=== PATIENT | male | born 1960 | race Caucasian/White ===

== ENCOUNTER 2016-04-07 19:54 | Emergency (ER) | payer OTHER ==
[~2016-04-07 19:54] MED LIST: AMLODIPINE BESYL5 MG PO; DEPAKOTE500 MG PO; HYCET1 ML PO; IPRATROPIUM BR0.02 % IN; LEVOTHYROXINE100 MCG PO; LOSARTAN POTASS25 MG PO; OLANZAPINE2.5 MG PO; VENTOLIN HFA IN
--- NOTE | 2016-04-07 23:36 | DIAGNOSTIC IMAGING REPORT ---
PROCEDURE: XR CHEST 2 VIEW INDICATION: SHORTNESS OF BREATH TECHNIQUE: PA and lateral views. COMPARISON: Compared to chest x-ray 02/28/2015. FINDINGS: There is mild basilar parenchymal scarring. Lungs are otherwise are clear. Heart and mediastinum are normal. Thorax is normal. IMPRESSION: 1. Negative chest.
--- NOTE | 2016-04-08 00:23 | ED CLINICAL REPORT ---
Clinical Report - Physicians/Mid Levels [facility] [address] [place] [address] 04/07/2016 19:56 Patient: JACK SINGLETON Time Seen: 21:59 Apr 07 2016. Arrived- By private vehicle. Historian- patient. CPT: ER phys charges level 4 (#[id number]). HISTORY OF PRESENT ILLNESS Chief Complaint: COUGH, SORE THROAT, FEVER, MUSCLE ACHES and "FLU". 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 The illness is described as moderate. The patient has had a cough, chest discomfort, difficulty breathing, a sore throat and fever. He has had muscle aches and a nasal discharge. No sputum production or chest pain. Additional history - The patient has had contact with a sick family member with suspected "flu". Similar symptoms previously: None. Recent medical care: Not recently seen/assessed. REVIEW OF SYSTEMS The patient has had a headache. He has had moderate diarrhea. This has occurred several times. No pedal edema, calf pain or difficulty with urination. PAST HISTORY Chronic obstructive pulmonary disease. Pneumonia. Heart Disease. Sciatica. Lumbar Strain. Peptic Ulcer Disease. Congestive Heart Failure. Hypothyroidism. Hypertension. Bipolar Disorder. COPD - Chronic Obstructive Pulmonary Disease. --21:19 Reginaldo Plascencia R.N. ADDITIONAL SURGERIES: Cholecystectomy. Endoscopy. Hernia Repair. Medications: AmLODIPine Besylate Oral (Tablet 5 mg) 1 tablet, daily. CeleXA Oral 40 mg, daily. HydrOXYzine HCl Oral 25 mg, daily. Levothyroxine Sodium Oral 175 mcg, daily. Losartan Potassium Oral (Tablet 25 mg) 1 tablet, daily. Ventolin HFA Inhalation 2 puffs, 4x a day. ZyPREXA Oral 7.5 mg, daily. Allergies: Naproxen.(nausea) Tegretol. SOCIAL HISTORY Heavy tobacco smoker (cigarette)- 1-2 packs per day. No alcohol use or drug use. ADDITIONAL NOTES The nursing notes have been reviewed. PHYSICAL EXAM Vital Signs: 04/07/2016 21:15 BP: 162/95. HR: 113. RR: 26. O2 saturation: 94%. Temp: 97.4 F. Pain level now: 10. Appearance: Alert. No acute distress. ENT: Nose normal. Pharynx normal. Neck: Normal inspection. CVS: Normal heart rate and rhythm. Heart sounds normal. Pulses normal. Respiratory: Mild respiratory distress. Expiratory moderate bilateral wheezes diffusely. Abdomen: Soft and nontender. Skin: Skin warm. Normal skin color. No rash. Extremities: Extremities exhibit normal ROM. No calf tenderness. No lower extremity edema. Neuro: Oriented X 3. No motor deficit. No sensory deficit. Reflexes normal. LABS, X-RAYS, AND EKG Chest X-ray: No acute disease. Views: PA and lateral. Technique: good. The X-rays were independently viewed by me and interpreted contemporaneously by me. A comparison with prior films reveals that the findings are unchanged. Laboratory Tests: Culture, Strep Screen: (STEVEN: 04/07/2016 21:20) ( MsgRcvd 04/07/2016 21:46) Final results Test Result Flag Units (Reference) RAPID STREP SCREEN - THROAT CALLED TO: NA -- DATE: 04/07/16 NEGATIVE SCREEN: RAPID STREP SCREEN NEGATIVE; CONFIRMATION TO FOLLOW Rapid Influenza Screen: (STEVEN: 04/07/2016 21:20) ( MsgRcvd 04/07/2016 21:51) Final results SPECIMEN DESCRIPTION: NASAL SWAB Test Result Flag Units (Reference) RAPID INFLUENZA SCREEN CALLED TO: ED -- DATE: 04/07/16 INFLUENZA A: NEGATIVE SCREEN FOR INFLUENZA A INFLUENZA B: POSITIVE SCREEN FOR INFLUENZA B . PROGRESS AND PROCEDURES Course of Care: Albuterol HHN Much better: Wheezing resolved. Coughing up some productive phlegm now. Patient is stable. Symptoms much better. Patient/family counseled. Disposition: Discharged. Condition: stable and improved. CLINICAL IMPRESSION Acute exacerbation of COPD. Acute influenza B pharyngitis, laryngitis and tracheitis. INSTRUCTIONS Do not work for three days until better. Drink plenty of fluids. Warnings: Further evaluation is necessary. GENERAL WARNINGS: Return or contact your physician immediately if your condition worsens or changes unexpectedly, if not improving as expected, or if other problems arise. Your Current Medications: CONTINUE TAKING THE FOLLOWING MEDICATIONS: AmLODIPine Besylate Oral : Tablet 5 mg, 1 tablet daily. CeleXA Oral : 40 mg daily. HydrOXYzine HCl Oral : 25 mg daily. Levothyroxine Sodium Oral : 175 mcg daily. Losartan Potassium Oral : Tablet 25 mg, 1 tablet daily. Ventolin HFA Inhalation : 2 puffs 4x a day. ZyPREXA Oral : 7.5 mg daily. Prescription Medications: Albuterol HFA oral inhaler: inhale 2 puffs via spacer every 4 hours as needed for wheezing or difficulty breathing, until symptoms improve. Dispense one (1) unit. One refill. Zithromax 250 mg tablets: take 2 orally today, followed by 1 daily for the next 4 days. No refills. Substitution is permissible. Soma 350 mg: Take 1 orally every 6 hours as needed for muscle spasm. Dispense twenty (20). No refills. Substitution is permissible. Prednisone 40 mg a day for 3 days. OTC Medications: Motrin (available over the counter): take according to label instructions. Follow-up: Follow up with your doctor in three days. Call for the next available appointment. Understanding of the discharge instructions verbalized by patient. (Electronically signed by Judah Neff MD 04/09/2016 20:17)
--- NOTE | 2016-04-08 00:23 | ED NURSING NOTES ---
Clinical Report - Nurses [facility] [address] [place] [address] 04/07/2016 19:56 Patient: JACK SINGLETON TRIAGE Triage time 21:15. Acuity: LEVEL 3. Chief Complaint: CHILLS, MUSCLE ACHES, HEADACHE, SORE THROAT, DYSPNEA and COUGH. 21:20. Alert. SEPSIS SCREEN: Sepsis Screen. Negative (no infection suspected/documented). VERITO COMA SCORE: Verito Coma Scale: 15- eyes open spontaneously (4); best verbal response- oriented x 4 (5); best motor response- obeys commands (6). --21:20 Reginaldo Plascencia R.N. 21:15 04/07/16. BP: 162/95. HR: 113. RR: 26. O2 saturation: 94%. Temp: 97.4 F. Pain level now: 09/09. --21:20 Reginaldo Plascencia R.N. Weight: 81.6 kg estimated. Height/Length: 67 inches Estimated. BMI: 28.2. --21:15 Irma Espinal R.N. Medications AmLODIPine Besylate Oral (Tablet 5 mg) 1 tablet, daily. CeleXA Oral 40 mg, daily. HydrOXYzine HCl Oral 25 mg, daily. Levothyroxine Sodium Oral 175 mcg, daily. Losartan Potassium Oral (Tablet 25 mg) 1 tablet, daily. Ventolin HFA Inhalation 2 puffs, 4x a day. ZyPREXA Oral 7.5 mg, daily. --21:19 Reginaldo Plascencia R.N. Medication/allergy information source: the patient. --21:20 Reginaldo Plascencia R.N. Allergies Naproxen.(nausea) Tegretol. --21:19 Reginaldo Plascencia R.N. History Arrived by private vehicle. Historian: patient. Unaccompanied. Primary physician (Carin). Onset. (3 - 4 days ago). 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 PAST MEDICAL HX: Immunizations: up-to-date. SOCIAL HX: Current every day heavy tobacco smoker- 1-2 packs per day. No alcohol use or drug use. No infectious disease exposure. ABUSE ASSESSMENT: No report of abuse. FALL RISK ASSESSMENT: Fall risk assessment completed. No fall risk identified. NUTRITIONAL RISK ASSESSMENT: The nutritional risk assessment revealed no deficiencies. FUNCTIONAL ASSESSMENT: Functional assessment: no impairments noted. LEARNING NEEDS ASSESSMENT: The learning needs assessment revealed no barriers. SKIN INTEGRITY ASSESSMENT: Skin integrity risk assessment completed. No skin integrity risk identified. --21:20 Reginaldo Plascencia R.N. PROBLEMS: Heart Disease. Sciatica. Lumbar Strain. Peptic Ulcer Disease. Congestive Heart Failure. Hypothyroidism. Hypertension. Bipolar Disorder. COPD - Chronic Obstructive Pulmonary Disease. --21:19 Reginaldo Plascencia R.N. ADDITIONAL SURGERIES: Cholecystectomy. Endoscopy. Hernia Repair. --21:19 Reginaldo Plascencia R.N. Interventions ID band on patient. To treatment room. --21:20 Reginaldo Plascencia R.N. PHYSICAL ASSESSMENT Ambulatory to room. GENERAL / NEURO / PSYCH: Alert. Oriented X 4. RESPIRATORY: Mild respiratory distress. Expiratory bilateral wheezes diffusely. CVS: Cardiac rhythm: sinus tachycardia. Capillary refill less than 2 seconds. GI / : Abdomen soft. SKIN: Skin intact. Skin is warm and dry. Normal skin turgor. --22:03 Reginaldo Smith R.N. NURSING PROGRESS NOTES Patient gowned. Reassurance given to the patient. Patient identifiers checked. Call light placed in reach. Side rails up x 1. Bed placed in lowest position. Brakes of bed on. Patient ready for evaluation- chart flagged and ED physician notified. --22:03 Reginaldo Smith R.N. 22:27 04/07/2016 Duoneb (Ipratropium-Albuterol) Neb TX Nebulizer 1 unit dose given. Given by the respiratory therapist. Allergies verified and confirmed 5 rights. --22:52 Jose Clark, ER Wing Mailer Machine Operator Care transferred and report received (Reginaldo Levin, RN). --23:40 Irma Espinal R.N. DISPOSITION / DISCHARGE Departure time: 0030. Condition at departure: improved. No learning barriers present. Discharge instructions provided and reviewed with the patient. Reviewed medication(s). Prescription(s) given to the patient (Albuterol, Zithromax, Soma, Prednisone). Patient verbalized understanding. Written instructions provided in Italian. The patient was discharged by the physician. He was discharged home and unaccompanied at time of discharge. He left the Emergency Department ambulatory and via private vehicle. Patient driving. Medication list reviewed and validated with the patient. --04:38 Irma Espinal R.N. 00:30 04/08/16. BP: 146/80. HR: 100. RR: 20 (unlabored). O2 saturation: 96% on room air. Temp: deferred. Pain level now: 11/09. --04:38 Irma Espinal R.N. Locked/Released at 04/08/2016 4:40 by Irma Espinal R.N.
--- NOTE | 2016-04-08 00:23 | ED CLINICAL REPORT ---
Clinical Report - Physicians/Mid Levels [facility] [address] [place] [address] 04/07/2016 19:56 Patient: JACK SINGLETON Time Seen: 21:59 Apr 07 2016. Arrived- By private vehicle. Historian- patient. CPT: ER phys charges level 4 (#[id number]). HISTORY OF PRESENT ILLNESS Chief Complaint: COUGH, SORE THROAT, FEVER, MUSCLE ACHES and "FLU". 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 The illness is described as moderate. The patient has had a cough, chest discomfort, difficulty breathing, a sore throat and fever. He has had muscle aches and a nasal discharge. No sputum production or chest pain. Additional history - The patient has had contact with a sick family member with suspected "flu". Similar symptoms previously: None. Recent medical care: Not recently seen/assessed. REVIEW OF SYSTEMS The patient has had a headache. He has had moderate diarrhea. This has occurred several times. No pedal edema, calf pain or difficulty with urination. PAST HISTORY Chronic obstructive pulmonary disease. Pneumonia. Heart Disease. Sciatica. Lumbar Strain. Peptic Ulcer Disease. Congestive Heart Failure. Hypothyroidism. Hypertension. Bipolar Disorder. COPD - Chronic Obstructive Pulmonary Disease. --21:19 Reginaldo Plascencia R.N. ADDITIONAL SURGERIES: Cholecystectomy. Endoscopy. Hernia Repair. Medications: AmLODIPine Besylate Oral (Tablet 5 mg) 1 tablet, daily. CeleXA Oral 40 mg, daily. HydrOXYzine HCl Oral 25 mg, daily. Levothyroxine Sodium Oral 175 mcg, daily. Losartan Potassium Oral (Tablet 25 mg) 1 tablet, daily. Ventolin HFA Inhalation 2 puffs, 4x a day. ZyPREXA Oral 7.5 mg, daily. Allergies: Naproxen.(nausea) Tegretol. SOCIAL HISTORY Heavy tobacco smoker (cigarette)- 1-2 packs per day. No alcohol use or drug use. ADDITIONAL NOTES The nursing notes have been reviewed. PHYSICAL EXAM Vital Signs: 04/07/2016 21:15 BP: 162/95. HR: 113. RR: 26. O2 saturation: 94%. Temp: 97.4 F. Pain level now: 10. Appearance: Alert. No acute distress. ENT: Nose normal. Pharynx normal. Neck: Normal inspection. CVS: Normal heart rate and rhythm. Heart sounds normal. Pulses normal. Respiratory: Mild respiratory distress. Expiratory moderate bilateral wheezes diffusely. Abdomen: Soft and nontender. Skin: Skin warm. Normal skin color. No rash. Extremities: Extremities exhibit normal ROM. No calf tenderness. No lower extremity edema. Neuro: Oriented X 3. No motor deficit. No sensory deficit. Reflexes normal. LABS, X-RAYS, AND EKG Chest X-ray: No acute disease. Views: PA and lateral. Technique: good. The X-rays were independently viewed by me and interpreted contemporaneously by me. A comparison with prior films reveals that the findings are unchanged. Laboratory Tests: Culture, Strep Screen: (STEVEN: 04/07/2016 21:20) ( MsgRcvd 04/07/2016 21:46) Final results Test Result Flag Units (Reference) RAPID STREP SCREEN - THROAT CALLED TO: NA -- DATE: 04/07/16 NEGATIVE SCREEN: RAPID STREP SCREEN NEGATIVE; CONFIRMATION TO FOLLOW Rapid Influenza Screen: (STEVEN: 04/07/2016 21:20) ( MsgRcvd 04/07/2016 21:51) Final results SPECIMEN DESCRIPTION: NASAL SWAB Test Result Flag Units (Reference) RAPID INFLUENZA SCREEN CALLED TO: ED -- DATE: 04/07/16 INFLUENZA A: NEGATIVE SCREEN FOR INFLUENZA A INFLUENZA B: POSITIVE SCREEN FOR INFLUENZA B . PROGRESS AND PROCEDURES Course of Care: Albuterol HHN Much better: Wheezing resolved. Coughing up some productive phlegm now. Patient is stable. Symptoms much better. Patient/family counseled. Disposition: Discharged. Condition: stable and improved. CLINICAL IMPRESSION Acute exacerbation of COPD. Acute influenza B pharyngitis, laryngitis and tracheitis. INSTRUCTIONS Do not work for three days until better. Drink plenty of fluids. Warnings: Further evaluation is necessary. GENERAL WARNINGS: Return or contact your physician immediately if your condition worsens or changes unexpectedly, if not improving as expected, or if other problems arise. Your Current Medications: CONTINUE TAKING THE FOLLOWING MEDICATIONS: AmLODIPine Besylate Oral : Tablet 5 mg, 1 tablet daily. CeleXA Oral : 40 mg daily. HydrOXYzine HCl Oral : 25 mg daily. Levothyroxine Sodium Oral : 175 mcg daily. Losartan Potassium Oral : Tablet 25 mg, 1 tablet daily. Ventolin HFA Inhalation : 2 puffs 4x a day. ZyPREXA Oral : 7.5 mg daily. Prescription Medications: Albuterol HFA oral inhaler: inhale 2 puffs via spacer every 4 hours as needed for wheezing or difficulty breathing, until symptoms improve. Dispense one (1) unit. One refill. Zithromax 250 mg tablets: take 2 orally today, followed by 1 daily for the next 4 days. No refills. Substitution is permissible. Soma 350 mg: Take 1 orally every 6 hours as needed for muscle spasm. Dispense twenty (20). No refills. Substitution is permissible. Prednisone 40 mg a day for 3 days. OTC Medications: Motrin (available over the counter): take according to label instructions. Follow-up: Follow up with your doctor in three days. Call for the next available appointment. Understanding of the discharge instructions verbalized by patient. (Electronically signed by Judah Neff MD 04/09/2016 20:17)
--- NOTE | 2016-04-08 00:24 | ED ORDER SUMMARY ---
..... Patient: JACK SINGLETON OrderSheet [facility] VisitID: [id number] [place] [address] 55y, M Registration Date/Time: 04/07/2016 ORDER SHEET Weight: 81.6 kg (estimated) Allergies: Naproxen, Tegretol GENERAL ORDERS: Rapid Influenza Screen (Nasal Pharyngeal) (nasal swab) Urgent (21:30 04/07/2016 JQuivey R.N. per protocol) (Ack 21:32 LTapper) (21:54 JRomanelli R.N.) Culture, Strep Screen Urgent (21:31 04/07/2016 JQuivey R.N. per protocol) (Ack 21:32 LTapper) (21:57 JRomanelli R.N.) RT Evaluation Stat (21:59 04/07/2016 Coltonelli R.N. verbal order read back to Maite GARCIA) (Ack 22:01 LTapper) (22:52 CHagerty ER Mate Fishing Vessel) Chest 2V Urgent (21:59 04/07/2016 JRomanelli R.N. verbal order read back to Maite GARCIA) (Ack 22:01 LTapper) (22:37 MCabell) MEDICATION ORDERS: DuoNeb Neb Tx 1 unit dose (NOW) (21:58 04/07/2016 Eva R.N. verbal order read back to Maite GARCIA) (22:[facility] F[facility] IV FLUIDS: ORDER SHEET NOTES: [Electronically signed by Irma Espinal R.N. (04:40 04/08/2016)] [Electronically signed by Judah Neff MD (20:17 04/09/2016)] [Electronically locked/signed by Irma Espinal R.N. (04:40 04/08/2016)]
--- NOTE | 2016-04-08 00:24 | ED ORDER SUMMARY ---
..... Patient: JACK SINGLETON OrderSheet [facility] VisitID: [id number] [place] [address] 55y, M Registration Date/Time: 04/07/2016 ORDER SHEET Weight: 81.6 kg (estimated) Allergies: Naproxen, Tegretol GENERAL ORDERS: Rapid Influenza Screen (Nasal Pharyngeal) (nasal swab) Urgent (21:30 04/07/2016 JQuivey R.N. per protocol) (Ack 21:32 LTapper) (21:54 JRomanelli R.N.) Culture, Strep Screen Urgent (21:31 04/07/2016 JQuivey R.N. per protocol) (Ack 21:32 LTapper) (21:57 JRomanelli R.N.) RT Evaluation Stat (21:59 04/07/2016 Coltonelli R.N. verbal order read back to Maite GARCIA) (Ack 22:01 LTapper) (22:52 CHagerty ER Director Of Email Marketing) Chest 2V Urgent (21:59 04/07/2016 JRomanelli R.N. verbal order read back to Maite GARCIA) (Ack 22:01 LTapper) (22:37 MCabell) MEDICATION ORDERS: DuoNeb Neb Tx 1 unit dose (NOW) (21:58 04/07/2016 Eva R.N. verbal order read back to Maite GARCIA) (22:52 [facility] Director Of Email Marketing) IV FLUIDS: ORDER SHEET NOTES: [Electronically signed by Irma Espinal R.N. (04:40 04/08/2016)] [Electronically signed by Judah Neff MD (20:17 04/09/2016)] [Electronically locked/signed by Irma Espinal R.N. (04:40 04/08/2016)]
--- NOTE | 2016-04-09 20:17 | ED MAR SUMMARY ---
..... Medication Administration Record [facility] [address] [place] [address] Patient: JACK SINGLETON Visit ID: [id number] 55y, M Weight: 81.6 kg Height/Length: 67 in BMI: 28.2 ALLERGIES: Naproxen, Tegretol Given 22:27 04/07/2016 Jose Clark, ER Parts Analyst Medication Administered: DUONEB [NEB TX] (IPRATROPIUM-ALBUTEROL), Dose: 1 unit dose Nebulizer Neb TX. Medication Ordered: DuoNeb Neb Tx 1 unit dose (NOW).
--- NOTE | 2016-04-09 20:17 | ED MED RECONCILIATION SUMMARY ---
Patient: JACK SINGLETON Medication Reconciliation Report [facility] VisitID: [id number] [address] [place] [address] 55y, M Registration Date/Time: 04/07/2016 Weight: 81.6 kg Height/Length: 67 in. BMI: 28.2 ALLERGIES: Naproxen, Tegretol The patient's Home Medications are listed below: CONTINUE TAKING THE FOLLOWING MEDICATIONS: AmLODIPine Besylate Oral (5 mg) 1 tablet, daily CeleXA Oral 40 mg, daily HydrOXYzine HCl Oral 25 mg, daily Levothyroxine Sodium Oral 175 mcg, daily Losartan Potassium Oral (25 mg) 1 tablet, daily Ventolin HFA Inhalation 2 puffs, 4x a day ZyPREXA Oral 7.5 mg, daily The source(s) of the original Home Medication information: patient The following Medications were given to the patient in the Emergency Department: Duoneb [Neb Tx] Neb TX 1 unit dose, administered: 04/07/2016 10:27:00 PM The following Medications were prescribed to the patient: Motrin (available over the counter): take according to label instructions. -- Judah Neff MD Prednisone 40 mg a day for 3 days. -- Judah Neff MD Albuterol HFA oral inhaler: inhale 2 puffs via spacer every 4 hours as needed for wheezing or difficulty breathing, until symptoms improve. Dispense one (1) unit. One refill. -- Judah Neff MD Zithromax 250 mg tablets: take 2 orally today, followed by 1 daily for the next 4 days. No refills. Substitution is permissible. -- Judah Neff MD Soma 350 mg: Take 1 orally every 6 hours as needed for muscle spasm. Dispense twenty (20). No refills. Substitution is permissible. -- Judah Neff MD
--- NOTE | 2016-04-09 20:17 | ED MAR SUMMARY ---
..... Medication Administration Record [facility] [address] [place] [address] Patient: JACK SINGLETON Visit ID: [id number] 55y, M Weight: 81.6 kg Height/Length: 67 in BMI: 28.2 ALLERGIES: Naproxen, Tegretol Given 22:27 04/07/2016 Jose Clark, ER Concession Manager Medication Administered: DUONEB [NEB TX] (IPRATROPIUM-ALBUTEROL), Dose: 1 unit dose Nebulizer Neb TX. Medication Ordered: DuoNeb Neb Tx 1 unit dose (NOW).
--- NOTE | 2016-04-09 20:17 | ED DISCHARGE INSTRUCTIONS ---
Patient: JACK SINGLETON General Instructions [facility] VisitID: [id number] [place] [address] 55y, M Registration Date/Time: 04/07/2016 Acute exacerbation of COPD. Acute influenza B pharyngitis, laryngitis and tracheitis. INSTRUCTIONS Do not work for three days until better. Drink plenty of fluids. Warnings: Further evaluation is necessary. GENERAL WARNINGS: Return or contact your physician immediately if your condition worsens or changes unexpectedly, if not improving as expected, or if other problems arise. Your Current Medications: CONTINUE TAKING THE FOLLOWING MEDICATIONS: AmLODIPine Besylate Oral : Tablet 5 mg, 1 tablet daily. CeleXA Oral : 40 mg daily. HydrOXYzine HCl Oral : 25 mg daily. Levothyroxine Sodium Oral : 175 mcg daily. Losartan Potassium Oral : Tablet 25 mg, 1 tablet daily. Ventolin HFA Inhalation : 2 puffs 4x a day. ZyPREXA Oral : 7.5 mg daily. Prescription Medications: Albuterol HFA oral inhaler: inhale 2 puffs via spacer every 4 hours as needed for wheezing or difficulty breathing, until symptoms improve. Dispense one (1) unit. One refill. Zithromax 250 mg tablets: take 2 orally today, followed by 1 daily for the next 4 days. No refills. Substitution is permissible. Soma 350 mg: Take 1 orally every 6 hours as needed for muscle spasm. Dispense twenty (20). No refills. Substitution is permissible. Prednisone 40 mg a day for 3 days. OTC Medications: Motrin (available over the counter): take according to label instructions. Follow-up: Follow up with your doctor in three days. Call for the next available appointment. Understanding of the discharge instructions verbalized by patient. ADDITIONAL INFORMATION Viral Respiratory Illness W/ Wheezing [Adult] You have an Upper Respiratory Illness (URI) caused by a virus. This illness is contagious during the first few days. It is spread through the air by coughing and sneezing or by direct contact (touching the sick person and then touching your own eyes, nose or mouth). When the infection causes a lot of irritation, the air passages can go into spasm. This causes wheezing and shortness of breath. Most viral illnesses resolve within 7-10 days with rest and simple home remedies, although the illness may sometimes last for several weeks. Antibiotics will not kill a virus and are generally not prescribed for this condition. Home Care: If symptoms are severe, rest at home for the first 2-3 days. When resuming activity, don't let yourself become overly tired. Avoid exposure to cigarette smoke (yours or others). You may use acetaminophen (Tylenol) or ibuprofen (Motrin, Advil) to control pain, unless another medicine was prescribed. [NOTE: If you have chronic liver or kidney disease or ever had a stomach ulcer or GI bleeding, talk with your doctor before using these medicines.] (Aspirin should never be used in anyone under 18 years of age who is ill with a fever. It may cause severe liver damage.) Your appetite may be poor so a light diet is fine. Avoid dehydration by drinking 6-8 glasses of fluids per day (water, soft drinks, juices, tea, soup). Extra fluids will help loosen secretions in the nose and lungs. [id number] cold medicines will not shorten the duration of the illness, but may be helpful for the following symptoms: cough (Robitussin DM); sore throat (Chloraseptic lozenges or spray); nasal and sinus congestion (Actifed or Sudafed). [NOTE: Do not use decongestants if you have high blood pressure.] Follow Up with your doctor or as advised if you are not improving over the next week. Get Prompt Medical Attention if any of the following occur: Cough with lots of colored sputum (mucus) or blood in your sputum Chest pain, shortness of breath, wheezing or difficulty breathing Severe headache; face, neck or ear pain Fever of 100.4F (38C) or higher, or as directed by your healthcare provider Unable to swallow due to throat pain COPD Flare Both emphysema and chronic bronchitis are forms of chronic obstructive pulmonary disease (COPD). It is most often caused by many years of smoking tobacco. Many things can make your lung disease suddenly get worse. These causes include the common cold, pneumonia, acute bronchitis, missing doses of your regular breathing medicines, or being around smoke, dust, or other air pollutants. A COPD flare may last 7 to 14 days. Your doctor may prescribe medicineto relax your airways and prevent wheezing. Your doctor may also prescribe antibiotics if he or she thinks you havea bacterial infection. Prednisone can helpease inflammation in a severe attack. Home care Here are things you can do at home: Drink lots of water or other fluids (at least 10 glasses a day) during an attack. This will loosen lung secretions and make it easier to breathe. If you have heart or kidney disease, check with your doctor before you drink extra amounts of fluids. Take prescribed medicine exactly at the times advised. If you have a hand-held inhaler or aerosol breathing medicine, don't use it more than once every 4 hours, unless your doctor tells you to. If you were givenan antibiotic or prednisone, take all of the medicine even if you are feeling better after a few days. Don't smoke. Avoid being aroundthe smoke of others. If you were given an inhaler, use it exactly as directed. If you need to use it more often than prescribed, your condition may be getting worse. Call your doctor. Follow-up care Follow up with your health care provider.If you are 65 or older or have chronic asthma or COPD, you should get a single dose of the pneumococcal vaccine and aflu shot each year. You may need a second dose of the pneumococcal vaccine if you had the first dose at a younger age. Your health care provider will let you know if you need a second dose. For all other people, the usual dose for the pneumococcal vaccine is 1 or 2 shots. Yourprovider can discuss this with you. When to seek medical care Get prompt medical attention ifany of these occur: Increased wheezing or shortness of breath Need to use your inhalers more often than usual without relief Fever of 100.4F(38C) or higher, or as directed by your health care provider Coughing up lots of dark-colored or bloody sputum (mucus) Chest pain with each breath You do not start to improve within 24 hours Albuterol Sulfate Pressurized inhalation, suspension What is this medicine? ALBUTEROL (al BYOO ter ole) is a bronchodilator. It helps open up the airways in your lungs to make it easier to breathe. This medicine is used to treat and to prevent bronchospasm. How should I use this medicine? This medicine is for inhalation through the mouth. Follow the directions on your prescription label. Take your medicine at regular intervals. Do not use more often than directed. Make sure that you are using your inhaler correctly. Ask you doctor or health care provider if you have any questions. Talk to your zone maintenance technician regarding the use of this medicine in children. Special care may be needed. What side effects may I notice from receiving this medicine? Side effects that you should report to your doctor or health healthcare network pricing consultant as soon as possible: allergic reactions like skin rash, itching or hives, swelling of the face, lips, or tongue breathing problems chest pain feeling faint or lightheaded, falls high blood pressure irregular heartbeat fever muscle cramps or weakness pain, tingling, numbness in the hands or feet vomiting Side effects that usually do not require medical attention (report to your doctor or health healthcare network pricing consultant if they continue or are bothersome): cough difficulty sleeping headache nervousness or trembling stomach upset stuffy or runny nose throat irritation unusual taste What may interact with this medicine? anti-infectives like chloroquine and pentamidine caffeine cisapride diuretics medicines for colds medicines for depression or for emotional or psychotic conditions medicines for weight loss including some herbal products methadone some antibiotics like clarithromycin, erythromycin, levofloxacin, and linezolid some heart medicines steroid hormones like dexamethasone, cortisone, hydrocortisone theophylline thyroid hormones What if I miss a dose? If you miss a dose, use it as soon as you can. If it is almost time for your next dose, use only that dose. Do not use double or extra doses. Where should I keep my medicine? Keep out of the reach of children. Store at room temperature between 15 and 30 degrees C (59 and 86 degrees F). The contents are under pressure and may burst when exposed to heat or flame. Do not freeze. This medicine does not work as well if it is too cold. Throw away any unused medicine after the expiration date. Inhalers need to be thrown away after the labeled number of puffs have been used or by the expiration date; whichever comes first. Ventolin HFA should be thrown away 12 months after removing from foil pouch. Check the instructions that come with your medicine. What should I tell my health care provider before I take this medicine? They need to know if you have any of the following conditions: diabetes heart disease or irregular heartbeat high blood pressure pheochromocytoma seizures thyroid disease an unusual or allergic reaction to albuterol, levalbuterol, sulfites, other medicines, foods, dyes, or preservatives or trying to get breast-feeding What should I watch for while using this medicine? Tell your doctor or health healthcare network pricing consultant if your symptoms do not improve. Do not use extra albuterol. If your asthma or bronchitis gets worse while you are using this medicine, call your doctor right away. If your mouth gets dry try chewing sugarless gum or sucking hard candy. Drink water as directed. You have been given the following additional information: Uri, Viral W/ Wheezing (Adult) COPD Flare Albuterol Sulfate Pressurized inhalation, suspension Do not work for three days until better. (Electronically signed by Judah Neff MD 04/09/2016 20:17)
--- NOTE | 2016-04-09 20:17 | ED MED RECONCILIATION SUMMARY ---
Patient: JACK SINGLETON Medication Reconciliation Report [facility] VisitID: [id number] [address] [place] [address] 55y, M Registration Date/Time: 04/07/2016 Weight: 81.6 kg Height/Length: 67 in. BMI: 28.2 ALLERGIES: Naproxen, Tegretol The patient's Home Medications are listed below: CONTINUE TAKING THE FOLLOWING MEDICATIONS: AmLODIPine Besylate Oral (5 mg) 1 tablet, daily CeleXA Oral 40 mg, daily HydrOXYzine HCl Oral 25 mg, daily Levothyroxine Sodium Oral 175 mcg, daily Losartan Potassium Oral (25 mg) 1 tablet, daily Ventolin HFA Inhalation 2 puffs, 4x a day ZyPREXA Oral 7.5 mg, daily The source(s) of the original Home Medication information: patient The following Medications were given to the patient in the Emergency Department: Duoneb [Neb Tx] Neb TX 1 unit dose, administered: 04/07/2016 10:27:00 PM The following Medications were prescribed to the patient: Motrin (available over the counter): take according to label instructions. -- Judah Neff MD Prednisone 40 mg a day for 3 days. -- Judah Neff MD Albuterol HFA oral inhaler: inhale 2 puffs via spacer every 4 hours as needed for wheezing or difficulty breathing, until symptoms improve. Dispense one (1) unit. One refill. -- Judah Neff MD Zithromax 250 mg tablets: take 2 orally today, followed by 1 daily for the next 4 days. No refills. Substitution is permissible. -- Judah Neff MD Soma 350 mg: Take 1 orally every 6 hours as needed for muscle spasm. Dispense twenty (20). No refills. Substitution is permissible. -- Judah Neff MD
== END 2016-04-08 00:30 | disposition home or self-care (01) ==
LOC: ED SRH 19:54
DX: J44.1 Chronic obstructive pulmonary disease with (acute) exacerbation (principal); J10.1 Influenza due to other identified influenza virus with other respiratory manifestations; F31.9 Bipolar disorder, unspecified; I10 Essential (primary) hypertension; I50.9 Heart failure, unspecified; Z79.51 Long term (current) use of inhaled steroids; Z79.899 Other long term (current) drug therapy; Z88.8 Allergy status to other drugs, medicaments and biological substances; F17.210 Nicotine dependence, cigarettes, uncomplicated; Z88.6 Allergy status to analgesic agent
CPT/HCPCS: 90154; 90159; 90627; 91400

== ENCOUNTER 2016-04-09 19:44 | Emergency (ER) | payer OTHER ==
--- NOTE | 2016-04-09 22:27 | DIAGNOSTIC IMAGING REPORT ---
PROCEDURE: XR CHEST 2 VIEW INDICATION: SHORTNESS OF BREATH TECHNIQUE: PA and lateral views. COMPARISON: Impaired to chest x-ray and 04/07/2016. FINDINGS: Lungs are clear. Heart and mediastinum are normal. Thorax is normal. IMPRESSION: 1. Negative chest.
--- NOTE | 2016-04-09 23:46 | ED NURSING NOTES ---
Clinical Report - Nurses [facility] [address] [place] [address] 04/09/2016 19:45 Patient: JACK SINGLETON TRIAGE Triage time 20:03. Acuity: LEVEL 3. Chief Complaint: HEADACHE, DYSPNEA and COUGH (Jack says he was seen in the ER 2 days ago, reports he was dx with Influenza B and given Prednisone and Soma for pain and an antibiotic but has had no relief. He says he has gotten worse over the last 2 days. Smoking 10 cigarettes in the last 2 days versus a normal 1.5 packs. Alleviating factors: warm fluids help sore throat; Aggravating factors: moving around leads to dyspnea on exertion.). Alert. SEPSIS SCREEN: Sepsis Screen: negative. Infection suspected/documented. --20:08 Shaq Hidalgo R.N. 19:59 04/09/16. BP: 158/81 (regular adult cuff) taken on the left arm, via an automated monitor, while sitting. HR: 108 (tachycardic). RR: 26 (regular, unlabored and rapid). O2 saturation: 92% on room air. Temp: 98.6 F (oral). Pain level now: 11/09. --20:08 Shaq Hidalgo R.N. Weight: 88.4 kg stated. Height/Length: 69 inches Per Patient. BMI: 28.8. --20:03 Shaq Hidalgo R.N. Medications AmLODIPine Besylate Oral (Tablet 5 mg) 1 tablet, daily. CeleXA Oral 40 mg, daily. --20:04 Shaq Hidalgo R.N. HydrOXYzine HCl Oral 25 mg, daily. Levothyroxine Sodium Oral 175 mcg, daily. Losartan Potassium Oral (Tablet 25 mg) 1 tablet, daily. Ventolin HFA Inhalation 2 puffs, 4x a day. ZyPREXA Oral 7.5 mg, daily. --20:04 Shaq Hidalgo R.N. PredniSONE Oral. --20:05 Shaq Hidalgo R.N. Soma Oral. --20:05 Shaq Hidalgo R.N. Antibiotic. --20:05 Shaq Hidalgo R.N. Methocarbamol Oral. --20:05 Shaq Hidalgo R.N. Medication/allergy information source: the patient. --20:08 Shaq Hidalgo R.N. Allergies Naproxen.(nausea) Tegretol. --20:04 Shaq Hidalgo R.N. History Arrived by private vehicle. Historian: patient. Unaccompanied. Primary physician (Lisa Del Rosario). The patient has had chills, severe fatigue and abdominal pain, poor appetite and chest pain (When coughing). He has had moderate difficulty breathing. The patient has also had dyspnea on exertion, diarrhea, nausea and dizziness. Reports severe muscle aches and experiencing mild sweating episodes. He has had a severe, sharp frontal headache. No fever, vomiting or difficulty with urination. Treatment ENVIRONMENTAL HEALTH AND SAFETY INTERN: None. PAST MEDICAL HX: Has not received seasonal influenza immunization. SOCIAL HX: Current every day heavy tobacco smoker (cigarette)- 1-2 packs per day. No alcohol use or drug use. He has not traveled outside the [place] The patient was not exposed to MRSA. No infectious disease exposure. ABUSE ASSESSMENT: Abuse assessment: The patient was asked "Do you feel safe in your home?" and "Has anyone hurt you or threatened to hurt you?". No report of abuse. SELF HARM ASSESSMENT: A self harm assessment was performed. The patient answered "no" to the question "Do you have thoughts of harming or killing yourself?" and "Have you recently had thoughts about harming or killing others?". FALL RISK ASSESSMENT: Fall risk assessment completed. No fall risk identified. NUTRITIONAL RISK ASSESSMENT: The nutritional risk assessment revealed no deficiencies. FUNCTIONAL ASSESSMENT: Functional assessment: no impairments noted. LEARNING NEEDS ASSESSMENT: The learning needs assessment revealed no barriers. SKIN INTEGRITY ASSESSMENT: Skin integrity risk assessment completed. No skin integrity risk identified. --20:08 Shaq Hidalgo R.N. PROBLEMS: Chronic Back Pain. Pneumonia. Upper Extremity Pain. GI Bleeding. Heart Disease. Abscess Check. Cellulitis. Sciatica. Back Pain. Myofascial Strain. Lumbar Strain. Acute Pain. Lung Disease. Myalgias. Viral Disease. Abnormal Test. Sprain. Cholecystitis. Peptic Ulcer Disease. Congestive Heart Failure. URI. Asthma. Bronchospasm. Bronchitis. Immunizations. Stomach ulcers. Hypothyroidism. Hypertension. Bipolar Disorder. COPD - Chronic Obstructive Pulmonary Disease. Substance Abuse. --20:05 Shaq Hidalgo R.N. ADDITIONAL SURGERIES: Cholecystectomy. Endoscopy. Hernia Repair. --20:05 Shaq Hidalgo R.N. Assessment GENERAL / NEURO / PSYCH: Alert. Oriented X 4. Appears in no acute distress. Verito Coma Scale: 15- eyes open spontaneously (4); best verbal response- oriented x 4 (5); best motor response- obeys commands (6). Patient appears calm and cooperative. RESPIRATORY: Moderate respiratory distress. Expiratory bilateral wheezes posteriorly and in the bases. Coarse crackles present diffusely in both lungs. CVS: Capillary refill less than 2 seconds. SKIN: Skin is warm and dry. --20:08 Shaq Hidalgo R.N. Interventions ID band on patient. To treatment room. --20:08 Shaq Hidalgo R.N. PHYSICAL ASSESSMENT Ambulatory to room. GENERAL / NEURO / PSYCH: Alert. Oriented X 4. Appears in distress. Verito Coma Scale: 15- eyes open spontaneously (4); best verbal response- oriented x 4 (5); best motor response- obeys commands (6). HEENT: Right ear within normal limits. Left ear within normal limits. Pharyngeal erythema. No pharyngeal lesions. RESPIRATORY: Moderate respiratory distress. The patient can speak in full sentences. Nonproductive cough. Chest nontender. Expiratory bilateral wheezes diffusely, anteriorly and posteriorly. Fine crackles present diffusely in both lungs. CVS: Pulses: right radial 2+ and left radial 2+. Capillary refill less than 2 seconds. SKIN: Skin intact. Skin is warm and dry. --20:15 Shaq Hidalgo R.N. NURSING PROGRESS NOTES The initial plan of care for this patient has been created This plan of care was discussed with the patient. Pulse oximeter and NIBP monitor placed on patient. Patient gowned. Reassurance given to the patient. Two patient identifiers checked. Call light placed in reach. Side rails up x 2. Bed placed in lowest position. Brakes of bed on. Patient ready for evaluation- ED physician and PA notified. --20:09 Shaq Hidalgo R.N. Patient transported to radiology by stretcher with tech. --21:03 Shaq Hidalgo R.N. EKG time: (2120). EKG was ordered, performed by a tech and shown to the ED physician. --21:21 Jose Clark, ER Shell Sorter 20:45 04/09/2016 Duoneb (Ipratropium-Albuterol) Neb TX Nebulizer 1 unit dose given. Given by the respiratory therapist. Allergies verified and confirmed 5 rights. --21:23 Shaq Hidalgo R.N. 21:37 04/09/2016 Site #1 started via IV in the left antecubital space with an 20g angiocath, with aseptic technique and good blood return; one attempt. Blood drawn: rainbow set. Labeled in the presence of the patient and sent to the lab. Saline lock flushed with 10 mL saline. --21:37 Shaq Hidalgo R.N. 21:37 04/09/2016 Started bag #1 1000 mL IV Fluids IV NS (Saline); bolus of 500 mL over 30 minute(s) then at 1000 mL/hr via site #1. Allergies verified and confirmed 5 rights. IV patency established. IV site checked: no pain, redness, or swelling. IV flushed thoroughly pre- and post-medication administration. Completed per protocol. --21:37 Shaq Hidalgo R.N. Patient ID band checked for patient name and birthdate: patient confirmed. Blood samples drawn from the right antecubital space with Vacutainer and 22g butterfly by nurse per protocol ; labeled in presence of the patient and sent to lab: blood culture (1st set). --21:38 Shaq Hidalgo R.N. 21:38 04/09/16. BP: 119/80 (regular adult cuff) taken on the right arm, via an automated monitor, while lying. HR: 101 (regular and tachycardic). RR: 26 (regular, unlabored and rapid). O2 saturation: 96% on nasal cannula at 2 liters/minute. --21:39 Shaq Hidalgo R.N. barrel cap setter, pulse oximeter and NIBP monitor placed on patient; technical support assistant- Lead II. --21:39 Shaq Hidalgo R.N. Reassessment after medication administered (Said he started feeling slightly better after first DuoNeb, would like one more.). He has had no adverse reaction. --21:39 Shaq Hidalgo R.N. 23:02 04/09/2016 Albuterol Neb TX Nebulizer 1 unit dose given. Given by the respiratory therapist. Allergies verified and confirmed 5 rights. --23:03 Jose Clark, ER Shell Sorter 23:03 04/09/16. BP: 121/79 (regular adult cuff) taken on the right arm, via an automated monitor, while sitting. HR: 104 (regular and tachycardic). RR: 24 (regular, unlabored and normal). O2 saturation: 100% on nasal cannula at 2 liters/minute. --23:04 Shaq Hidalgo R.N. RESPIRATORY: Moderate respiratory distress. Cough. --23:04 Shaq Hidalgo R.N. 00:07. The patient is calm and resting quietly. ( Cough noted). RESPIRATORY: No respiratory distress. SKIN: Skin is warm and dry. --00:11 Reginaldo Plascencia R.N. 00:24 04/10/2016 Albuterol Neb TX Response: no adverse reaction. --00:24 Shaq Hidalgo R.N. 00:24 04/10/2016 Duoneb Neb TX Response: no adverse reaction. --00:24 Shaq Hidalgo R.N. DISPOSITION / DISCHARGE 23:55 04/09/16. BP: 143/96 (regular adult cuff) taken on the right arm, via an automated monitor, while sitting. HR: 108 (regular, normal rate and strong). RR: 20 (regular, unlabored and normal). O2 saturation: 98% on room air. Temp: 99.7 F (oral). --23:57 Surya Covington Departure time: 00:09. No learning barriers present. Discharge instructions provided and reviewed with the patient. Reviewed medication(s) side effects, precautions, dosing and course information. Prescription(s) given to the patient. Patient verbalized understanding. Written instructions provided in Bulgarian. The patient was discharged home and unaccompanied at time of discharge. He left the Emergency Department ambulatory and via private vehicle. Patient driving. --00:09 Reginaldo Plascencia R.N. 00:05 04/10/2016 IV Fluids IV NS Discontinued: bag #1 infused. Total amount infused: 1000 mL. IV patency established. IV site checked: no pain, redness, or swelling. IV flushed thoroughly. --00:10 Reginaldo Plascencia R.N. 00:07 04/10/2016 Site #1 removed upon discharge. Catheter intact. Bandage applied. --00:09 Reginaldo Plascencia R.N. Locked/Released at 04/10/2016 0:24 by Shaq Hidalgo R.N.
--- NOTE | 2016-04-09 23:46 | ED CLINICAL REPORT ---
Clinical Report - Physicians/Mid Levels [facility] [address] [place] [address] 04/09/2016 19:45 Patient: JACK SINGLETON Time Seen: 21:05. Arrived- By private vehicle. Historian- patient. HISTORY OF PRESENT ILLNESS Chief Complaint: DYSPNEA and HISTORY OF CHRONIC OBSTRUCTIVE PULMONARY DISEASE. This started several days ago and is still present. It was gradual in onset and has been waxing/waning. The dyspnea is described as moderate and is worsened by walking and exertion, is improved by rest and is improved with oxygen. The patient has had sputum production, a cough, wheezing, dyspnea on exertion and anxiety. No fever, chills, calf pain, foot swelling or dizziness. No palpitations. Similar symptoms previously: Recent medical care: The patient was seen recently at this facility in the emergency department. Seen for similar symptoms. Diagnosis: chronic obstructive pulmonary disease and influenza. REVIEW OF SYSTEMS The patient has had a nasal discharge, sinus drainage, muscle aches, a sore throat and joint pain. No eye irritation, nausea, vomiting, abdominal pain or diarrhea. No black stools, bloody stools, headache, fainting episodes or difficulty with urination. No excessive urination, skin rash or enlarged lymph nodes. All systems otherwise negative, except as recorded above. PAST HISTORY PROBLEMS: Chronic Back Pain. Pneumonia. Upper Extremity Pain. GI Bleeding. Heart Disease. Abscess Check. Cellulitis. Sciatica. Back Pain. Myofascial Strain. Lumbar Strain. Acute Pain. Lung Disease. Myalgias. Viral Disease. Abnormal Test. Sprain. Cholecystitis. Peptic Ulcer Disease. Congestive Heart Failure. URI. Asthma. Bronchospasm. Bronchitis. Immunizations. Stomach ulcers. Hypothyroidism. Hypertension. Bipolar Disorder. COPD - Chronic Obstructive Pulmonary Disease - on home O2. Substance Abuse. SURGERIES: Cholecystectomy. Endoscopy. Hernia Repair Hernia Repair. No history of renal failure, deep venous thrombosis or pulmonary embolism. Chronic obstructive pulmonary disease. SOCIAL HISTORY Smoker- current status unknown. No alcohol use or drug use. ADDITIONAL NOTES The nursing notes have been reviewed. PHYSICAL EXAM Vital Signs: 04/09/2016 19:59 BP: 158/81. HR: 108. RR: 26. O2 saturation: 92%. Temp: 98.6 F. Pain level now: 8/10. Appearance: Alert. Patient in mild distress. Eyes: Eyes normal inspection. No pale conjunctivae or scleral icterus. ENT: Ears normal. Nasal discharge present. Pharynx normal. Uvula midline. No pharyngeal erythema. The mucous membranes are not dry. Neck: Normal inspection. No jugular venous distention. Neck supple. CVS: Tachycardia. Heart sounds normal. Pulses normal. Respiratory: Mild respiratory distress. Decreased air movement. Expiratory moderate bilateral wheezes present. No stridor or rales. Abdomen: Soft and nontender. Back: Normal inspection. Skin: Skin warm and dry. Normal skin color. Normal skin turgor. Extremities: Extremities exhibit normal ROM. No calf tenderness. No lower extremity edema. Neuro: Oriented X 3. No motor deficit. No sensory deficit. LABS, X-RAYS, AND EKG EKG: EKG time: (21:21). Regular narrow-complex tachycardia (ventricular rate 105). Sinus tachycardia. Normal P waves. Normal HAYDEN. Normal QRS complex. Normal axis. Non-specific ST segment / T wave abnormalities. Non-specific T wave flattening in lead aVL and V1. The study has been interpreted contemporaneously by me. The EKG appears to be a good tracing. Rhythm Strip #1: Sinus tachycardia (ventricular rate 100). Regular rhythm. Narrow QRS complexes. No ectopy. Chest X-ray: No acute disease. Normal lung markings present. Normal heart size. Mediastinum normal. Great vessels normal. Soft tissues normal. No infiltrate. No fracture. No bony lesion present. Views: PA and lateral. Technique: good. The X-rays were interpreted contemporaneously by me. Laboratory Tests: CBC w Diff: (STEVEN: 04/09/2016 20:05) ( MsgRcvd 04/09/2016 21:38) Final results Test Result Flag Units (Reference) WHITE BLOOD COUNT 8.9 K/uL (4.5-11.5) RED BLOOD COUNT 4.49 L M/uL (4.50-5.90) HEMOGLOBIN 13.7 gm/dL (13.5-17.5) HEMATOCRIT 41.1 % (41.0-53.0) MEAN CELL VOLUME 91 fL (80-100) MEAN CORPUSCULAR HGB 31 pg (26-34) MEAN CORPUSCULAR HGB CONC 33 g/dL (31-37) RED CELL DISTRIBUTION WIDTH 15.5 H % (11.6-14.8) PLATELET COUNT 254 K/uL (150-400) NEUTROPHIL % 74.8 % (50-75) LYMPH % 14.3 L % (25-40) MONO % 10.5 % (3-14) EOSINOPHIL % 0.2 % (0-4) BASOPHIL % 0.2 % (0-2) PT with INR: (STEVEN: 04/09/2016 20:05) ( Mscvd 04/09/2016 21:25) Final results Test Result Flag Units (Reference) INR 0.9 (0.8-1.2) Low Intensity Therapy: INR 1.5-2.0 PT range 18.5-23.1Mod.Intensity Therapy: INR 2.0-3.0 PT range 23.1-31.5High Intensity Therapy: INR 2.5-3.5 PT range 27.4-35.5High Intensity Therapy 2: INR 3.0-4.0 PT range 31.5-39.3 D-DIMER QUANTITATIVE < 0.27 L ug/mLFEU (0.27-0.52) The primary value of this quantitative assay relates toits negative predictive value (i.e. exclusion) of pulmonaryembolism/deep vein thrombosis/DIC.Elevated levels of d-dimer may also occur with:, age, cancer, inflammation, liver disease,post-op, infection, hematoma, coronary disease, peripheralarteriopathy, bleeding disorders and thrombolytic treatment.Results should be correlated with other clinical andradiological data.Testing Methodology: Latex Immunoassay BNP: (STEVEN: 04/09/2016 20:05) ( MsgRcvd 04/09/2016 21:42) Final results Test Result Flag Units (Reference) B-TYPE NATRIURETIC PEPTIDE 60.5 pg/ml (5-100) CHEM 13 PANEL: (STEVEN: 04/09/2016 20:05) ( MsgRcvd 04/09/2016 22:08) Final results Test Result Flag Units (Reference) GLUCOSE 130 H mg/dL (70-110) BUN 17 mg/dL (7-18) CREATININE 1.0 mg/dL (0.6-1.3) Estimated GFR >60 mL/min Estimated GFR- >60 mL/min Note: Persistent reduction over 3 months in eGFR<60 mL/min/1.73 m2 defines CKD. Patients with eGFR values>=60 mL/min/1.73 m2 may also have CKD if evidence ofpersistent proteinuria. Additional information may be foundat www.kidney.org. SODIUM 142 mmol/L (136-145) POTASSIUM 3.4 L mmol/L (3.5-5.1) CHLORIDE 107 mmol/L (98-107) CARBON DIOXIDE 28 mmol/L (21-32) CALCIUM 8.6 mg/dL (8.5-10.1) TOTAL PROTEIN 6.8 g/dL (6.4-8.2) ALBUMIN 3.6 g/dL (3.3-5.0) BILIRUBIN, TOTAL 0.2 mg/dL (0.0-1.0) ALKALINE PHOSPHATASE 67 U/L (46-116) AST (SGOT) 30 U/L (15-37) ALT (SGPT) 44 U/L (12-78) CPK 782 H U/L (24-260) MAGNESIUM 1.9 mg/dL (1.8-2.4) AMYLASE 49 U/L (25-115) CK-MB 17.9 H ng/mL (0.5-3.2) %CKMB 2.3 % (0.0-4.0) TROPONIN I <0.05 ng/mL (0.00-1.5) TROPONIN REFERENCE RANGE:<0.1 NEGATIVE0.1-1.5 INDETERMINANT>1.5 POSITIVE THYROID STIMULATING HORMONE 3.923 H uIU/mL (0.34-3.74) . Pulse Oximetry: 04/09/2016 19:59 O2 saturation: 92%. (FIO2 - room air). Interpretation: normal. PROGRESS AND PROCEDURES Course of Care: Albuterol nebulizer treatment (1 unit dose) given. Normal Saline 1 liter IVPB given. DuoNeb nebulizer treatment (1 unit dose) given. Patient is stable. Physical exam findings are improved. Symptoms much better. Pt feels much better and wants to go home. He has home O2 with baseline SaO2 upper 80's. Patient/family counseled. Old medical records ordered. Disposition: Discharged. Condition: stable and improved. CLINICAL IMPRESSION Acute exacerbation of COPD. Essential hypertension. Acquired hypothyroidism. Influenza type B with upper respiratory infection and bronchitis. INSTRUCTIONS Do not work for three days. Do not smoke. Seek medical help to quit smoking. (Please use your inhaler every 3-4 hours for the next 24 hours, then as needed, as directed). Warnings: Further evaluation is necessary. It is very important to follow up with a physician. CONTROLLED SUBSTANCE WARNINGS. GENERAL WARNINGS: Return or contact your physician immediately if your condition worsens or changes unexpectedly, if not improving as expected, or if other problems arise. Your Current Medications: CONTINUE TAKING THE FOLLOWING MEDICATIONS: AmLODIPine Besylate Oral : Tablet 5 mg, 1 tablet daily. Antibiotic*. CeleXA Oral : 40 mg daily. HydrOXYzine HCl Oral : 25 mg daily. Levothyroxine Sodium Oral : 175 mcg daily. Losartan Potassium Oral : Tablet 25 mg, 1 tablet daily. Methocarbamol Oral. PredniSONE Oral. Soma Oral. Ventolin HFA Inhalation : 2 puffs 4x a day. ZyPREXA Oral : 7.5 mg daily. Prescription Medications: Methocarbamol 750 mg: take 1-2 orally every 6 hours as needed for muscle spasm. Dispense fifteen (15). No refill. Follow-up: Screening today revealed the patient's blood pressure to be in the hypertensive range. The patient should follow up with a primary care provider for blood pressure management. Follow-up with: Veronica Royal, Advanced Registered Nurse Practitioner, , [facility], [address] [place] [address], [phone] Follow up tomorrow. (Electronically signed by Mike Hickman DO 04/10/2016 5:49)
--- NOTE | 2016-04-09 23:47 | ED ORDER SUMMARY ---
..... Patient: JACK SINGLETON OrderSheet [facility] VisitID: [id number] [place] [address] 55y, M Registration Date/Time: 04/09/2016 ORDER SHEET Weight: 88.4 kg (stated) Allergies: Naproxen, Tegretol GENERAL ORDERS: Chest 2V (revisit, persistent cough) Urgent (20:58 04/09/2016 ABlanchette PA-C) (Ack 21:03 LAouse ER Tech1) (21:08 RFay) Metal Pattern Maker (Continuous) (:04/09/2016 PHutchinson DO) (21:23 JDeElena R.N.) UA-Culture if indicated Urgent (:04/09/2016 PHutchinson DO) (Ack 21:27 LAouse ER Tech1) (Cancelled: Unable to Collect0:10 JQuivey R.N.) Cardiac Panel Stat (21:04/09/2016 PHutchinson DO) (Ack 21:27 LAouse ER Tech1) (21:37 JDeElena R.N.) BNP Urgent (21:04/09/2016 PHutchinson DO) (Ack 21:27 LAouse ER Tech1) (21:37 JDeElena R.N.) D-Dimer Urgent (21:04/09/2016 PHutchinson DO) (Ack 21:27 LAouse ER Tech1) (21:37 JDeElena R.N.) Amylase Urgent (21:04/09/2016 PHutchinson DO) (Ack 21:27 LAouse ER Tech1) (21:37 JDeElena R.N.) PT with INR Urgent (:04/09/2016 PHutchinson DO) (Ack 21:27 LAouse ER Tech1) (21:37 JDeElena R.N.) TSH Urgent (:04/09/2016 PHutchinson DO) (Ack 21:27 LAouse ER Tech1) (21:37 JDeElena R.N.) Pulse oximeter (21:04/09/2016 PHutchinson DO) (21:23 JDeElena R.N.) EKG - ER Stat (21:08 04/09/2016 [facility]) (21:21 CHagerty ER Change Over) Vitals (21:08 04/09/2016 [facility]) (21:23 JDeElena R.N.) Blood Culture (No) (N/A) Urgent (21:15 04/09/2016 [facility]) (Ack 21:27 NHouse ER Tech1) (21:37 JDeElena R.N.) MEDICATION ORDERS: DuoNeb Neb Tx 1 unit dose (NOW) (21:08 04/09/2016 [facility]) (21:23 DanyelleElena R.N.) Albuterol Neb Tx 1 unit dose (NOW, HHN) (22:48 04/09/2016 [facility]) (Ack 22:52 CHagerty ER Change Over) (23:03 CHagerty ER Change Over) IV FLUIDS: IV NS : initial bolus 500 mL (1000 mL/hr), then 500 mL/hr for X1 (NOW) (21:07 04/09/2016 [facility]) (Ack 21:23 JDeElena R.N.) (21:37 JDeElena R.N.) ORDER SHEET NOTES: [Electronically signed by Shaq Hidalgo R.N. (00:24 04/10/2016)] [Electronically signed by Mike Hickman DO (05:49 04/10/2016)] [Electronically locked/signed by Shaq Hidalgo R.N. (00:24 04/10/2016)]
--- NOTE | 2016-04-09 23:47 | ED ORDER SUMMARY ---
..... Patient: JACK SINGLETON OrderSheet [facility] VisitID: [id number] [place] [address] 55y, M Registration Date/Time: 04/09/2016 ORDER SHEET Weight: 88.4 kg (stated) Allergies: Naproxen, Tegretol GENERAL ORDERS: Chest 2V (revisit, persistent cough) Urgent (20:58 04/09/2016 ABlanchette PA-C) (Ack 21:03 DCouse ER Tech1) (21:08 RFay) Trucksmith (Continuous) (:04/09/2016 PHutchinson DO) (21:23 JDeElena R.N.) UA-Culture if indicated Urgent (:04/09/2016 PHutchinson DO) (Ack 21:27 DCouse ER Tech1) (Cancelled: Unable to Collect0:10 JQuivey R.N.) Cardiac Panel Stat (21:04/09/2016 PHutchinson DO) (Ack 21:27 DCouse ER Tech1) (21:37 JDeElena R.N.) BNP Urgent (21:04/09/2016 PHutchinson DO) (Ack 21:27 DCouse ER Tech1) (21:37 JDeElena R.N.) D-Dimer Urgent (21:04/09/2016 PHutchinson DO) (Ack 21:27 DCouse ER Tech1) (21:37 JDeElena R.N.) Amylase Urgent (21:04/09/2016 PHutchinson DO) (Ack 21:27 DCouse ER Tech1) (21:37 JDeElena R.N.) PT with INR Urgent (:04/09/2016 PHutchinson DO) (Ack 21:27 DCouse ER Tech1) (21:37 JDeElena R.N.) TSH Urgent (:04/09/2016 PHutchinson DO) (Ack 21:27 DCouse ER Tech1) (21:37 JDeElena R.N.) Pulse oximeter (21:04/09/2016 PHutchinson DO) (21:23 JDeElena R.N.) EKG - ER Stat (21:08 04/09/2016 [facility]) (21:21 CHagerty ER Sound Engineer Audio Control) Vitals (21:08 04/09/2016 [facility]) (21:23 JDeElena R.N.) Blood Culture (No) (N/A) Urgent (21:15 04/09/2016 [facility]) (Ack 21:27 NHouse ER Tech1) (21:37 JDeElena R.N.) MEDICATION ORDERS: DuoNeb Neb Tx 1 unit dose (NOW) (21:08 04/09/2016 [facility]) (21:23 DanyelleElena R.N.) Albuterol Neb Tx 1 unit dose (NOW, HHN) (22:48 04/09/2016 [facility]) (Ack 22:52 CHagerty ER Sound Engineer Audio Control) (23:03 CHagerty ER Sound Engineer Audio Control) IV FLUIDS: IV NS : initial bolus 500 mL (1000 mL/hr), then 500 mL/hr for X1 (NOW) (21:07 04/09/2016 [facility]) (Ack 21:23 JDeElena R.N.) (21:37 JDeElena R.N.) ORDER SHEET NOTES: [Electronically signed by Shaq Hidalgo R.N. (00:24 04/10/2016)] [Electronically signed by Mike Hickman DO (05:49 04/10/2016)] [Electronically locked/signed by Shaq Hidalgo R.N. (00:24 04/10/2016)]
--- NOTE | 2016-04-10 05:49 | ED MAR SUMMARY ---
..... Medication Administration Record [facility] [address] [place] [address] Patient: JACK SINGLETON Visit ID: [id number] 55y, M Weight: 88.4 kg Height/Length: 69 in BMI: 28.8 ALLERGIES: Naproxen, Tegretol Given 20:45 04/09/2016 Shaq Hidalgo R.N. Medication Administered: DUONEB [NEB TX] (IPRATROPIUM-ALBUTEROL), Dose: 1 unit dose Nebulizer Neb TX. Medication Ordered: DuoNeb Neb Tx 1 unit dose (NOW). Start 21:37 04/09/2016 Shaq Hidalgo RFranki, Stop 00:05 04/10/2016 Reginaldo Plascencia RMarilinNMarilin Medication Administered: IV NS (SALINE), Dose: IV Fluids, Rate: 1000 mL/hr, Bolus: 500 mL over 30 minute(s), Dispensed: 1000 mL bag, Site: #1 left . Medication Ordered: IV NS : initial bolus 500 mL (1000 mL/hr), then 500 mL/hr for X1 (NOW). Given 23:02 04/09/2016 Jose Clark, ER Label Sewer Medication Administered: ALBUTEROL [NEB TX], Dose: 1 unit dose Nebulizer Neb TX. Medication Ordered: Albuterol Neb Tx 1 unit dose (NOW, N).
--- NOTE | 2016-04-10 05:49 | ED MED RECONCILIATION SUMMARY ---
Patient: JACK SINGLETON Medication Reconciliation Report [facility] VisitID: [id number] [address] [place] [address] 55y, M Registration Date/Time: 04/09/2016 Weight: 88.4 kg Height/Length: 69 in. BMI: 28.8 ALLERGIES: Naproxen, Tegretol The patient's Home Medications are listed below: CONTINUE TAKING THE FOLLOWING MEDICATIONS: AmLODIPine Besylate Oral (5 mg) 1 tablet, daily Antibiotic CeleXA Oral 40 mg, daily HydrOXYzine HCl Oral 25 mg, daily Levothyroxine Sodium Oral 175 mcg, daily Losartan Potassium Oral (25 mg) 1 tablet, daily Methocarbamol Oral PredniSONE Oral Soma Oral Ventolin HFA Inhalation 2 puffs, 4x a day ZyPREXA Oral 7.5 mg, daily The source(s) of the original Home Medication information: patient The following Medications were given to the patient in the Emergency Department: Duoneb [Neb Tx] Neb TX 1 unit dose, administered: 04/09/2016 8:45:00 PM IV NS IV Fluids bolus 500 mL over 30 minute(s), then 1000 mL/hr, administered: 04/09/2016 9:37:00 PM Albuterol [Neb Tx] Neb TX 1 unit dose, administered: 04/09/2016 11:02:00 PM The following Medications were prescribed to the patient: Methocarbamol 750 mg: take 1-2 orally every 6 hours as needed for muscle spasm. Dispense fifteen (15). No refill. -- Mike Hickman,
--- NOTE | 2016-04-10 05:49 | ED MED RECONCILIATION SUMMARY ---
Patient: JACK SINGLETON Medication Reconciliation Report [facility] VisitID: [id number] [address] [place] [address] 55y, M Registration Date/Time: 04/09/2016 Weight: 88.4 kg Height/Length: 69 in. BMI: 28.8 ALLERGIES: Naproxen, Tegretol The patient's Home Medications are listed below: CONTINUE TAKING THE FOLLOWING MEDICATIONS: AmLODIPine Besylate Oral (5 mg) 1 tablet, daily Antibiotic CeleXA Oral 40 mg, daily HydrOXYzine HCl Oral 25 mg, daily Levothyroxine Sodium Oral 175 mcg, daily Losartan Potassium Oral (25 mg) 1 tablet, daily Methocarbamol Oral PredniSONE Oral Soma Oral Ventolin HFA Inhalation 2 puffs, 4x a day ZyPREXA Oral 7.5 mg, daily The source(s) of the original Home Medication information: patient The following Medications were given to the patient in the Emergency Department: Duoneb [Neb Tx] Neb TX 1 unit dose, administered: 04/09/2016 8:45:00 PM IV NS IV Fluids bolus 500 mL over 30 minute(s), then 1000 mL/hr, administered: 04/09/2016 9:37:00 PM Albuterol [Neb Tx] Neb TX 1 unit dose, administered: 04/09/2016 11:02:00 PM The following Medications were prescribed to the patient: Methocarbamol 750 mg: take 1-2 orally every 6 hours as needed for muscle spasm. Dispense fifteen (15). No refill. -- Mike Hickman,
--- NOTE | 2016-04-10 05:49 | ED DISCHARGE INSTRUCTIONS ---
Patient: JACK SINGLETON General Instructions [facility] VisitID: [id number] [place] [address] 55y, M Registration Date/Time: 04/09/2016 Acute exacerbation of COPD. Essential hypertension. Acquired hypothyroidism. Influenza type B with upper respiratory infection and bronchitis. INSTRUCTIONS Do not work for three days. Do not smoke. Seek medical help to quit smoking. (Please use your inhaler every 3-4 hours for the next 24 hours, then as needed, as directed). Warnings: Further evaluation is necessary. It is very important to follow up with a physician. CONTROLLED SUBSTANCE WARNINGS. GENERAL WARNINGS: Return or contact your physician immediately if your condition worsens or changes unexpectedly, if not improving as expected, or if other problems arise. Your Current Medications: CONTINUE TAKING THE FOLLOWING MEDICATIONS: AmLODIPine Besylate Oral : Tablet 5 mg, 1 tablet daily. Antibiotic*. CeleXA Oral : 40 mg daily. HydrOXYzine HCl Oral : 25 mg daily. Levothyroxine Sodium Oral : 175 mcg daily. Losartan Potassium Oral : Tablet 25 mg, 1 tablet daily. Methocarbamol Oral. PredniSONE Oral. Soma Oral. Ventolin HFA Inhalation : 2 puffs 4x a day. ZyPREXA Oral : 7.5 mg daily. Prescription Medications: Methocarbamol 750 mg: take 1-2 orally every 6 hours as needed for muscle spasm. Dispense fifteen (15). No refill. Follow-up: Screening today revealed the patient's blood pressure to be in the hypertensive range. The patient should follow up with a primary care provider for blood pressure management. Follow-up with: Veronica Royal, Advanced Registered Nurse Practitioner, , [facility], [address] [place] [address], [facility] Follow up tomorrow. ADDITIONAL INFORMATION COPD Flare Both emphysema and chronic bronchitis are forms of chronic obstructive pulmonary disease (COPD). It is most often caused by many years of smoking tobacco. Many things can make your lung disease suddenly get worse. These causes include the common cold, pneumonia, acute bronchitis, missing doses of your regular breathing medicines, or being around smoke, dust, or other air pollutants. A COPD flare may last 7 to 14 days. Your doctor may prescribe medicineto relax your airways and prevent wheezing. Your doctor may also prescribe antibiotics if he or she thinks you havea bacterial infection. Prednisone can helpease inflammation in a severe attack. Home care Here are things you can do at home: Drink lots of water or other fluids (at least 10 glasses a day) during an attack. This will loosen lung secretions and make it easier to breathe. If you have heart or kidney disease, check with your doctor before you drink extra amounts of fluids. Take prescribed medicine exactly at the times advised. If you have a hand-held inhaler or aerosol breathing medicine, don't use it more than once every 4 hours, unless your doctor tells you to. If you were givenan antibiotic or prednisone, take all of the medicine even if you are feeling better after a few days. Don't smoke. Avoid being aroundthe smoke of others. If you were given an inhaler, use it exactly as directed. If you need to use it more often than prescribed, your condition may be getting worse. Call your doctor. Follow-up care Follow up with your health care provider.If you are 65 or older or have chronic asthma or COPD, you should get a single dose of the pneumococcal vaccine and aflu shot each year. You may need a second dose of the pneumococcal vaccine if you had the first dose at a younger age. Your health care provider will let you know if you need a second dose. For all other people, the usual dose for the pneumococcal vaccine is 1 or 2 shots. Yourprovider can discuss this with you. When to seek medical care Get prompt medical attention ifany of these occur: Increased wheezing or shortness of breath Need to use your inhalers more often than usual without relief Fever of 100.4F(38C) or higher, or as directed by your health care provider Coughing up lots of dark-colored or bloody sputum (mucus) Chest pain with each breath You do not start to improve within 24 hours High Blood Pressure --Established High Blood Pressure (Hypertension) is a chronic disease. The cause is unknown in most cases. It can usually be controlled with lifestyle changes and/or medicines. Symptoms of high blood pressure may include headache, dizziness, visual changes, chest pain and shortness of breath. Sometimes it causes no symptoms at all. However, even if there are no symptoms, untreated high blood pressure increases the risk of heart attack, also known as acute myocardial infarction, or AMI, and stroke. It is a serious health risk and should not be ignored. A normal blood pressure is 120/80 or less. The first (top) number is the "systolic" pressure. The second (bottom) number is the "diastolic" pressure. Hypertension exists when either the top number is 140 or higher, OR the bottom number is 90 or higher on repeated measurements. Home Care: All patients with high blood pressure should do the following to lower their pressure. If you are on medicines, then these methods may reduce or eliminate your need for medicines in the future. Begin a weight loss program if you are overweight. Reduce your salt intake. Avoid high salt foods (olives, pickles, smoked meats, salted potato chips, etc.). Do not add salt to your food at the table. Use only small amounts of salt when cooking. Begin an exercise program. Discuss with your doctor what type of exercise program would be best for you. It doesn't have to be difficult. Even brisk walking for 20 minutes three times a week is a good form of exercise. Avoid medicines which contain heart stimulants. This includes many cold and sinus decongestant pills and sprays as well as diet pills. Check the warnings about hypertension on the label. Stimulants such as amphetamine or cocaine could be lethal for someone with hypertension. Never take these. Limit your caffeine intake or switch to caffeine-free products. Stop smoking. If you are a long-time smoker, this can be hard. Enroll in a stop-smoking program to improve your chance of success. Learning how to handle stress better is an important part of any program to lower blood pressure. Learn about relaxation methods such as meditation, yoga or biofeedback. If medicines were prescribed, take them exactly as directed. Missing doses may cause your blood pressure get out of control. Consider buying an automatic blood pressure machine (available at most pharmacies). Use this to monitor your blood pressure at home and report the results to your doctor. Follow Up: Regular visits to your own physician for blood pressure checks and medicine adjustment is an important part of your care. Make a follow-up appointment as directed by our staff. Get Prompt Medical Attention if any of the following occur: Chest pain or shortness of breath Severe headache Throbbing or rushing sound in the ears Nosebleed Sudden severe abdominal pain Extreme drowsiness, confusion or fainting Dizziness or vertigo (dizziness with spinning sensation) Weakness of an arm or leg or one side of the face Difficulty with speech or vision Hypothyroidism You have been diagnosed with hypothyroidism. This means your thyroid gland is not producing enough thyroid hormone. This hormone is important to body growth and metabolism. If you don't have enough, many body processes slow down, causing mental and physical sluggishness. A variety of other symptoms may occur and vary from mild to severe. The most severe form of this illness is called myxedema. Signs Of Hyperthyroidism (too much thyroid hormone, which can be a side effect of treatment for low thyroid): Restlessness, nervousness Increased appetite with weight loss Excess sweating Palpitations or irregular heartbeat Feeling overheated Signs Of Hypothyroidism (too little thyroid hormone): Fatigue or sluggishness Difficulty concentrating or thinking clearly; forgetfulness Dry skin, hair loss Depression Unexpected weight gain Feeling cold, or cold hands and/or feet Home Care: Take your medicine exactly as directed at the same time every day. Don't take thyroid pills with soy milk since this interferes with absorption. After taking your thyroid medicine: Wait 4 hours before eating or drinking anything that contains soy. Wait 4 hours before taking iron supplements, antacids that contain either calcium or aluminum hydroxide, or calcium supplements (regular amounts of cows milk are probably okay). Do not stop treatment on your own. If you do, your symptoms will return. Eat a high-fiber, low-calorie diet to relieve constipation and maintain a healthy weight. Get regular exercise. Talk to your doctor about an exercise program that is right for you. Follow Up with your doctor or as advised by our staff. Your thyroid level will need to be monitored for the rest of your life. During your routine visits, tell your doctor about any symptoms such as the ones listed below. Get Prompt Medical Attention if any of the following occur: Extreme fatigue Puffy hands, face, or feet Chest pain or trouble breathing Palpitations or irregular heartbeat Confusion or loss of consciousness Influenza (Adult) Influenza, also called the flu, is a viral illness that affects the air passages of the lungs. It differs from the common cold. It is highly contagious. It may be spread through the air by coughing and sneezing or by direct contact (touching the sick person and then touching your own eyes, nose or mouth). Illness starts 1-3 days after exposure and lasts for 1-2 weeks. Antibiotics are usually not needed unless a complication appears (ear or sinus infection or pneumonia). Symptoms may be mild or severe and can include extreme tiredness (wanting to stay in bed all day), chills, fevers, muscle aching, soreness with eye movement, headache, and a dry, hacking cough. Home Care: Avoid exposure to cigarette smoke (yours or others). Tylenol or ibuprofen (Advil) will help fever, muscle aching, and headache. To avoid risk of liver injury, aspirin should not be used in children and teenagers under 18 with this illness. Nausea and loss of appetite are common. A light diet is recommended. Avoid dehydration by drinking 6-8 glasses of fluids per day (water, sport drinks like Gatorade, soft drinks without caffeine, juices, tea, soup, etc.). Extra fluids will also help loosen secretions in the nose and lungs. Ammg-zut-vybrltt cold medicines will not shorten the duration of the illness but may be helpful for the following symptoms: cough (Robitussin DM); sore throat (Chloraseptic lozenges or spray); nasal and sinus congestion (Actifed or Sudafed). [NOTE: Do not use decongestants if you have high blood pressure.] Stay home until your fever has been gone for at least 24 hours (without the use of fever-reducing medications such as ibuprofen). Follow Up with your doctor or as directed by our staff if you are not improving over the next week. Note: If you are age 65 or older, or if you have chronic asthma or COPD, we recommend a pneumococcal vaccinationevery five years. All adults shouldreceive a yearly influenza vaccination every . Ask your doctor about this. Get Prompt Medical Attention if any of the following occur: Cough with lots of colored sputum (mucus) or blood in your sputum Chest pain, shortness of breath, wheezing, or difficulty breathing Severe headache, face, neck or ear pain New rash Fever of 100.4F (38C) oral or higher, not better with fever medication Confusion, behavior change or seizure Severe weakness or dizziness How To Quit Smoking Smoking is one of the hardest habits to break. About half of all those who have ever smoked have been able to quit, and most of those (about 70%) who still smoke want to quit. Here are some of the best ways to stop smoking. Keep Trying: It takes most smokers about 8 tries before they are finally able to fully quit. So, the more often you try and fail, the better your chance of quitting the next time! So, don't give up! Go Cold [place]: Most ex-smokers quit cold turkey. Trying to cut back gradually doesn't seem to work as well, perhaps because it continues the smoking habit. Also, it is possible to fool yourself by inhaling more while smoking fewer cigarettes. This results in the same amount of nicotine in your body! Get Support: Support programs can make an important difference, especially for the heavy smoker. These groups offer lectures, methods to change your behavior and peer support. Call the free national Quitline for more information. 036-RCIS-PHH (583-480-5270). Low-cost or free programs are offered by many hospitals, local chapters of the [place] [employer] (991-368-2531) and the [place] [employer] (913-913-3176). Support at home is important too. Non-smokers can help by offering praise and encouragement. If the smoker fails to quit, encourage them to try again! Fgvd-Toz-Aeiojgo Medicines: For those who can't quit on their own, Nicotine Replacement Therapy (NRT) may make quitting much easier. Certain aids such as the nicotine patch, gum and lozenge are available without a prescription. However, it is best to use these under the guidance of your doctor. The skin patch provides a steady supply of nicotine to the body. Nicotine gum and lozenge gives temporary bursts of low levels of nicotine. Both methods take the edge off the craving for cigarettes. WARNING: If you feel symptoms of nicotine overdose, such as nausea, vomiting, dizziness, weakness, or fast heartbeat, stop using these and see your doctor. Prescription Medicines: After evaluating your smoking patterns and prior attempts at quitting, your doctor may offer a prescription medicine such as bupropion (Zyban, Wellbutrin), varenicline (Chantix, Champix), a niocotine inhaler or nasal spray. Each has its unique advantage and side effects which your doctor can review with you. Health Benefits Of Quitting: The benefits of quitting start right away and keep improving the longer you go without smokin minutes: blood pressure and pulse return to normal 8 hours: oxygen levels return to normal 2 days: ability to smell and taste begins to improve as damaged nerves start to regrow 2-3 weeks: circulation and lung function improves 1-9 months: decreased cough, congestion and shortness of breath; less tired 1 year: risk of heart attack decreases by half 5 years: risk of lung cancer decreases by half; risk of stroke becomes the same as a non-smoker For information about how to quit smoking, visit the following links: National Cancer [place] , Clearing the Air, Quit Smoking Today - an online booklet. http://www.smokefree.gov/pubs/clearing_the_air.pdf Smokefree.gov http://smokefree.gov/ QuitNet http://www.quitnet.com/ Methocarbamol Oral tablet What is this medicine? METHOCARBAMOL (meth oh HAKEEM ba mole) helps to relieve pain and stiffness in muscles caused by strains, sprains, or other injury to your muscles. How should I use this medicine? Take this medicine by mouth with a full glass of water. Follow the directions on the prescription label. Take your medicine at regular intervals. Do not take your medicine more often than directed. Talk to your flight data technician regarding the use of this medicine in children. Special care may be needed. What side effects may I notice from receiving this medicine? Side effects that you should report to your doctor or health career services assistant as soon as possible: allergic reactions like skin rash, itching or hives, swelling of the face, lips, or tongue blurred vision or changes in vision confusion fainting spells fever nausea or vomiting seizures Side effects that usually do not require medical attention (report to your doctor or health career services assistant if they continue or are bothersome): dizziness drowsiness headache metallic taste What may interact with this medicine? alcohol or medicines that contain alcohol cholinesterase inhibitors like neostigmine, ambenonium, and pyridostigmine bromide other medicines that cause drowsiness What if I miss a dose? If you miss a dose, take it as soon as you can. If it is almost time for your next dose, take only the next dose. Do not take double or extra doses. Where should I keep my medicine? Keep out of the reach of children. Store at room temperature between 20 and 25 degrees C (68 and 77 degrees F). Keep container tightly closed. Throw away any unused medicine after the expiration date. What should I tell my health care provider before I take this medicine? They need to know if you have any of these conditions: kidney disease seizures an unusual or allergic reaction to methocarbamol, other medicines, foods, dyes, or preservatives or trying to get breast-feeding What should I watch for while using this medicine? You may get drowsy or dizzy. Do not drive, use machinery, or do anything that needs mental alertness until you know how this medicine affects you. Do not stand or sit up quickly, especially if you are an older patient. This reduces the risk of dizzy or fainting spells. Alcohol may interfere with the effect of this medicine. Avoid alcoholic drinks. You have been given the following additional information: COPD Flare Hypertension, Established Hypothyroidism Influenza (Adult) Smoking Cessation Methocarbamol Oral tablet Do not work for three days. (Electronically signed by Mike Hickman DO 04/10/2016 5:49)
--- NOTE | 2016-04-10 05:49 | ED MAR SUMMARY ---
..... Medication Administration Record [facility] [address] [place] [address] Patient: JACK SINGLETON Visit ID: [id number] 55y, M Weight: 88.4 kg Height/Length: 69 in BMI: 28.8 ALLERGIES: Naproxen, Tegretol Given 20:45 04/09/2016 Shaq Hidalgo R.N. Medication Administered: DUONEB [NEB TX] (IPRATROPIUM-ALBUTEROL), Dose: 1 unit dose Nebulizer Neb TX. Medication Ordered: DuoNeb Neb Tx 1 unit dose (NOW). Start 21:37 04/09/2016 Shaq Hidalgo RFranki, Stop 00:05 04/10/2016 Reginaldo Plascencia RMarilinNMarilin Medication Administered: IV NS (SALINE), Dose: IV Fluids, Rate: 1000 mL/hr, Bolus: 500 mL over 30 minute(s), Dispensed: 1000 mL bag, Site: #1 left . Medication Ordered: IV NS : initial bolus 500 mL (1000 mL/hr), then 500 mL/hr for X1 (NOW). Given 23:02 04/09/2016 Jose Clark, ER Railway Equipment Operator Medication Administered: ALBUTEROL [NEB TX], Dose: 1 unit dose Nebulizer Neb TX. Medication Ordered: Albuterol Neb Tx 1 unit dose (NOW, N).
== END 2016-04-09 19:45 | disposition home or self-care (01) ==
LOC: ED SRH 19:44
DX: J44.1 Chronic obstructive pulmonary disease with (acute) exacerbation (principal); Z88.6 Allergy status to analgesic agent; I10 Essential (primary) hypertension; E03.9 Hypothyroidism, unspecified; J10.1 Influenza due to other identified influenza virus with other respiratory manifestations; I50.9 Heart failure, unspecified; F31.9 Bipolar disorder, unspecified; Z79.2 Long term (current) use of antibiotics; Z79.899 Other long term (current) drug therapy; F17.210 Nicotine dependence, cigarettes, uncomplicated
CPT/HCPCS: 90065; 90100; 90616; 90617; 91320; 91556; 92530; 92610; 92720; 93140; 94060; 95059

== ENCOUNTER 2016-04-13 21:57 | Emergency (ER) | payer OTHER ==
--- NOTE | 2016-04-14 02:29 | ED ORDER SUMMARY ---
..... Patient: JACK SINGLETON OrderSheet [facility] VisitID: [id number] [address] [place] [address] 55y, M Registration Date/Time: 04/13/2016 ORDER SHEET Weight: 86.1 kg (stated) Allergies: Naproxen, Tegretol GENERAL ORDERS: MEDICATION ORDERS: Albuterol Neb Tx 3 unit doses (HHN) (01:04/14/2016 Tiffany GARCIA) (Ack 1:16 [facility] ER Sales Team Manager) (1:44 Kiara R.N.) Prednisone PO 60 mg (NOW) (:04/14/2016 Tiffany GARCIA) (1:44 Kiara R.N.) IV FLUIDS: ORDER SHEET NOTES: [Electronically signed by Darius Rivera R.N. (02:58 04/14/2016)] [Electronically signed by Rock Elliott MD (21:50 04/16/2016)] [Electronically locked/signed by Darius Rivera R.N. (02:58 04/14/2016)]
--- NOTE | 2016-04-14 02:29 | ED NURSING NOTES ---
Clinical Report - Nurses [facility] [address] [place] [address] 04/13/2016 21:56 Patient: JACK SINGLETON TRIAGE Triage time 2315. Acuity: LEVEL 3. Chief Complaint: COUGH and SORE THROAT, known FLU EXPOSURE and WHEEZING, SINUS DRAINAGE and SINUS CONGESTION. --23:24 Darius Rivera R.N. 23:16 04/13/16. BP: 143/87. HR: 80. RR: 18. O2 saturation: 92%. Temp: 98 F. Pain level now 0/10. --23:24 Darius Rivera R.N. Weight: 86.1 kg stated. Height/Length: 69 inches Per Patient. BMI: 28.1. --23:17 Darius Rivera R.N. Medications AmLODIPine Besylate Oral (Tablet 5 mg) 1 tablet, daily. CeleXA Oral 40 mg, daily. HydrOXYzine HCl Oral 25 mg, daily. --23:20 Darius Rivera R.N. Levothyroxine Sodium Oral 175 mcg, daily. Losartan Potassium Oral (Tablet 25 mg) 1 tablet, daily. Methocarbamol Oral. PredniSONE Oral. Soma Oral. Ventolin HFA Inhalation 2 puffs, 4x a day. ZyPREXA Oral 7.5 mg, daily. --23:20 Darius Rivera R.N. Allergies Naproxen.(nausea) Tegretol. --23:20 Darius Rivera R.N. History Arrived by private vehicle. Historian: patient. Accompanied by friend. Onset was gradual. Worsened while participating in light activity and coughing. Symptoms still present (4 days). SOCIAL HX: Heavy tobacco smoker- 1 pack per day. FALL RISK ASSESSMENT: Fall risk assessment completed. No fall risk identified. NUTRITIONAL RISK ASSESSMENT: The nutritional risk assessment revealed no deficiencies. FUNCTIONAL ASSESSMENT: Functional assessment: no impairments noted. LEARNING NEEDS ASSESSMENT: The learning needs assessment revealed no barriers. SKIN INTEGRITY ASSESSMENT: Skin integrity risk assessment completed. No skin integrity risk identified. --23:24 Darius Rivera R.N. ( pt states he has positive flu B result [facility] on sunday. pt states he is just not able to breath at home.). --23:25 Darius Rivera R.N. PROBLEMS: Influenza. Chronic Back Pain. Pneumonia. Upper Extremity Pain. GI Bleeding. Heart Disease. Abscess Check. Cellulitis. Sciatica. Back Pain. Myofascial Strain. Lumbar Strain. Acute Pain. Lung Disease. Myalgias. Viral Disease. Abnormal Test. Sprain. Cholecystitis. Peptic Ulcer Disease. Congestive Heart Failure. URI. Asthma. Bronchospasm. Bronchitis. Immunizations. Stomach ulcers. Hypothyroidism. Hypertension. Bipolar Disorder. COPD - Chronic Obstructive Pulmonary Disease. Substance Abuse. --23:21 Darius Rivera R.N. Interventions ID band on patient. --23:24 Darius Rivera R.N. PHYSICAL ASSESSMENT Ambulatory to room. GENERAL / NEURO / PSYCH: Alert. Oriented X 4. Appears in no acute distress. HEENT: Pupils equal, round and reactive to light. Mucous membranes are pink. RESPIRATORY: Mild respiratory distress. CVS: Capillary refill less than 2 seconds. Pulses within normal limits. SKIN: Skin intact. Skin is warm and dry. Normal skin turgor. --23:26 Darius Rivera R.N. NURSING PROGRESS NOTES Pulse oximeter applied. Patient gowned. Head of bed elevated. Reassurance given. Patient identifiers checked. Call light placed in reach. Bed placed in lowest position. Brakes of bed on. --23:27 Darius Rivera R.N. :44 04/14/2016 Albuterol Neb TX 3 unit dose given. Given by the respiratory therapist. Allergies verified and confirmed 5 rights. --01:44 Kelvin Pinedo R.N. 01:44 04/14/2016 Prednisone PO 60 mg given. Allergies verified and confirmed 5 rights. --01:44 Kelvin Pinedo R.N. DISPOSITION / DISCHARGE Departure time: 5. Condition at departure: improved. No learning barriers present. Discharge instructions provided and reviewed with the patient. Reviewed warnings. Reviewed medication(s). Treatments reviewed. Activity restrictions reviewed. Patient verbalized understanding. Written instructions provided in [place]. The patient was discharged by the physician. He was discharged home and accompanied by broadcast supervisor. He left the Emergency Department ambulatory and via private vehicle. Braille Teacher driving. FALL RISK ASSESSMENT: Fall risk assessment completed. No fall risk identified. --02:57 Darius Rivera R.N. 02:51 04/14/16. BP: 144/80. HR: 77. RR: 18. O2 saturation: 96%. Temp: 98 F. Pain level now 0/10. --02:57 Darius Rivera R.N. Locked/Released at 04/14/2016 2:58 by Darius Rivera R.N.
--- NOTE | 2016-04-14 02:29 | ED ORDER SUMMARY ---
..... Patient: JACK SINGLETON OrderSheet [facility] VisitID: [id number] [address] [place] [address] 55y, M Registration Date/Time: 04/13/2016 ORDER SHEET Weight: 86.1 kg (stated) Allergies: Naproxen, Tegretol GENERAL ORDERS: MEDICATION ORDERS: Albuterol Neb Tx 3 unit doses (HHN) (01:04/14/2016 Tiffany GARCIA) (Ack 1:16 [facility] [employer] [facility] ER Therapy Tech) (1:44 Kiara R.N.) Prednisone PO 60 mg (NOW) (:04/14/2016 Tiffany GARCIA) (1:44 Kiara R.N.) IV FLUIDS: ORDER SHEET NOTES: [Electronically signed by Darius Rivera R.N. (02:58 04/14/2016)] [Electronically signed by Rock Elliott MD (21:50 04/16/2016)] [Electronically locked/signed by Darius Rivera R.N. (02:58 04/14/2016)]
--- NOTE | 2016-04-14 02:29 | ED NURSING NOTES ---
Clinical Report - Nurses [facility] [address] [place] [address] 04/13/2016 21:56 Patient: JACK SINGLETON TRIAGE Triage time 2315. Acuity: LEVEL 3. Chief Complaint: COUGH and SORE THROAT, known FLU EXPOSURE and WHEEZING, SINUS DRAINAGE and SINUS CONGESTION. --23:24 Darius Rivera R.N. 23:16 04/13/16. BP: 143/87. HR: 80. RR: 18. O2 saturation: 92%. Temp: 98 F. Pain level now 0/10. --23:24 Darius Rivera R.N. Weight: 86.1 kg stated. Height/Length: 69 inches Per Patient. BMI: 28.1. --23:17 Darius Rivera R.N. Medications AmLODIPine Besylate Oral (Tablet 5 mg) 1 tablet, daily. CeleXA Oral 40 mg, daily. HydrOXYzine HCl Oral 25 mg, daily. --23:20 Darius Rivera R.N. Levothyroxine Sodium Oral 175 mcg, daily. Losartan Potassium Oral (Tablet 25 mg) 1 tablet, daily. Methocarbamol Oral. PredniSONE Oral. Soma Oral. Ventolin HFA Inhalation 2 puffs, 4x a day. ZyPREXA Oral 7.5 mg, daily. --23:20 Darius Rivera R.N. Allergies Naproxen.(nausea) Tegretol. --23:20 Darius Rivera R.N. History Arrived by private vehicle. Historian: patient. Accompanied by friend. Onset was gradual. Worsened while participating in light activity and coughing. Symptoms still present (4 days). SOCIAL HX: Heavy tobacco smoker- 1 pack per day. FALL RISK ASSESSMENT: Fall risk assessment completed. No fall risk identified. NUTRITIONAL RISK ASSESSMENT: The nutritional risk assessment revealed no deficiencies. FUNCTIONAL ASSESSMENT: Functional assessment: no impairments noted. LEARNING NEEDS ASSESSMENT: The learning needs assessment revealed no barriers. SKIN INTEGRITY ASSESSMENT: Skin integrity risk assessment completed. No skin integrity risk identified. --23:24 Darius Rivera R.N. ( pt states he has positive flu B result from [facility] ed on sunday. pt states he is just not able to breath at home.). --23:25 Darius Rivera R.N. PROBLEMS: Influenza. Chronic Back Pain. Pneumonia. Upper Extremity Pain. GI Bleeding. Heart Disease. Abscess Check. Cellulitis. Sciatica. Back Pain. Myofascial Strain. Lumbar Strain. Acute Pain. Lung Disease. Myalgias. Viral Disease. Abnormal Test. Sprain. Cholecystitis. Peptic Ulcer Disease. Congestive Heart Failure. URI. Asthma. Bronchospasm. Bronchitis. Immunizations. Stomach ulcers. Hypothyroidism. Hypertension. Bipolar Disorder. COPD - Chronic Obstructive Pulmonary Disease. Substance Abuse. --23:21 Darius Rivera R.N. Interventions ID band on patient. --23:24 Darius Rivera R.N. PHYSICAL ASSESSMENT Ambulatory to room. GENERAL / NEURO / PSYCH: Alert. Oriented X 4. Appears in no acute distress. HEENT: Pupils equal, round and reactive to light. Mucous membranes are pink. RESPIRATORY: Mild respiratory distress. CVS: Capillary refill less than 2 seconds. Pulses within normal limits. SKIN: Skin intact. Skin is warm and dry. Normal skin turgor. --23:26 Darius Rivera R.N. NURSING PROGRESS NOTES Pulse oximeter applied. Patient gowned. Head of bed elevated. Reassurance given. Patient identifiers checked. Call light placed in reach. Bed placed in lowest position. Brakes of bed on. --23:27 Darius Rivera R.N. :44 04/14/2016 Albuterol Neb TX 3 unit dose given. Given by the respiratory therapist. Allergies verified and confirmed 5 rights. --01:44 Kelvin Pinedo R.N. 01:44 04/14/2016 Prednisone PO 60 mg given. Allergies verified and confirmed 5 rights. --01:44 Kelvin Pinedo R.N. DISPOSITION / DISCHARGE Departure time: 5. Condition at departure: improved. No learning barriers present. Discharge instructions provided and reviewed with the patient. Reviewed warnings. Reviewed medication(s). Treatments reviewed. Activity restrictions reviewed. Patient verbalized understanding. Written instructions provided in Chadian. The patient was discharged by the physician. He was discharged home and accompanied by rubber mold maker. He left the Emergency Department ambulatory and via private vehicle. Fashion Patternmaker driving. FALL RISK ASSESSMENT: Fall risk assessment completed. No fall risk identified. --02:57 Darius Rivera R.N. 02:51 04/14/16. BP: 144/80. HR: 77. RR: 18. O2 saturation: 96%. Temp: 98 F. Pain level now 0/10. --02:57 Darius Rivera R.N. Locked/Released at 04/14/2016 2:58 by Darius Rivera R.N.
--- NOTE | 2016-04-14 02:29 | ED CLINICAL REPORT ---
Clinical Report - Physicians/Mid Levels [facility] [address] [place] [address] 04/13/2016 21:56 Patient: JACK SINGLEOTN Time Seen: 01:05. Arrived- By private vehicle. Historian- patient. HISTORY OF PRESENT ILLNESS Chief Complaint: SOB. This started about 4 days ago; Albutertol q 2 hours 2 puffs is home treatment. Albutterol HHN has meds but no hand piece and is still present. It was gradual in onset and has been waxing/waning. The patient has had sputum production, a cough, difficulty breathing, nasal congestion and sinus pressure. He has had muscle aches. No fever, sore throat or hoarseness. Additional history - The patient has had contact with a sick individual. Recent medical care: The patient was seen recently in the emergency department. REVIEW OF SYSTEMS No nausea, vomiting, diarrhea, difficulty with urination or skin rash. No joint pain. PAST HISTORY PCP: Dr Crain Miller PROBLEMS: Influenza. Chronic Back Pain. Pneumonia. Upper Extremity Pain. GI Bleeding. Heart Disease. Abscess Check. Cellulitis. Sciatica. Back Pain. Myofascial Strain. Lumbar Strain. Acute Pain. Lung Disease. Myalgias. Viral Disease. Abnormal Test. Sprain. Cholecystitis. Peptic Ulcer Disease. Congestive Heart Failure. URI. Asthma. Bronchospasm. Bronchitis. Immunizations. Stomach ulcers. Hypothyroidism. Hypertension. Bipolar Disorder. COPD - Chronic Obstructive Pulmonary Disease. Substance Abuse.oint. SOCIAL HISTORY Current every day smoker. ADDITIONAL NOTES The nursing notes have been reviewed. PHYSICAL EXAM Vital Signs: 04/14/2016 02:51 BP: 144/80. HR: 77. RR: 18. O2 saturation: 96%. Temp: 98 F. 04/13/2016 23:44 O2 saturation: 96%. 04/13/2016 23:16 BP: 143/87. HR: 80. RR: 18. O2 saturation: 92%. Temp: 98 F. Appearance: Alert. No acute distress. Eyes: Pupils equal, round and reactive to light. Eyes normal inspection. ENT: Pharynx normal. Neck: Normal inspection. Neck supple. CVS: Heart sounds normal. Respiratory: No respiratory distress. Mildly decreased breath sounds bilaterally. Moderate bilateral wheezes diffusely. No accessory muscle use, rales or rhonchi. Abdomen: Soft and nontender. Skin: Skin warm. No rash. Extremities: Extremities exhibit normal ROM. No lower extremity edema. Neuro: No alteration in mental status. PROGRESS AND PROCEDURES Course of Care: 02:25 04/14/16. Much better feeling after albuterol HHN x 3 and prednisone. Still fairly wheezy on exam. This is a COPD exacerbation precipitated by a viral illness. No respiratory failure. We were able to provide him with another HHN hand / mouth piece as a part of his treatment. Disposition: Discharged. Condition: stable. CLINICAL IMPRESSION Acute exacerbation of COPD. INSTRUCTIONS (USE YOUR HHN WITH ALBUTEROL EVERY 3-4 HOURS USE THE PREDNISONE). Your Current Medications: CONTINUE TAKING THE FOLLOWING MEDICATIONS: AmLODIPine Besylate Oral : Tablet 5 mg, 1 tablet daily. CeleXA Oral : 40 mg daily. HydrOXYzine HCl Oral : 25 mg daily. Levothyroxine Sodium Oral : 175 mcg daily. Losartan Potassium Oral : Tablet 25 mg, 1 tablet daily. Methocarbamol Oral. PredniSONE Oral. Soma Oral. Ventolin HFA Inhalation : 2 puffs 4x a day. ZyPREXA Oral : 7.5 mg daily. Prescription Medications: Prednisone 20 mg: take 3 orally every day for 5 days. Dispense fifteen (15). No refills. Follow-up: Follow up with your doctor in three days. Understanding of the discharge instructions verbalized by patient. (Electronically signed by Rock Elliott MD 04/16/2016 21:50)
--- NOTE | 2016-04-14 02:29 | ED CLINICAL REPORT ---
Clinical Report - Physicians/Mid Levels [facility] [address] [place] [address] 04/13/2016 21:56 Patient: JACK SINGLETON Time Seen: 01:05. Arrived- By private vehicle. Historian- patient. HISTORY OF PRESENT ILLNESS Chief Complaint: SOB. This started about 4 days ago; Albutertol q 2 hours 2 puffs is home treatment. Albutterol HHN has meds but no hand piece and is still present. It was gradual in onset and has been waxing/waning. The patient has had sputum production, a cough, difficulty breathing, nasal congestion and sinus pressure. He has had muscle aches. No fever, sore throat or hoarseness. Additional history - The patient has had contact with a sick individual. Recent medical care: The patient was seen recently in the emergency department. REVIEW OF SYSTEMS No nausea, vomiting, diarrhea, difficulty with urination or skin rash. No joint pain. PAST HISTORY PCP: Dr Carin Miller PROBLEMS: Influenza. Chronic Back Pain. Pneumonia. Upper Extremity Pain. GI Bleeding. Heart Disease. Abscess Check. Cellulitis. Sciatica. Back Pain. Myofascial Strain. Lumbar Strain. Acute Pain. Lung Disease. Myalgias. Viral Disease. Abnormal Test. Sprain. Cholecystitis. Peptic Ulcer Disease. Congestive Heart Failure. URI. Asthma. Bronchospasm. Bronchitis. Immunizations. Stomach ulcers. Hypothyroidism. Hypertension. Bipolar Disorder. COPD - Chronic Obstructive Pulmonary Disease. Substance Abuse.oint. SOCIAL HISTORY Current every day smoker. ADDITIONAL NOTES The nursing notes have been reviewed. PHYSICAL EXAM Vital Signs: 04/14/2016 02:51 BP: 144/80. HR: 77. RR: 18. O2 saturation: 96%. Temp: 98 F. 04/13/2016 23:44 O2 saturation: 96%. 04/13/2016 23:16 BP: 143/87. HR: 80. RR: 18. O2 saturation: 92%. Temp: 98 F. Appearance: Alert. No acute distress. Eyes: Pupils equal, round and reactive to light. Eyes normal inspection. ENT: Pharynx normal. Neck: Normal inspection. Neck supple. CVS: Heart sounds normal. Respiratory: No respiratory distress. Mildly decreased breath sounds bilaterally. Moderate bilateral wheezes diffusely. No accessory muscle use, rales or rhonchi. Abdomen: Soft and nontender. Skin: Skin warm. No rash. Extremities: Extremities exhibit normal ROM. No lower extremity edema. Neuro: No alteration in mental status. PROGRESS AND PROCEDURES Course of Care: 02:25 04/14/16. Much better feeling after albuterol HHN x 3 and prednisone. Still fairly wheezy on exam. This is a COPD exacerbation precipitated by a viral illness. No respiratory failure. We were able to provide him with another HHN hand / mouth piece as a part of his treatment. Disposition: Discharged. Condition: stable. CLINICAL IMPRESSION Acute exacerbation of COPD. INSTRUCTIONS (USE YOUR HHN WITH ALBUTEROL EVERY 3-4 HOURS USE THE PREDNISONE). Your Current Medications: CONTINUE TAKING THE FOLLOWING MEDICATIONS: AmLODIPine Besylate Oral : Tablet 5 mg, 1 tablet daily. CeleXA Oral : 40 mg daily. HydrOXYzine HCl Oral : 25 mg daily. Levothyroxine Sodium Oral : 175 mcg daily. Losartan Potassium Oral : Tablet 25 mg, 1 tablet daily. Methocarbamol Oral. PredniSONE Oral. Soma Oral. Ventolin HFA Inhalation : 2 puffs 4x a day. ZyPREXA Oral : 7.5 mg daily. Prescription Medications: Prednisone 20 mg: take 3 orally every day for 5 days. Dispense fifteen (15). No refills. Follow-up: Follow up with your doctor in three days. Understanding of the discharge instructions verbalized by patient. (Electronically signed by Rock Elliott MD 04/16/2016 21:50)
--- NOTE | 2016-04-16 21:51 | ED MED RECONCILIATION SUMMARY ---
Patient: JACK SINGLETON Medication Reconciliation Report [facility] VisitID: [id number] [address] [place] [address] 55y, M Registration Date/Time: 04/13/2016 Weight: 86.1 kg Height/Length: 69 in. BMI: 28.1 ALLERGIES: Naproxen, Tegretol The patient's Home Medications are listed below: CONTINUE TAKING THE FOLLOWING MEDICATIONS: AmLODIPine Besylate Oral (5 mg) 1 tablet, daily CeleXA Oral 40 mg, daily HydrOXYzine HCl Oral 25 mg, daily Levothyroxine Sodium Oral 175 mcg, daily Losartan Potassium Oral (25 mg) 1 tablet, daily Methocarbamol Oral PredniSONE Oral Soma Oral Ventolin HFA Inhalation 2 puffs, 4x a day ZyPREXA Oral 7.5 mg, daily The source(s) of the original Home Medication information: Not obtained. The following Medications were given to the patient in the Emergency Department: Albuterol [Neb Tx] Neb TX 3 unit dose, administered: 04/14/2016 1:44:00 AM Prednisone [PO] PO 60 mg, administered: 04/14/2016 1:44:00 AM The following Medications were prescribed to the patient: Prednisone 20 mg: take 3 orally every day for 5 days. Dispense fifteen (15). No refills. -- Rock Elliott MD
--- NOTE | 2016-04-16 21:51 | ED MED RECONCILIATION SUMMARY ---
Patient: JACK SINGLETON Medication Reconciliation Report [facility] VisitID: [id number] [address] [place] [address] 55y, M Registration Date/Time: 04/13/2016 Weight: 86.1 kg Height/Length: 69 in. BMI: 28.1 ALLERGIES: Naproxen, Tegretol The patient's Home Medications are listed below: CONTINUE TAKING THE FOLLOWING MEDICATIONS: AmLODIPine Besylate Oral (5 mg) 1 tablet, daily CeleXA Oral 40 mg, daily HydrOXYzine HCl Oral 25 mg, daily Levothyroxine Sodium Oral 175 mcg, daily Losartan Potassium Oral (25 mg) 1 tablet, daily Methocarbamol Oral PredniSONE Oral Soma Oral Ventolin HFA Inhalation 2 puffs, 4x a day ZyPREXA Oral 7.5 mg, daily The source(s) of the original Home Medication information: Not obtained. The following Medications were given to the patient in the Emergency Department: Albuterol [Neb Tx] Neb TX 3 unit dose, administered: 04/14/2016 1:44:00 AM Prednisone [PO] PO 60 mg, administered: 04/14/2016 1:44:00 AM The following Medications were prescribed to the patient: Prednisone 20 mg: take 3 orally every day for 5 days. Dispense fifteen (15). No refills. -- Rock Elliott MD
--- NOTE | 2016-04-16 21:51 | ED MAR SUMMARY ---
..... Medication Administration Record [facility] [address] [place] [address] Patient: JACK SINGLETON Visit ID: [id number] 55y, M Weight: 86.1 kg Height/Length: 69 in BMI: 28.1 ALLERGIES: Naproxen, Tegretol Given 01:04/14/2016 Kelvin Pinedo R.N. Medication Administered: ALBUTEROL [NEB TX], Dose: 3 unit dose Neb TX. Medication Ordered: Albuterol Neb Tx 3 unit doses (HHN). Given :04/14/2016 Kelvin Pinedo R.N. Medication Administered: PREDNISONE [PO], Dose: 60 mg PO. Medication Ordered: Prednisone PO 60 mg (NOW).
--- NOTE | 2016-04-16 21:51 | ED MAR SUMMARY ---
..... Medication Administration Record [facility] [address] [place] [address] Patient: JACK SINGLETON Visit ID: [id number] 55y, M Weight: 86.1 kg Height/Length: 69 in BMI: 28.1 ALLERGIES: Naproxen, Tegretol Given 01:04/14/2016 Kelvin Pinedo R.N. Medication Administered: ALBUTEROL [NEB TX], Dose: 3 unit dose Neb TX. Medication Ordered: Albuterol Neb Tx 3 unit doses (HHN). Given :04/14/2016 Kelvin Pinedo R.N. Medication Administered: PREDNISONE [PO], Dose: 60 mg PO. Medication Ordered: Prednisone PO 60 mg (NOW).
--- NOTE | 2016-04-16 21:51 | ED DISCHARGE INSTRUCTIONS ---
Patient: JACK SINGLETON General Instructions Located Within [facility] VisitID: [id number] [place] [address] 55y, M Registration Date/Time: 04/13/2016 Acute exacerbation of COPD. INSTRUCTIONS (USE YOUR HHN WITH ALBUTEROL EVERY 3-4 HOURS USE THE PREDNISONE). Your Current Medications: CONTINUE TAKING THE FOLLOWING MEDICATIONS: AmLODIPine Besylate Oral : Tablet 5 mg, 1 tablet daily. CeleXA Oral : 40 mg daily. HydrOXYzine HCl Oral : 25 mg daily. Levothyroxine Sodium Oral : 175 mcg daily. Losartan Potassium Oral : Tablet 25 mg, 1 tablet daily. Methocarbamol Oral. PredniSONE Oral. Soma Oral. Ventolin HFA Inhalation : 2 puffs 4x a day. ZyPREXA Oral : 7.5 mg daily. Prescription Medications: Prednisone 20 mg: take 3 orally every day for 5 days. Dispense fifteen (15). No refills. Follow-up: Follow up with your doctor in three days. Understanding of the discharge instructions verbalized by patient. ADDITIONAL INFORMATION COPD Flare Both emphysema and chronic bronchitis are forms of chronic obstructive pulmonary disease (COPD). It is most often caused by many years of smoking tobacco. Many things can make your lung disease suddenly get worse. These causes include the common cold, pneumonia, acute bronchitis, missing doses of your regular breathing medicines, or being around smoke, dust, or other air pollutants. A COPD flare may last 7 to 14 days. Your doctor may prescribe medicineto relax your airways and prevent wheezing. Your doctor may also prescribe antibiotics if he or she thinks you havea bacterial infection. Prednisone can helpease inflammation in a severe attack. Home care Here are things you can do at home: Drink lots of water or other fluids (at least 10 glasses a day) during an attack. This will loosen lung secretions and make it easier to breathe. If you have heart or kidney disease, check with your doctor before you drink extra amounts of fluids. Take prescribed medicine exactly at the times advised. If you have a hand-held inhaler or aerosol breathing medicine, don't use it more than once every 4 hours, unless your doctor tells you to. If you were givenan antibiotic or prednisone, take all of the medicine even if you are feeling better after a few days. Don't smoke. Avoid being aroundthe smoke of others. If you were given an inhaler, use it exactly as directed. If you need to use it more often than prescribed, your condition may be getting worse. Call your doctor. Follow-up care Follow up with your health care provider.If you are 65 or older or have chronic asthma or COPD, you should get a single dose of the pneumococcal vaccine and aflu shot each year. You may need a second dose of the pneumococcal vaccine if you had the first dose at a younger age. Your health care provider will let you know if you need a second dose. For all other people, the usual dose for the pneumococcal vaccine is 1 or 2 shots. Yourprovider can discuss this with you. When to seek medical care Get prompt medical attention ifany of these occur: Increased wheezing or shortness of breath Need to use your inhalers more often than usual without relief Fever of 100.4F(38C) or higher, or as directed by your health care provider Coughing up lots of dark-colored or bloody sputum (mucus) Chest pain with each breath You do not start to improve within 24 hours You have been given the following additional information: COPD Flare (Electronically signed by Rock Elliott MD 04/16/2016 21:50)
== END 2016-04-14 02:45 | disposition home or self-care (01) ==
LOC: ED SRH 21:57
DX: J44.1 Chronic obstructive pulmonary disease with (acute) exacerbation (principal); J45.901 Unspecified asthma with (acute) exacerbation; I11.0 Hypertensive heart disease with heart failure; I50.9 Heart failure, unspecified; F17.200 Nicotine dependence, unspecified, uncomplicated

== ENCOUNTER 2016-04-25 18:40 | Emergency (ER) | payer OTHER ==
--- NOTE | 2016-04-25 20:05 | DIAGNOSTIC IMAGING REPORT ---
PROCEDURE: XR CHEST 2 VIEW INDICATION: FEVER, initial encounter TECHNIQUE: PA and lateral view. COMPARISON: Chest x-ray 04/09/2016 FINDINGS: Lungs are clear. Bilateral pericardial fat pads. Cardiovascular structures are normal. Stable mild chronic mid thoracic spine compression fractures IMPRESSION: 1. Negative chest.
--- NOTE | 2016-04-25 21:18 | ED CLINICAL REPORT ---
Clinical Report - Physicians/Mid Levels [facility] [address] [place] [address] 04/25/2016 18:41 Patient: JACK SINGLETON Time Seen: 1858. Arrived- By private vehicle. Historian- patient. CPT: ER phys charges level 4 (#[id number]). HISTORY OF PRESENT ILLNESS Chief Complaint: COUGH, SORE THROAT and MUSCLE ACHES. FLU", COUGH, SORE THROAT and BODY ACHES. 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 Pt states that he has been using his nebulizer more.). and is still present (worse). The illness is described as moderate. The patient has had a cough, difficulty breathing, a sore throat and muscle aches. He has had moderate amounts of yellow sputum. There has been a change from baseline. No chest discomfort or pain, fever, chills or hoarseness. No nasal congestion or discharge, sinus pressure, sinus drainage or ear pain. Additional history - The patient has had contact with a sick individual. Similar symptoms previously: None. Recent medical care: The patient was seen recently at another facility in a clinic. Seen for similar symptoms. Diagnosis: influenza. REVIEW OF SYSTEMS No headache, eye discomfort, nausea, vomiting or diarrhea. No pedal edema, calf pain, difficulty with urination, skin rash or enlarged lymph nodes. No joint pain. PAST HISTORY Hypertension. Chronic obstructive pulmonary disease. Chronic Back Pain. Pneumonia. Upper Extremity Pain. GI Bleeding. Heart Disease. Cellulitis. Sciatica. Myofascial Strain. Lumbar Strain. Lung Disease. Myalgias. Viral Disease. Abnormal Test. Sprain. Cholecystitis. Peptic Ulcer Disease. Congestive Heart Failure. URI. Asthma. Bronchospasm. Bronchitis. Hypothyroidism. Hypertension. Bipolar Disorder. COPD - Chronic Obstructive Pulmonary Disease. Substance Abuse. Medications: AmLODIPine Besylate Oral (Tablet 5 mg) 1 tablet, daily. CeleXA Oral 40 mg, daily. HydrOXYzine HCl Oral 25 mg, daily. Levothyroxine Sodium Oral 175 mcg, daily. Losartan Potassium Oral (Tablet 25 mg) 1 tablet, daily. Methocarbamol Oral. Soma Oral. Ventolin HFA Inhalation 2 puffs, 4x a day. ZyPREXA Oral 7.5 mg, daily. Allergies: Naproxen.(nausea) Tegretol. SOCIAL HISTORY Heavy tobacco smoker (cigarette)- 1-2 packs per day. No alcohol use or drug use. ADDITIONAL NOTES The nursing notes have been reviewed. PHYSICAL EXAM Vital Signs: 04/25/2016 19:03 BP: 165/87. HR: 110. RR: 20. O2 saturation: 97%. Temp: 99 F. Pain level now: 6/10. Appearance: Alert. Eyes: Eyes normal inspection. ENT: Ears normal. Nose normal. Pharynx normal. Neck: Normal inspection. Neck supple. CVS: Normal heart rate and rhythm. Heart sounds normal. Pulses normal. Respiratory: No respiratory distress. Breath sounds normal. Abdomen: Soft and nontender. Back: Normal inspection. Skin: Skin warm. Normal skin color. No rash. Extremities: Extremities exhibit normal ROM. No calf tenderness. No lower extremity edema. Neuro: Oriented X 3. No motor deficit. LABS, X-RAYS, AND EKG Chest X-ray: Normal lung markings present. No infiltrate. Views: PA and lateral. Technique: good. The X-rays were independently viewed by me and interpreted by the radiologist. Laboratory Tests: CBC w Diff: (STEVEN: 04/25/2016 20:00) ( MsgRcvd 04/25/2016 20:29) Final results Test Result Flag Units (Reference) WHITE BLOOD COUNT 9.7 K/uL (4.5-11.5) RED BLOOD COUNT 5.02 M/uL (4.50-5.90) HEMOGLOBIN 15.2 gm/dL (13.5-17.5) HEMATOCRIT 45.8 % (41.0-53.0) MEAN CELL VOLUME 91 fL (80-100) MEAN CORPUSCULAR HGB 30 pg (26-34) MEAN CORPUSCULAR HGB CONC 33 g/dL (31-37) RED CELL DISTRIBUTION WIDTH 16.5 H % (11.6-14.8) PLATELET COUNT 281 K/uL (150-400) NEUTROPHIL % 62.4 % (50-75) LYMPH % 27.8 % (25-40) MONO % 8.7 % (3-14) EOSINOPHIL % 1.0 % (0-4) BASOPHIL % 0.1 % (0-2) CMP: (STEVEN: 04/25/2016 20:00) ( MsgRcvd 04/25/2016 20:38) Final results Test Result Flag Units (Reference) GLUCOSE 134 H mg/dL (70-110) BUN 20 H mg/dL (7-18) CREATININE 1.0 mg/dL (0.6-1.3) Estimated GFR >60 mL/min Estimated GFR- >60 mL/min Note: Persistent reduction over 3 months in eGFR<60 mL/min/1.73 m2 defines CKD. Patients with eGFR values>=60 mL/min/1.73 m2 may also have CKD if evidence ofpersistent proteinuria. Additional information may be foundat www.kidney.org. SODIUM 140 mmol/L (136-145) POTASSIUM 3.6 mmol/L (3.5-5.1) CHLORIDE 104 mmol/L (98-107) CARBON DIOXIDE 27 mmol/L (21-32) CALCIUM 8.6 mg/dL (8.5-10.1) TOTAL PROTEIN 7.1 g/dL (6.4-8.2) ALBUMIN 3.7 g/dL (3.3-5.0) BILIRUBIN, TOTAL 0.5 mg/dL (0.0-1.0) ALKALINE PHOSPHATASE 68 U/L (46-116) AST (SGOT) 25 U/L (15-37) ALT (SGPT) 41 U/L (12-78) . PROGRESS AND PROCEDURES Course of Care: IV NS Albuterol HHN Zithromax 500 mg po Septra DS 1 po Prednisone 40 mg po Patient is stable. Symptoms better. Patient/family counseled. Disposition: Discharged. Condition: stable. CLINICAL IMPRESSION Acute bacterial mucopurulent bronchitis associated with chronic obstructive pulmonary disease and bronchospasm. Acute exacerbation of COPD (emphysematous) Moderate dehydration Recent influenza B infection. INSTRUCTIONS No strenuous activity. Rest. Drink plenty of fluids. Do not smoke. Warnings: Further evaluation is necessary. GENERAL WARNINGS: Return or contact your physician immediately if your condition worsens or changes unexpectedly, if not improving as expected, or if other problems arise. Your Current Medications: CONTINUE TAKING THE FOLLOWING MEDICATIONS: AmLODIPine Besylate Oral : Tablet 5 mg, 1 tablet daily. CeleXA Oral : 40 mg daily. HydrOXYzine HCl Oral : 25 mg daily. Levothyroxine Sodium Oral : 175 mcg daily. Losartan Potassium Oral : Tablet 25 mg, 1 tablet daily. Methocarbamol Oral. Soma Oral. Ventolin HFA Inhalation : 2 puffs 4x a day. ZyPREXA Oral : 7.5 mg daily. Prescription Medications: Hydrocodone/APAP 5mg/325mg: take 1 to 2 orally every 6 hours as needed for pain. Dispense fifteen (15). No refills. Albuterol HFA oral inhaler: inhale 2 puffs via spacer every 4 hours as needed for wheezing, difficulty breathing or shortness of breath, until symptoms improve. Dispense one (1) unit. No refill. Trimethoprim-Sulfamethoxazole DS: take 1 tablet orally every 12 hours for 7 days. Dispense fourteen (14). No refills. Zithromax 250 mg tablets: take 1 orally every day for 4 days. Total course 4 days. No refills. Prednisone 60 mg day 1 then taper by 10 mg a day until off. Follow-up: Follow up with your doctor Sunday in three days if not better. Understanding of the discharge instructions verbalized by patient. (Electronically signed by Judah Neff MD 04/29/2016 18:54)
--- NOTE | 2016-04-25 21:18 | ED NURSING NOTES ---
Clinical Report - Nurses [facility] [address] [place] [address] 04/25/2016 18:41 Patient: JACK SINGLETON TRIAGE Triage time 19:00 Apr 25 2016. Acuity: LEVEL 3. Chief Complaint: "FLU", COUGH, SORE THROAT and BODY ACHES. Alert. TIERNEY COMA SCORE: [place] Coma Scale: 15- eyes open spontaneously (4); best verbal response- oriented x 4 (5); best motor response- obeys commands (6). --19:14 Reginaldo Smith R.N. 19:03 04/25/16. BP: 165/87. HR: 110. RR: 20. O2 saturation: 97% on room air. Temp: 99 F. Pain level now: 6/10. Additional comments: Sore neck and chest. --19:14 Reginaldo Smith R.N. Weight: 88.4 kg stated. Height/Length: 69 inches Per Patient. BMI: 28.8. --19:11 Reginaldo Smith R.N. Medications AmLODIPine Besylate Oral (Tablet 5 mg) 1 tablet, daily. CeleXA Oral 40 mg, daily. HydrOXYzine HCl Oral 25 mg, daily. Levothyroxine Sodium Oral 175 mcg, daily. Losartan Potassium Oral (Tablet 25 mg) 1 tablet, daily. Methocarbamol Oral. Soma Oral. Ventolin HFA Inhalation 2 puffs, 4x a day. ZyPREXA Oral 7.5 mg, daily. --19:09 Reginaldo Smith R.N. Allergies Naproxen.(nausea) Tegretol. --19:09 Reginaldo Smith R.N. History Arrived by private vehicle. Historian: patient. Accompanied by family. Primary physician (Veronica Del Rosario). ( Upper Airway pain and feels congested. Pt states that he was diagnosed with Influenzea "B" two weeks ago and his flu-like symptoms have worsened, especially after his PCP gave him a flu shot one week ago. Pt states that he has been using his nebulizer more.). This started yesterday. Onset. (congestion started worsening). He has had chest congestion, fatigue and a headache. 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 PAST MEDICAL HX: Immunizations: up-to-date. SOCIAL HX: Heavy tobacco smoker (cigarette)- 1-2 packs per day. No alcohol use or drug use. No recent travel. No infectious disease exposure. No known contact with a sick individual. ABUSE ASSESSMENT: No report of abuse. FALL RISK ASSESSMENT: Fall risk assessment completed. No fall risk identified. NUTRITIONAL RISK ASSESSMENT: The nutritional risk assessment revealed no deficiencies. FUNCTIONAL ASSESSMENT: Functional assessment: no impairments noted. LEARNING NEEDS ASSESSMENT: The learning needs assessment revealed no barriers. SKIN INTEGRITY ASSESSMENT: Skin integrity risk assessment completed. No skin integrity risk identified. --19:14 Reginaldo Smith R.N. PROBLEMS: Chronic Back Pain. Pneumonia. Upper Extremity Pain. GI Bleeding. Heart Disease. Cellulitis. Sciatica. Myofascial Strain. Lumbar Strain. Lung Disease. Myalgias. Viral Disease. Abnormal Test. Sprain. Cholecystitis. Peptic Ulcer Disease. Congestive Heart Failure. URI. Asthma. Bronchospasm. Bronchitis. Hypothyroidism. Hypertension. Bipolar Disorder. COPD - Chronic Obstructive Pulmonary Disease. Substance Abuse. --19:11 Reginaldo Smith R.N. ADDITIONAL SURGERIES: Cholecystectomy. Endoscopy. Hernia Repair. --19:11 Reginaldo Smith R.N. Interventions ID and allergy band on patient. To treatment room. --19:14 Reginaldo Smith R.N. PHYSICAL ASSESSMENT Ambulatory to room. GENERAL / NEURO / PSYCH: Alert. Oriented X 4. Appears in pain. HEENT: Mucous membranes are pink. RESPIRATORY: Respirations not labored. Breath sounds within normal limits. CVS: Normal sinus rhythm noted. Pulses within normal limits. GI / : Abdomen soft and nontender and normal bowel sounds. SKIN: Skin intact. Skin is warm and dry. Normal skin turgor. --19:14 Reginaldo Smith R.N. NURSING PROGRESS NOTES Patient gowned. Reassurance given. Patient identifiers checked. Call light placed in reach. Side rails up x 1. Bed placed in lowest position. Brakes of bed on. Patient ready for evaluation- chart flagged and ED physician notified. --19:15 Reginaldo Smith R.N. 19:46. Patient walked to radiology with [facility]. --19:54 Reginaldo Plascencia R.N. 19:53. Patient walked back to ED from radiology with tech. --19:54 Reginaldo Plascencia R.N. 19:55 04/25/2016 Albuterol Neb [place] Nebulizer 2.5 mg given. Given by the respiratory therapist. Allergies verified and confirmed 5 rights. --19:55 Jose Clark, ER Lan Engineer 20:00 RT with pt for eval and breathing treatment. --20:07 Reginaldo Plascencia R.N. 20:00 04/25/2016 Site #1 started via IV in the left antecubital space with an 20g angiocath, with aseptic technique and good blood return; one attempt. Blood drawn: rainbow set and cultures x1. Labeled in the presence of the patient and sent to the lab. Saline lock flushed with 10 mL saline. --20:08 Reginaldo Plascencia R.N. 20:02 04/25/2016 Started bag #1 1000 mL IV Fluids IV NS (Saline); at 1000 mL/hr over 1 hour(s) via site #1 --20:08 Reginaldo Plascencia R.N. 20:10 04/25/16. HR: 90. O2 saturation: 95% on room air. --20:10 Reginaldo Plascencia R.N. 21:10 04/25/2016 IV Fluids IV NS Discontinued: bag #1 infused. Total amount infused: 1000 mL. IV patency established. IV site checked: no pain, redness, or swelling. IV flushed thoroughly. --23:58 Reginaldo Smith R.N. 21:38 04/25/2016 Bactrim DS (Sulfamethoxazole-TMP DS) PO Tablets 2 tab given. Allergies verified and confirmed 5 rights. --23:51 Reginaldo Smith R.N. 21:40 04/25/2016 Zithromax PO Tablets 500 mg given. Allergies verified and confirmed 5 rights. --23:52 Reginaldo Smith R.N. 21:40 04/25/2016 Prednisone PO Tablets 40 mg given. Allergies verified and confirmed 5 rights. --23:53 Reginaldo Smith R.N. 21:45 04/25/2016 Site #1 removed upon discharge. Catheter intact. Manual pressure, pressure dressing and bandaid applied. --23:59 Reginaldo Smith R.N. DISPOSITION / DISCHARGE 21:35 04/25/16. BP: 160/92. HR: 88. RR: 16. O2 saturation: 95% on room air. Temp: 98.4 F. Pain level now: 05/12. Additional comments: Chest. --23:54 Reginaldo Smith R.N. Departure time: 2144. --23:55 Reginaldo Smith R.N. 21:45. Condition at departure: improved. No learning barriers present. Discharge instructions provided and reviewed with the patient. Reviewed medication(s) dosing information (prescription given to pt). Reviewed referral to family practice. Patient verbalized understanding. Written instructions provided in Swedish. The patient was discharged by the physician. He was discharged home and accompanied by banking and finance instructor. He left the Emergency Department ambulatory and via private vehicle. Ceramic Designer driving. --23:56 Reginaldo Smith R.N. Locked/Released at 04/25/2016 23:59 by Reginaldo Smith R.N.
--- NOTE | 2016-04-25 21:18 | ED NURSING NOTES ---
Clinical Report - Nurses [facility] [address] [place] [address] 04/25/2016 18:41 Patient: JACK SINGLETON TRIAGE Triage time 19:00 Apr 25 2016. Acuity: LEVEL 3. Chief Complaint: "FLU", COUGH, SORE THROAT and BODY ACHES. Alert. TIERNEY COMA SCORE: [place] Coma Scale: 15- eyes open spontaneously (4); best verbal response- oriented x 4 (5); best motor response- obeys commands (6). --19:14 Reginaldo Smith R.N. 19:03 04/25/16. BP: 165/87. HR: 110. RR: 20. O2 saturation: 97% on room air. Temp: 99 F. Pain level now: 6/10. Additional comments: Sore neck and chest. --19:14 Reginaldo Smith R.N. Weight: 88.4 kg stated. Height/Length: 69 inches Per Patient. BMI: 28.8. --19:11 Reginaldo Smith R.N. Medications AmLODIPine Besylate Oral (Tablet 5 mg) 1 tablet, daily. CeleXA Oral 40 mg, daily. HydrOXYzine HCl Oral 25 mg, daily. Levothyroxine Sodium Oral 175 mcg, daily. Losartan Potassium Oral (Tablet 25 mg) 1 tablet, daily. Methocarbamol Oral. Soma Oral. Ventolin HFA Inhalation 2 puffs, 4x a day. ZyPREXA Oral 7.5 mg, daily. --19:09 Reginaldo Smith R.N. Allergies Naproxen.(nausea) Tegretol. --19:09 Reginaldo Smith R.N. History Arrived by private vehicle. Historian: patient. Accompanied by family. Primary physician (Veronica Del Rosario). ( Upper Airway pain and feels congested. Pt states that he was diagnosed with Influenzea "B" two weeks ago and his flu-like symptoms have worsened, especially after his PCP gave him a flu shot one week ago. Pt states that he has been using his nebulizer more.). This started yesterday. Onset. (congestion started worsening). He has had chest congestion, fatigue and a headache. 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 PAST MEDICAL HX: Immunizations: up-to-date. SOCIAL HX: Heavy tobacco smoker (cigarette)- 1-2 packs per day. No alcohol use or drug use. No recent travel. No infectious disease exposure. No known contact with a sick individual. ABUSE ASSESSMENT: No report of abuse. FALL RISK ASSESSMENT: Fall risk assessment completed. No fall risk identified. NUTRITIONAL RISK ASSESSMENT: The nutritional risk assessment revealed no deficiencies. FUNCTIONAL ASSESSMENT: Functional assessment: no impairments noted. LEARNING NEEDS ASSESSMENT: The learning needs assessment revealed no barriers. SKIN INTEGRITY ASSESSMENT: Skin integrity risk assessment completed. No skin integrity risk identified. --19:14 Reginaldo Smith R.N. PROBLEMS: Chronic Back Pain. Pneumonia. Upper Extremity Pain. GI Bleeding. Heart Disease. Cellulitis. Sciatica. Myofascial Strain. Lumbar Strain. Lung Disease. Myalgias. Viral Disease. Abnormal Test. Sprain. Cholecystitis. Peptic Ulcer Disease. Congestive Heart Failure. URI. Asthma. Bronchospasm. Bronchitis. Hypothyroidism. Hypertension. Bipolar Disorder. COPD - Chronic Obstructive Pulmonary Disease. Substance Abuse. --19:11 Reginaldo Smith R.N. ADDITIONAL SURGERIES: Cholecystectomy. Endoscopy. Hernia Repair. --19:11 Reginaldo Smith R.N. Interventions ID and allergy band on patient. To treatment room. --19:14 Reginaldo Smith R.N. PHYSICAL ASSESSMENT Ambulatory to room. GENERAL / NEURO / PSYCH: Alert. Oriented X 4. Appears in pain. HEENT: Mucous membranes are pink. RESPIRATORY: Respirations not labored. Breath sounds within normal limits. CVS: Normal sinus rhythm noted. Pulses within normal limits. GI / : Abdomen soft and nontender and normal bowel sounds. SKIN: Skin intact. Skin is warm and dry. Normal skin turgor. --19:14 Reginaldo Smith R.N. NURSING PROGRESS NOTES Patient gowned. Reassurance given. Patient identifiers checked. Call light placed in reach. Side rails up x 1. Bed placed in lowest position. Brakes of bed on. Patient ready for evaluation- chart flagged and ED physician notified. --19:15 Reginaldo Smith R.N. 19:46. Patient walked to radiology with [facility]. --19:54 Reginaldo Plascencia R.N. 19:53. Patient walked back to ED from radiology with tech. --19:54 Reginaldo Plascencia R.N. 19:55 04/25/2016 Albuterol Neb TX Nebulizer 2.5 mg given. Given by the respiratory therapist. Allergies verified and confirmed 5 rights. --19:55 Jose Clark, ER Wireless Manager 20:00 RT with pt for eval and breathing treatment. --20:07 Reginaldo Plascencia R.N. 20:00 04/25/2016 Site #1 started via IV in the left antecubital space with an 20g angiocath, with aseptic technique and good blood return; one attempt. Blood drawn: rainbow set and cultures x1. Labeled in the presence of the patient and sent to the lab. Saline lock flushed with 10 mL saline. --20:08 Reginaldo Plascencia R.N. 20:02 04/25/2016 Started bag #1 1000 mL IV Fluids IV NS (Saline); at 1000 mL/hr over 1 hour(s) via site #1 --20:08 Reginaldo Plascencia R.N. 20:10 04/25/16. HR: 90. O2 saturation: 95% on room air. --20:10 Reginaldo Plascencia R.N. 21:10 04/25/2016 IV Fluids IV NS Discontinued: bag #1 infused. Total amount infused: 1000 mL. IV patency established. IV site checked: no pain, redness, or swelling. IV flushed thoroughly. --23:58 Reginaldo Smith R.N. 21:38 04/25/2016 Bactrim DS (Sulfamethoxazole-TMP DS) PO Tablets 2 tab given. Allergies verified and confirmed 5 rights. --23:51 Reginaldo Smith R.N. 21:40 04/25/2016 Zithromax PO Tablets 500 mg given. Allergies verified and confirmed 5 rights. --23:52 Reginaldo Smith R.N. 21:40 04/25/2016 Prednisone PO Tablets 40 mg given. Allergies verified and confirmed 5 rights. --23:53 Reginaldo Smith R.N. 21:45 04/25/2016 Site #1 removed upon discharge. Catheter intact. Manual pressure, pressure dressing and bandaid applied. --23:59 Reginaldo Smith R.N. DISPOSITION / DISCHARGE 21:35 04/25/16. BP: 160/92. HR: 88. RR: 16. O2 saturation: 95% on room air. Temp: 98.4 F. Pain level now: 05/12. Additional comments: Chest. --23:54 Reginaldo Smith R.N. Departure time: 2144. --23:55 Reginaldo Smith R.N. 21:45. Condition at departure: improved. No learning barriers present. Discharge instructions provided and reviewed with the patient. Reviewed medication(s) dosing information (prescription given to pt). Reviewed referral to family practice. Patient verbalized understanding. Written instructions provided in [place]. The patient was discharged by the physician. He was discharged home and accompanied by scientific illustrator. He left the Emergency Department ambulatory and via private vehicle. Pharmaceutical Analyst driving. --23:56 Reginaldo Smith R.N. Locked/Released at 04/25/2016 23:59 by Reginaldo Smith R.N.
--- NOTE | 2016-04-25 21:18 | ED ORDER SUMMARY ---
..... Patient: JACK SINGLETON OrderSheet [facility] VisitID: [id number] [address] [place] [address] 55y, M Registration Date/Time: 04/25/2016 ORDER SHEET Weight: 88.4 kg (stated) Allergies: Naproxen, Tegretol GENERAL ORDERS: Blood Culture (No) (N/A) Urgent (19:43 04/25/2016 Maite GARCIA) (Ack 19:49 LMuller) (20:07 JQuivey R.N.) Chest 2V Urgent (:04/25/2016 Maite GARCIA) (Ack 19:49 LMuller) (19:55 Krystal) CBC w Diff Urgent (:04/25/2016 Maite GARCIA) (Ack 19:49 LMuller) (20:07 JQuivey R.N.) CMP Urgent (:04/25/2016 Maite GARCIA) (Ack 19:49 LMuller) (20:07 JQuivey R.N.) Pulse oximeter (:44 04/25/2016 Maite GARCIA) (Ack 19:49 LMuller) (20:07 JQuivey R.N.) MEDICATION ORDERS: Albuterol Neb Tx 2.5 mg (HHN) (:04/25/2016 Maite GARCIA) (19:55 Titi ER Pressure Test Operator) Bactrim DS PO (Tablet 800-160 mg) 2 tabs (NOW) (:04/25/2016 Maite GARCIA) (23:51 Eva R.N.) Zithromax PO 500 mg (NOW) (:04/25/2016 Maite GARCIA) (23:52 Eva R.N.) Prednisone PO 40 mg (NOW) (:04/25/2016 Maite GARCIA) (23:53 Eva R.N.) IV FLUIDS: IV NS : initial bolus 1000 mL (1000 mL/hr), then none - for X1 (NOW); Routine (:04/25/2016 Maite GARCIA) (Ack 19:51 JQuivejuan R.N.) (20:08 Lizeth R.Jami.) ORDER SHEET NOTES: [Electronically signed by Reginaldo Smith R.N. (23:59 04/25/2016)] [Electronically signed by Judah Neff MD (18:54 04/29/2016)] [Electronically locked/signed by Reginaldo Smith R.N. (23:59 04/25/2016)]
--- NOTE | 2016-04-25 21:18 | ED ORDER SUMMARY ---
..... Patient: JACK SINGLETON OrderSheet [facility] VisitID: [id number] [address] [place] [address] 55y, M Registration Date/Time: 04/25/2016 ORDER SHEET Weight: 88.4 kg (stated) Allergies: Naproxen, Tegretol GENERAL ORDERS: Blood Culture (No) (N/A) Urgent (19:43 04/25/2016 Maite GARCIA) (Ack 19:49 LMuller) (20:07 JQuivey R.N.) Chest 2V Urgent (:04/25/2016 Maite GARCIA) (Ack 19:49 LMuller) (19:55 Krystal) CBC w Diff Urgent (:04/25/2016 Maite GARCIA) (Ack 19:49 LMuller) (20:07 JQuivey R.N.) CMP Urgent (:04/25/2016 Maite GARCIA) (Ack 19:49 LMuller) (20:07 JQuivey R.N.) Pulse oximeter (:44 04/25/2016 Maite GARCIA) (Ack 19:49 LMuller) (20:07 JQuivey R.N.) MEDICATION ORDERS: Albuterol Neb Tx 2.5 mg (HHN) (:04/25/2016 Maite GARCIA) (19:55 Titi ER Pipe And Tank Fabricator) Bactrim DS PO (Tablet 800-160 mg) 2 tabs (NOW) (:04/25/2016 Maite GARCIA) (23:51 Eva R.N.) Zithromax PO 500 mg (NOW) (:04/25/2016 Maite GARCIA) (23:52 Eva R.N.) Prednisone PO 40 mg (NOW) (:04/25/2016 Maite GARCIA) (23:53 Eva R.N.) IV FLUIDS: IV NS : initial bolus 1000 mL (1000 mL/hr), then none - for X1 (NOW); Routine (:04/25/2016 Maite GARCIA) (Ack 19:51 JQuivejuan R.N.) (20:08 Lizeth R.Jami.) ORDER SHEET NOTES: [Electronically signed by Reginaldo Smith R.N. (23:59 04/25/2016)] [Electronically signed by Judah Neff MD (18:54 04/29/2016)] [Electronically locked/signed by Reginaldo Smith R.N. (23:59 04/25/2016)]
--- NOTE | 2016-04-29 18:54 | ED DISCHARGE INSTRUCTIONS ---
Patient: JACK SINGLETON General Instructions [facility] VisitID: [id number] [place] [address] 55y, M Registration Date/Time: 04/25/2016 Acute exacerbation of COPD (emphysematous) Moderate dehydration Recent influenza B infection. INSTRUCTIONS No strenuous activity. Rest. Drink plenty of fluids. Do not smoke. Warnings: Further evaluation is necessary. GENERAL WARNINGS: Return or contact your physician immediately if your condition worsens or changes unexpectedly, if not improving as expected, or if other problems arise. Your Current Medications: CONTINUE TAKING THE FOLLOWING MEDICATIONS: AmLODIPine Besylate Oral : Tablet 5 mg, 1 tablet daily. CeleXA Oral : 40 mg daily. HydrOXYzine HCl Oral : 25 mg daily. Levothyroxine Sodium Oral : 175 mcg daily. Losartan Potassium Oral : Tablet 25 mg, 1 tablet daily. Methocarbamol Oral. Soma Oral. Ventolin HFA Inhalation : 2 puffs 4x a day. ZyPREXA Oral : 7.5 mg daily. Prescription Medications: Hydrocodone/APAP 5mg/325mg: take 1 to 2 orally every 6 hours as needed for pain. Dispense fifteen (15). No refills. Albuterol HFA oral inhaler: inhale 2 puffs via spacer every 4 hours as needed for wheezing, difficulty breathing or shortness of breath, until symptoms improve. Dispense one (1) unit. No refill. Trimethoprim-Sulfamethoxazole DS: take 1 tablet orally every 12 hours for 7 days. Dispense fourteen (14). No refills. Zithromax 250 mg tablets: take 1 orally every day for 4 days. Total course 4 days. No refills. Prednisone 60 mg day 1 then taper by 10 mg a day until off. Follow-up: Follow up with your doctor Sunday in three days if not better. Understanding of the discharge instructions verbalized by patient. ADDITIONAL INFORMATION Bronchitis (Adult: Abx Tx) BRONCHITIS is an infection of the air passages (bronchial tubes). It often occurs during the common cold. Symptoms include cough with mucus (phlegm) and low-grade fever. Bronchitis usually lasts 7-14 days. Mild cases can be treated with simple home remedies. More severe infection is treated with an antibiotic. Home Care: If symptoms are severe, rest at home for the first 2-3 days. When you resume activity, don't let yourself get too tired. Do not smoke. Avoid being exposed to the smoke of others. You may use acetaminophen (Tylenol) or ibuprofen (Motrin, Advil) to control fever or pain, unless another medicine was prescribed for this. [NOTE: If you have chronic liver or kidney disease or ever had a stomach ulcer or GI bleeding, talk with your doctor before using these medicines.] Your appetite may be poor, so a light diet is fine. Avoid dehydration by drinking 6-8 glasses of fluids per day (water, soft, drinks, juices, tea, soup, etc.). Extra fluids will help loosen secretions in the lungs. Hrhk-uqh-gyumbqu cough medicines that containdextromethorphan(such as Robitussin DM) and decongestants (Actifed or Sudafed) may help relieve cough and congestion. [NOTE: Do not use decongestants if you have high blood pressure.] Finish all antibiotic medicine, even if you are feeling better after only a few days. Follow Up with your doctor or as directed if you dont start to feel better after three days. [NOTE: If you are age 65 or older, or if you have chronic asthma or COPD, we recommend a PNEUMOCOCCAL VACCINATION every five years and a yearly INFLUENZAVACCINATION (FLU-SHOT) every . Ask your doctor about this. If you had an X-ray, a radiologist will review it. You will be notified of any new findings that may affect your care.] Get Prompt Medical Attention if any of the following occur: Fever over 100.4F (38.0C) for more than three days Trouble breathing, wheezing or pain with breathing Coughing up blood or increased amounts of colored sputum Weakness, drowsiness, headache, facial pain, ear pain or a stiff neck COPD Flare Both emphysema and chronic bronchitis are forms of chronic obstructive pulmonary disease (COPD). It is most often caused by many years of smoking tobacco. Many things can make your lung disease suddenly get worse. These causes include the common cold, pneumonia, acute bronchitis, missing doses of your regular breathing medicines, or being around smoke, dust, or other air pollutants. A COPD flare may last 7 to 14 days. Your doctor may prescribe medicineto relax your airways and prevent wheezing. Your doctor may also prescribe antibiotics if he or she thinks you havea bacterial infection. Prednisone can helpease inflammation in a severe attack. Home care Here are things you can do at home: Drink lots of water or other fluids (at least 10 glasses a day) during an attack. This will loosen lung secretions and make it easier to breathe. If you have heart or kidney disease, check with your doctor before you drink extra amounts of fluids. Take prescribed medicine exactly at the times advised. If you have a hand-held inhaler or aerosol breathing medicine, don't use it more than once every 4 hours, unless your doctor tells you to. If you were givenan antibiotic or prednisone, take all of the medicine even if you are feeling better after a few days. Don't smoke. Avoid being aroundthe smoke of others. If you were given an inhaler, use it exactly as directed. If you need to use it more often than prescribed, your condition may be getting worse. Call your doctor. Follow-up care Follow up with your health care provider.If you are 65 or older or have chronic asthma or COPD, you should get a single dose of the pneumococcal vaccine and aflu shot each year. You may need a second dose of the pneumococcal vaccine if you had the first dose at a younger age. Your health care provider will let you know if you need a second dose. For all other people, the usual dose for the pneumococcal vaccine is 1 or 2 shots. Yourprovider can discuss this with you. When to seek medical care Get prompt medical attention ifany of these occur: Increased wheezing or shortness of breath Need to use your inhalers more often than usual without relief Fever of 100.4F(38C) or higher, or as directed by your health care provider Coughing up lots of dark-colored or bloody sputum (mucus) Chest pain with each breath You do not start to improve within 24 hours Dehydration (Adult) Dehydration occurs when your body loses too much fluid. This may be the result of vomiting a lot or from diarrhea,sweating a lot, or a high fever. It may also happen if you dont drink enough fluid when youre sick. Misuse of diuretics (water pills) can also be a cause. Symptoms include thirst and feeling dizzy, weak, fatigued, or very drowsy. The diet described below is usually enough to treat most cases. Sometimes you may needmedicine. Home Care Follow these guidelines for home care: Drink at least 12 8-ounce glasses of fluid every day to overcome the dehydration. Fluid may include water; orange juice; lemonade; apple, grape, and cranberry juice; clear fruit drinks; electrolyte replacement and sports drinks; and teas and coffee without caffeine. If you have been diagnosed with a kidney disease, ask your doctor how much and what types of fluids you should drink to prevent dehydration. If you have kidney disease, drinking too much fluid can cause it build up in the your body and be dangerous to your health. If you have fever, muscle aching, or headache from a viral syndrome, you may useacetaminophen or ibuprofen, unless another medicine was prescribed for this.If you have chronic liver or kidney disease or ever had a stomach ulcer or GI bleeding, talk with your doctor before using these medicines. Don't take aspirin if you are younger than 18 and are ill with a fever.Aspirin raises the chance forsevere liver injury. Follow-up care Follow up with your health care provider if you don't get better in the next 24 to 48 hours. When to seek medical care Get prompt medical attention if any of theseoccur: Continued vomiting (cant keep liquids down) Frequent diarrhea (more than 5 times a day); blood (red or black color) or mucus in diarrhea Blood in vomit or stool Swollen abdomen or increasing abdominal pain Weakness, dizziness, or fainting Unusually drowsy or confused Reduced urine output or extreme thirst Fever of 100.4 F (38 C) oral or higher that does not get better with fever medication Albuterol Sulfate Pressurized inhalation, suspension What is this medicine? ALBUTEROL (al BYOO ter ole) is a bronchodilator. It helps open up the airways in your lungs to make it easier to breathe. This medicine is used to treat and to prevent bronchospasm. How should I use this medicine? This medicine is for inhalation through the mouth. Follow the directions on your prescription label. Take your medicine at regular intervals. Do not use more often than directed. Make sure that you are using your inhaler correctly. Ask you doctor or health care provider if you have any questions. Talk to your non categorical preschool teacher regarding the use of this medicine in children. Special care may be needed. What side effects may I notice from receiving this medicine? Side effects that you should report to your doctor or health caregiver services home as soon as possible: allergic reactions like skin rash, itching or hives, swelling of the face, lips, or tongue breathing problems chest pain feeling faint or lightheaded, falls high blood pressure irregular heartbeat fever muscle cramps or weakness pain, tingling, numbness in the hands or feet vomiting Side effects that usually do not require medical attention (report to your doctor or health caregiver services home if they continue or are bothersome): cough difficulty sleeping headache nervousness or trembling stomach upset stuffy or runny nose throat irritation unusual taste What may interact with this medicine? anti-infectives like chloroquine and pentamidine caffeine cisapride diuretics medicines for colds medicines for depression or for emotional or psychotic conditions medicines for weight loss including some herbal products methadone some antibiotics like clarithromycin, erythromycin, levofloxacin, and linezolid some heart medicines steroid hormones like dexamethasone, cortisone, hydrocortisone theophylline thyroid hormones What if I miss a dose? If you miss a dose, use it as soon as you can. If it is almost time for your next dose, use only that dose. Do not use double or extra doses. Where should I keep my medicine? Keep out of the reach of children. Store at room temperature between 15 and 30 degrees C (59 and 86 degrees F). The contents are under pressure and may burst when exposed to heat or flame. Do not freeze. This medicine does not work as well if it is too cold. Throw away any unused medicine after the expiration date. Inhalers need to be thrown away after the labeled number of puffs have been used or by the expiration date; whichever comes first. Ventolin HFA should be thrown away 12 months after removing from foil pouch. Check the instructions that come with your medicine. What should I tell my health care provider before I take this medicine? They need to know if you have any of the following conditions: diabetes heart disease or irregular heartbeat high blood pressure pheochromocytoma seizures thyroid disease an unusual or allergic reaction to albuterol, levalbuterol, sulfites, other medicines, foods, dyes, or preservatives or trying to get breast-feeding What should I watch for while using this medicine? Tell your doctor or health caregiver services home if your symptoms do not improve. Do not use extra albuterol. If your asthma or bronchitis gets worse while you are using this medicine, call your doctor right away. If your mouth gets dry try chewing sugarless gum or sucking hard candy. Drink water as directed. Azithromycin Oral tablet What is this medicine? AZITHROMYCIN (julia galvez) is a macrolide antibiotic. It is used to treat or prevent certain kinds of bacterial infections. It will not work for colds, flu, or other viral infections. How should I use this medicine? Take this medicine by mouth with a full glass of water. Follow the directions on the prescription label. The tablets can be taken with food or on an empty stomach. If the medicine upsets your stomach, take it with food. Take your medicine at regular intervals. Do not take your medicine more often than directed. Take all of your medicine as directed even if you think your are better. Do not skip doses or stop your medicine early. Talk to your non categorical preschool teacher regarding the use of this medicine in children. Special care may be needed. What side effects may I notice from receiving this medicine? Side effects that you should report to your doctor or health caregiver services home as soon as possible: allergic reactions like skin rash, itching or hives, swelling of the face, lips, or tongue confusion, nightmares or hallucinations dark urine difficulty breathing hearing loss irregular heartbeat or chest pain pain or difficulty passing urine redness, blistering, peeling or loosening of the skin, including inside the mouth white patches or sores in the mouth yellowing of the eyes or skin Side effects that usually do not require medical attention (report to your doctor or health caregiver services home if they continue or are bothersome): diarrhea dizziness, drowsiness headache stomach upset or vomiting tooth discoloration vaginal irritation What may interact with this medicine? Do not take this medicine with any of the following medications: lincomycin This medicine may also interact with the following medications: amiodarone antacids cyclosporine digoxin magnesium nelfinavir phenytoin warfarin What if I miss a dose? If you miss a dose, take it as soon as you can. If it is almost time for your next dose, take only that dose. Do not take double or extra doses. Where should I keep my medicine? Keep out of the reach of children. Store at room temperature between 15 and 30 degrees C (59 and 86 degrees F). Throw away any unused medicine after the expiration date. What should I tell my health care provider before I take this medicine? They need to know if you have any of these conditions: kidney disease liver disease irregular heartbeat or heart disease an unusual or allergic reaction to azithromycin, erythromycin, other macrolide antibiotics, foods, dyes, or preservatives or trying to get breast-feeding What should I watch for while using this medicine? Tell your doctor or health caregiver services home if your symptoms do not improve. Do not treat diarrhea with over the counter products. Contact your doctor if you have diarrhea that lasts more than 2 days or if it is severe and watery. This medicine can make you more sensitive to the sun. Keep out of the sun. If you cannot avoid being in the sun, wear protective clothing and use sunscreen. Do not use sun lamps or tanning beds/booths. You have been given the following additional information: Bronchitis, Antiobiotic Treatment (Adult) COPD Flare Dehydration (Adult) Albuterol Sulfate Pressurized inhalation, suspension Azithromycin Oral tablet No strenuous activity. Rest. (Electronically signed by Judah Neff MD 04/29/2016 18:54)
--- NOTE | 2016-04-29 18:55 | ED MED RECONCILIATION SUMMARY ---
Patient: JACK SINGLETON Medication Reconciliation Report [facility] VisitID: [id number] [address] [place] [address] 55y, M Registration Date/Time: 04/25/2016 Weight: 88.4 kg Height/Length: 69 in. BMI: 28.8 ALLERGIES: Naproxen, Tegretol The patient's Home Medications are listed below: CONTINUE TAKING THE FOLLOWING MEDICATIONS: AmLODIPine Besylate Oral (5 mg) 1 tablet, daily CeleXA Oral 40 mg, daily HydrOXYzine HCl Oral 25 mg, daily Levothyroxine Sodium Oral 175 mcg, daily Losartan Potassium Oral (25 mg) 1 tablet, daily Methocarbamol Oral Soma Oral Ventolin HFA Inhalation 2 puffs, 4x a day ZyPREXA Oral 7.5 mg, daily The source(s) of the original Home Medication information: Not obtained. The following Medications were given to the patient in the Emergency Department: Albuterol [Neb Tx] Neb TX 2.5 mg, administered: 04/25/2016 7:55:00 PM IV NS IV Fluids bolus 0, then 1000 mL/hr, administered: 04/25/2016 8:02:00 PM Bactrim DS [PO] PO 2 tab, administered: 04/25/2016 9:38:00 PM Zithromax [PO] PO 500 mg, administered: 04/25/2016 9:40:00 PM Prednisone [PO] PO 40 mg, administered: 04/25/2016 9:40:00 PM The following Medications were prescribed to the patient: Hydrocodone/APAP 5mg/325mg: take 1 to 2 orally every 6 hours as needed for pain. Dispense fifteen (15). No refills. -- Judah Neff MD Prednisone 60 mg day 1 then taper by 10 mg a day until off. -- Judah Neff MD Albuterol HFA oral inhaler: inhale 2 puffs via spacer every 4 hours as needed for wheezing, difficulty breathing or shortness of breath, until symptoms improve. Dispense one (1) unit. No refill. -- Judah Neff MD Trimethoprim-Sulfamethoxazole DS: take 1 tablet orally every 12 hours for 7 days. Dispense fourteen (14). No refills. -- Judah Neff MD Zithromax 250 mg tablets: take 1 orally every day for 4 days. Total course 4 days. No refills. -- Judah Neff MD
--- NOTE | 2016-04-29 18:55 | ED MAR SUMMARY ---
..... Medication Administration Record [facility] [address] [place] [address] Patient: JACK SINGLETON Visit ID: [id number] 55y, M Weight: 88.4 kg Height/Length: 69 in BMI: 28.8 ALLERGIES: Naproxen, Tegretol Given 19:55 04/25/2016 Jose Clark, ER Industrial Relations Director Medication Administered: ALBUTEROL [NEB TX], Dose: 2.5 mg Nebulizer Neb TX. Medication Ordered: Albuterol Neb Tx 2.5 mg (N). Start 20:02 04/25/2016 Reginaldo Plascencia R.N., Stop 21:10 04/25/2016 Reginaldo Smith R.N. Medication Administered: IV NS (SALINE), Dose: IV Fluids over 1 hour(s), Rate: 1000 mL/hr, Dispensed: 1000 mL bag, Site: #1 left . Medication Ordered: IV NS : initial bolus 1000 mL (1000 mL/hr), then none - for X1 (NOW); Routine. Given 21:38 04/25/2016 Reginaldo Smith R.N. Medication Administered: BACTRIM DS [PO] (SULFAMETHOXAZOLE-TMP DS), Dose: 2 tab Tablets PO. Medication Ordered: Bactrim DS PO (Tablet 800-160 mg) 2 tabs (NOW). Given 21:40 04/25/2016 Reginaldo Smith R.N. Medication Administered: ZITHROMAX [PO], Dose: 500 mg Tablets PO. Medication Ordered: Zithromax PO 500 mg (NOW). Given 21:40 04/25/2016 Reginaldo Smith R.N. Medication Administered: PREDNISONE [PO], Dose: 40 mg Tablets PO. Medication Ordered: Prednisone PO 40 mg (NOW).
--- NOTE | 2016-04-29 18:55 | ED MED RECONCILIATION SUMMARY ---
Patient: JACK SINGLETON Medication Reconciliation Report [facility] VisitID: [id number] [address] [place] [address] 55y, M Registration Date/Time: 04/25/2016 Weight: 88.4 kg Height/Length: 69 in. BMI: 28.8 ALLERGIES: Naproxen, Tegretol The patient's Home Medications are listed below: CONTINUE TAKING THE FOLLOWING MEDICATIONS: AmLODIPine Besylate Oral (5 mg) 1 tablet, daily CeleXA Oral 40 mg, daily HydrOXYzine HCl Oral 25 mg, daily Levothyroxine Sodium Oral 175 mcg, daily Losartan Potassium Oral (25 mg) 1 tablet, daily Methocarbamol Oral Soma Oral Ventolin HFA Inhalation 2 puffs, 4x a day ZyPREXA Oral 7.5 mg, daily The source(s) of the original Home Medication information: Not obtained. The following Medications were given to the patient in the Emergency Department: Albuterol [Neb Tx] Neb TX 2.5 mg, administered: 04/25/2016 7:55:00 PM IV NS IV Fluids bolus 0, then 1000 mL/hr, administered: 04/25/2016 8:02:00 PM Bactrim DS [PO] PO 2 tab, administered: 04/25/2016 9:38:00 PM Zithromax [PO] PO 500 mg, administered: 04/25/2016 9:40:00 PM Prednisone [PO] PO 40 mg, administered: 04/25/2016 9:40:00 PM The following Medications were prescribed to the patient: Hydrocodone/APAP 5mg/325mg: take 1 to 2 orally every 6 hours as needed for pain. Dispense fifteen (15). No refills. -- Judah Neff MD Prednisone 60 mg day 1 then taper by 10 mg a day until off. -- Judah Neff MD Albuterol HFA oral inhaler: inhale 2 puffs via spacer every 4 hours as needed for wheezing, difficulty breathing or shortness of breath, until symptoms improve. Dispense one (1) unit. No refill. -- Judah Neff MD Trimethoprim-Sulfamethoxazole DS: take 1 tablet orally every 12 hours for 7 days. Dispense fourteen (14). No refills. -- Judah Neff MD Zithromax 250 mg tablets: take 1 orally every day for 4 days. Total course 4 days. No refills. -- Judah Neff MD
--- NOTE | 2016-04-29 18:55 | ED MAR SUMMARY ---
..... Medication Administration Record [facility] [address] [place] [address] Patient: JACK SINGLETON Visit ID: [id number] 55y, M Weight: 88.4 kg Height/Length: 69 in BMI: 28.8 ALLERGIES: Naproxen, Tegretol Given 19:55 04/25/2016 Jose Clark, ER Corporate Meeting Planner Medication Administered: ALBUTEROL [NEB TX], Dose: 2.5 mg Nebulizer Neb TX. Medication Ordered: Albuterol Neb Tx 2.5 mg (N). Start 20:02 04/25/2016 Reginaldo Plascencia R.N., Stop 21:10 04/25/2016 Reginaldo Smith R.N. Medication Administered: IV NS (SALINE), Dose: IV Fluids over 1 hour(s), Rate: 1000 mL/hr, Dispensed: 1000 mL bag, Site: #1 left . Medication Ordered: IV NS : initial bolus 1000 mL (1000 mL/hr), then none - for X1 (NOW); Routine. Given 21:38 04/25/2016 Reginaldo Smith R.N. Medication Administered: BACTRIM DS [PO] (SULFAMETHOXAZOLE-TMP DS), Dose: 2 tab Tablets PO. Medication Ordered: Bactrim DS PO (Tablet 800-160 mg) 2 tabs (NOW). Given 21:40 04/25/2016 Reginaldo Smith R.N. Medication Administered: ZITHROMAX [PO], Dose: 500 mg Tablets PO. Medication Ordered: Zithromax PO 500 mg (NOW). Given 21:40 04/25/2016 Reginaldo Smith R.N. Medication Administered: PREDNISONE [PO], Dose: 40 mg Tablets PO. Medication Ordered: Prednisone PO 40 mg (NOW).
== END 2016-04-25 21:45 | disposition home or self-care (01) ==
LOC: ED SRH 18:40
DX: J44.0 Chronic obstructive pulmonary disease with (acute) lower respiratory infection (principal); J44.1 Chronic obstructive pulmonary disease with (acute) exacerbation; E86.0 Dehydration; J10.1 Influenza due to other identified influenza virus with other respiratory manifestations; I11.0 Hypertensive heart disease with heart failure; I50.9 Heart failure, unspecified; J45.909 Unspecified asthma, uncomplicated; F31.9 Bipolar disorder, unspecified; E03.9 Hypothyroidism, unspecified; F17.210 Nicotine dependence, cigarettes, uncomplicated
CPT/HCPCS: 90065; 90100; 95059

== ENCOUNTER 2016-05-20 21:02 | Emergency (ER) | payer OTHER ==
--- NOTE | 2016-05-20 21:48 | ED CLINICAL REPORT ---
Clinical Report - Physicians/Mid Levels [facility] [address] [place] [place] [address] 05/20/2016 21:02 Patient: JACK SINGLETON Time Seen: 21:32. Arrived- By private vehicle. Historian- patient. HISTORY OF PRESENT ILLNESS Chief Complaint: BACK PAIN and CHRONIC BACK PAIN. Onset was today and it is still present. It was gradual in onset and has been waxing/waning. Modifying factors- worsened by walking, rotation of the body, bending over or lifting. Relieved by remaining still. It is described as being moderate in degree and in the area of the left lower lumbar spine and radiating to the left thigh (not past knee). The quality is noted to be "pain" and similar to prior episodes. No bladder dysfunction, bowel dysfunction, sensory loss or motor loss. Additional history - Patient reports left lower back and left leg pain that started shortly after working on cars. Patient notes an injury but denies injury to the head or neck. Mechanism of injury- he was lifting, turning and bending. Occurred at home. No other injury. Similar symptoms previously: Many times. Recent medical care: The patient was seen recently in a clinic. Seen for similar symptoms. ( saw Veronica Del Rosario at [facility] REVIEW OF SYSTEMS No fever, chills, difficulty with urination, urinary frequency or hematuria. No headache, sore throat, difficulty breathing, chest pain or abdominal pain. No nausea, vomiting, diarrhea, black stools or bloody stools. All systems otherwise negative, except as recorded above. PAST HISTORY Hypertension. Chronic obstructive pulmonary disease. Chronic Back Pain. Pneumonia. Upper Extremity Pain. GI Bleeding. Heart Disease. Cellulitis. Sciatica. Myofascial Strain. Lumbar Strain. Lung Disease. Myalgias. Viral Disease. Abnormal Test. Sprain. Cholecystitis. Peptic Ulcer Disease. Congestive Heart Failure. URI. Asthma. Bronchospasm. Bronchitis. Hypothyroidism. Hypertension. Bipolar Disorder. COPD - Chronic Obstructive Pulmonary Disease. Substance Abuse. SURGERIES: Cholecystectomy. Endoscopy. Hernia Repair Hernia Repair. Medications: Arnuity 200mcg, 2x a day (inhaled powder). AmLODIPine Besylate Oral (Tablet 5 mg) 1 tablet, daily. CeleXA Oral 40 mg, daily. HydrOXYzine HCl Oral 25 mg, daily. Levothyroxine Sodium Oral 175 mcg, daily. Losartan Potassium Oral (Tablet 25 mg) 1 tablet, daily. Methocarbamol Oral. Ventolin HFA Inhalation 2 puffs, 4x a day. ZyPREXA Oral 7.5 mg, daily. Allergies: Naproxen.(nausea) Tegretol. SOCIAL HISTORY Smoker- current status unknown. No alcohol use or drug use. ADDITIONAL NOTES The nursing notes have been reviewed. PHYSICAL EXAM Vital Signs: 05/20/2016 21:19 BP: 171/92. HR: 102. RR: 17. O2 saturation: 97%. Temp: 98.6 F. Pain level now: 8. Appearance: Alert. Patient in mild distress. HEENT: Normal external inspection. Eyes: No scleral icterus or pale conjunctivae. ENT: Pharynx normal. No tonsillar exudate. Neck: Normal inspection. Neck nontender. Painless ROM. CVS: Heart sounds normal. Pulses normal. Respiratory: No respiratory distress. Breath sounds normal. Abdomen: No visible injury. Soft and nontender. No mass. Back: Normal inspection. Moderate soft tissue tenderness in the left lower lumbar area. No vertebral point tenderness. Skin: Skin warm and dry. Normal skin color. No rash. Normal skin turgor. Extremities: Extremities exhibit normal ROM. No lower extremity edema. Extremities nontender. No calf tenderness. Neuro: Oriented X 3. Mood/affect normal. No motor deficit. No sensory deficit. Straight leg raising: negative on the right and negative on the left. Reflexes normal. Reflex exam: right patellar 2+, left patellar 2+, right Achilles 1+ and left Achilles 1+. PROGRESS AND PROCEDURES Course of Care: Copy of Pain Care Plan given Pt with acute exacerbation of chronic back pain after lifting / bending when working on his car. There is nothing new or different about his pain today. No signs of cord compression and no radicular pain below the knee and neg SLR. No clinical indication of spinal / epidural infectious process / discitis. Patient/family counseled. Old ED records reviewed. Patient has had multiple ED visits. Disposition: Discharged. Condition: stable and improved. CLINICAL IMPRESSION Acute lumbar strain (acute exacerbation of chronic pain). Essential hypertension. INSTRUCTIONS Apply ice. Do not work for two days. Warnings: CONTROLLED SUBSTANCE WARNINGS. GENERAL WARNINGS: Return or contact your physician immediately if your condition worsens or changes unexpectedly, if not improving as expected, or if other problems arise. Your Current Medications: CONTINUE TAKING THE FOLLOWING MEDICATIONS: AmLODIPine Besylate Oral : Tablet 5 mg, 1 tablet daily. Arnuity* : 200mcg 2x a day, inhaled powder. CeleXA Oral : 40 mg daily. HydrOXYzine HCl Oral : 25 mg daily. Levothyroxine Sodium Oral : 175 mcg daily. Losartan Potassium Oral : Tablet 25 mg, 1 tablet daily. Methocarbamol Oral. Ventolin HFA Inhalation : 2 puffs 4x a day. ZyPREXA Oral : 7.5 mg daily. Prescription Medications: Hydrocodone/APAP 5mg / 325mg: take 1-2 orally every 8 hours as needed for pain. Dispense ten (10). No refill. Flexeril 10 mg: Take 1 orally every 8 hours as needed for muscle spasm. Dispense twenty (20). No refills. Substitution is permissible. OTC Medications: Acetaminophen (available over the counter): take according to label instructions. Follow-up: Screening today revealed the patient's blood pressure to be in the hypertensive range. The patient should follow up with a primary care provider for blood pressure management. Follow-up with: Veronica Royal, Advanced Registered Nurse Practitioner, , [facility], [address] [place] [address] Follow up in two days. (Electronically signed by Mike Hickman DO 05/21/2016 2:16)
--- NOTE | 2016-05-20 21:48 | ED CLINICAL REPORT ---
Clinical Report - Physicians/Mid Levels [facility] [address] [place] [place] [address] 05/20/2016 21:02 Patient: JACK SINGLETON Time Seen: 21:32. Arrived- By private vehicle. Historian- patient. HISTORY OF PRESENT ILLNESS Chief Complaint: BACK PAIN and CHRONIC BACK PAIN. Onset was today and it is still present. It was gradual in onset and has been waxing/waning. Modifying factors- worsened by walking, rotation of the body, bending over or lifting. Relieved by remaining still. It is described as being moderate in degree and in the area of the left lower lumbar spine and radiating to the left thigh (not past knee). The quality is noted to be "pain" and similar to prior episodes. No bladder dysfunction, bowel dysfunction, sensory loss or motor loss. Additional history - Patient reports left lower back and left leg pain that started shortly after working on cars. Patient notes an injury but denies injury to the head or neck. Mechanism of injury- he was lifting, turning and bending. Occurred at home. No other injury. Similar symptoms previously: Many times. Recent medical care: The patient was seen recently in a clinic. Seen for similar symptoms. ( saw Veronica Del Rosario at [facility]). REVIEW OF SYSTEMS No fever, chills, difficulty with urination, urinary frequency or hematuria. No headache, sore throat, difficulty breathing, chest pain or abdominal pain. No nausea, vomiting, diarrhea, black stools or bloody stools. All systems otherwise negative, except as recorded above. PAST HISTORY Hypertension. Chronic obstructive pulmonary disease. Chronic Back Pain. Pneumonia. Upper Extremity Pain. GI Bleeding. Heart Disease. Cellulitis. Sciatica. Myofascial Strain. Lumbar Strain. Lung Disease. Myalgias. Viral Disease. Abnormal Test. Sprain. Cholecystitis. Peptic Ulcer Disease. Congestive Heart Failure. URI. Asthma. Bronchospasm. Bronchitis. Hypothyroidism. Hypertension. Bipolar Disorder. COPD - Chronic Obstructive Pulmonary Disease. Substance Abuse. SURGERIES: Cholecystectomy. Endoscopy. Hernia Repair Hernia Repair. Medications: Arnuity 200mcg, 2x a day (inhaled powder). AmLODIPine Besylate Oral (Tablet 5 mg) 1 tablet, daily. CeleXA Oral 40 mg, daily. HydrOXYzine HCl Oral 25 mg, daily. Levothyroxine Sodium Oral 175 mcg, daily. Losartan Potassium Oral (Tablet 25 mg) 1 tablet, daily. Methocarbamol Oral. Ventolin HFA Inhalation 2 puffs, 4x a day. ZyPREXA Oral 7.5 mg, daily. Allergies: Naproxen.(nausea) Tegretol. SOCIAL HISTORY Smoker- current status unknown. No alcohol use or drug use. ADDITIONAL NOTES The nursing notes have been reviewed. PHYSICAL EXAM Vital Signs: 05/20/2016 21:19 BP: 171/92. HR: 102. RR: 17. O2 saturation: 97%. Temp: 98.6 F. Pain level now: 8. Appearance: Alert. Patient in mild distress. HEENT: Normal external inspection. Eyes: No scleral icterus or pale conjunctivae. ENT: Pharynx normal. No tonsillar exudate. Neck: Normal inspection. Neck nontender. Painless ROM. CVS: Heart sounds normal. Pulses normal. Respiratory: No respiratory distress. Breath sounds normal. Abdomen: No visible injury. Soft and nontender. No mass. Back: Normal inspection. Moderate soft tissue tenderness in the left lower lumbar area. No vertebral point tenderness. Skin: Skin warm and dry. Normal skin color. No rash. Normal skin turgor. Extremities: Extremities exhibit normal ROM. No lower extremity edema. Extremities nontender. No calf tenderness. Neuro: Oriented X 3. Mood/affect normal. No motor deficit. No sensory deficit. Straight leg raising: negative on the right and negative on the left. Reflexes normal. Reflex exam: right patellar 2+, left patellar 2+, right Achilles 1+ and left Achilles 1+. PROGRESS AND PROCEDURES Course of Care: Copy of Pain Care Plan given Pt with acute exacerbation of chronic back pain after lifting / bending when working on his car. There is nothing new or different about his pain today. No signs of cord compression and no radicular pain below the knee and neg SLR. No clinical indication of spinal / epidural infectious process / discitis. Patient/family counseled. Old ED records reviewed. Patient has had multiple ED visits. Disposition: Discharged. Condition: stable and improved. CLINICAL IMPRESSION Acute lumbar strain (acute exacerbation of chronic pain). Essential hypertension. INSTRUCTIONS Apply ice. Do not work for two days. Warnings: CONTROLLED SUBSTANCE WARNINGS. GENERAL WARNINGS: Return or contact your physician immediately if your condition worsens or changes unexpectedly, if not improving as expected, or if other problems arise. Your Current Medications: CONTINUE TAKING THE FOLLOWING MEDICATIONS: AmLODIPine Besylate Oral : Tablet 5 mg, 1 tablet daily. Arnuity* : 200mcg 2x a day, inhaled powder. CeleXA Oral : 40 mg daily. HydrOXYzine HCl Oral : 25 mg daily. Levothyroxine Sodium Oral : 175 mcg daily. Losartan Potassium Oral : Tablet 25 mg, 1 tablet daily. Methocarbamol Oral. Ventolin HFA Inhalation : 2 puffs 4x a day. ZyPREXA Oral : 7.5 mg daily. Prescription Medications: Hydrocodone/APAP 5mg / 325mg: take 1-2 orally every 8 hours as needed for pain. Dispense ten (10). No refill. Flexeril 10 mg: Take 1 orally every 8 hours as needed for muscle spasm. Dispense twenty (20). No refills. Substitution is permissible. OTC Medications: Acetaminophen (available over the counter): take according to label instructions. Follow-up: Screening today revealed the patient's blood pressure to be in the hypertensive range. The patient should follow up with a primary care provider for blood pressure management. Follow-up with: Veronica Royal, Advanced Registered Nurse Practitioner, , [facility], [address] [place] [address] Follow up in two days. (Electronically signed by Mike Hickman DO 05/21/2016 2:16)
--- NOTE | 2016-05-20 21:49 | ED NURSING NOTES ---
Clinical Report - Nurses [facility] [address] [place] [address] 05/20/2016 21:02 Patient: JACK SINGLETON TRIAGE Triage time 21:19. Acuity: LEVEL 4. Chief Complaint: BACK PAIN. Alert. SEPSIS SCREEN: Sepsis Screen. Negative (no infection suspected/documented). --21:27 Reginaldo Plascencia R.N. 21:19 05/20/16. BP: 171/92. HR: 102. RR: 17. O2 saturation: 97%. Temp: 98.6 F (oral). Pain level now: 11/09. --21:27 Reginaldo Plascencia R.N. Weight: 89.3 kg stated. Height/Length: 69 inches Per Patient. BMI: 29.1. --21:20 Reginaldo Plascencia R.N. Medications AmLODIPine Besylate Oral (Tablet 5 mg) 1 tablet, daily. CeleXA Oral 40 mg, daily. HydrOXYzine HCl Oral 25 mg, daily. Levothyroxine Sodium Oral 175 mcg, daily. Losartan Potassium Oral (Tablet 25 mg) 1 tablet, daily. Methocarbamol Oral. Ventolin HFA Inhalation 2 puffs, 4x a day. ZyPREXA Oral 7.5 mg, daily. --21:23 Reginaldo Plascencia R.N. Arnuity 200mcg, 2x a day (inhaled powder). --21:24 Reginaldo Plascencia R.N. Medication/allergy information source: the patient. --21:27 Reginaldo Plascencia R.N. Allergies Naproxen.(nausea) Tegretol. --21:23 Reginaldo Plascencia R.N. History Arrived by private vehicle. Historian: patient. Unaccompanied. Primary physician (Carin). Onset. (30 minutes ago). ( Patient reports left lower back and left leg pain that started shortly after working on cars). History of recent trauma- (States he was working on cars today). Occurred at home. 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 PAST MEDICAL HX: Tetanus status: up-to-date. Immunizations: up-to-date. SOCIAL HX: Current every day heavy tobacco smoker- 1-2 packs per day. No alcohol use or drug use. No infectious disease exposure. ABUSE ASSESSMENT: No report of abuse. FALL RISK ASSESSMENT: Fall risk assessment completed. No fall risk identified. NUTRITIONAL RISK ASSESSMENT: The nutritional risk assessment revealed no deficiencies. FUNCTIONAL ASSESSMENT: Functional assessment: no impairments noted. LEARNING NEEDS ASSESSMENT: The learning needs assessment revealed no barriers. SKIN INTEGRITY ASSESSMENT: Skin integrity risk assessment completed. No skin integrity risk identified. --21:27 Reginaldo Plascencia R.N. PROBLEMS: Chronic Back Pain. Pneumonia. Heart Disease. Cellulitis. Sciatica. Back Pain. Lung Disease. Cholecystitis. Congestive Heart Failure. URI. Asthma. Bronchospasm. Bronchitis. Hypothyroidism. Hypertension. Bipolar Disorder. COPD - Chronic Obstructive Pulmonary Disease. Substance Abuse. --21:25 Reginaldo Plascencia R.N. Interventions ID band on patient. To treatment room. --21:27 Reginaldo Plascencia R.N. PHYSICAL ASSESSMENT 21:27. Ambulatory to room. Patient gowned. GENERAL / NEURO / PSYCH: Alert. Oriented X 4. RESPIRATORY: Respirations not labored. EXTREMITIES: Sensation intact in extremities. ROM of extremities within normal limits. --21:27 Reginaldo Plascencia R.N. NURSING PROGRESS NOTES 21:28 Patient seated in chair. Two patient identifiers checked. Call light placed in reach. Bed placed in lowest position. Brakes of bed on. --21:28 Reginaldo Plascencia R.N. 21:51. The patient is calm and resting quietly. GENERAL / NEURO / PSYCH: Alert. Oriented X 4. No sensory deficit. RESPIRATORY: No respiratory distress. SKIN: Skin is warm and dry. Skin color within normal limits. --21:56 Reginaldo Plascencia R.N. DISPOSITION / DISCHARGE Departure time: 21:55. Condition at departure: stable. No learning barriers present. Discharge instructions provided and reviewed with the patient. Reviewed medication(s) side effects, precautions, dosing and course information. Prescription(s) given to the patient. Patient verbalized understanding. Written instructions provided in French. The patient was discharged home and unaccompanied at time of discharge. He left the Emergency Department ambulatory and via private vehicle. Patient driving. FALL RISK ASSESSMENT: Fall risk assessment completed. No fall risk identified. --21:55 Reginaldo Plascencia R.N. 21:52 05/20/16. BP: 121/76. HR: 96. RR: 17. O2 saturation: 95% on room air. Pain level now: 10/09. --21:55 Reginaldo Plascencia R.N. Locked/Released at 05/20/2016 22:07 by Reginaldo Plascencia R.N.
--- NOTE | 2016-05-20 21:49 | ED NURSING NOTES ---
Clinical Report - Nurses [facility] [address] [place] [address] 05/20/2016 21:02 Patient: JACK SINGLETON TRIAGE Triage time 21:19. Acuity: LEVEL 4. Chief Complaint: BACK PAIN. Alert. SEPSIS SCREEN: Sepsis Screen. Negative (no infection suspected/documented). --21:27 Reginaldo Plascencia R.N. 21:19 05/20/16. BP: 171/92. HR: 102. RR: 17. O2 saturation: 97%. Temp: 98.6 F (oral). Pain level now: 11/09. --21:27 Reginaldo Plascencia R.N. Weight: 89.3 kg stated. Height/Length: 69 inches Per Patient. BMI: 29.1. --21:20 Reginaldo Plascencia R.N. Medications AmLODIPine Besylate Oral (Tablet 5 mg) 1 tablet, daily. CeleXA Oral 40 mg, daily. HydrOXYzine HCl Oral 25 mg, daily. Levothyroxine Sodium Oral 175 mcg, daily. Losartan Potassium Oral (Tablet 25 mg) 1 tablet, daily. Methocarbamol Oral. Ventolin HFA Inhalation 2 puffs, 4x a day. ZyPREXA Oral 7.5 mg, daily. --21:23 Reginaldo Plascencia R.N. Arnuity 200mcg, 2x a day (inhaled powder). --21:24 Reginaldo Plascencia R.N. Medication/allergy information source: the patient. --21:27 Reginaldo Plascencia R.N. Allergies Naproxen.(nausea) Tegretol. --21:23 Reginaldo Plascencia R.N. History Arrived by private vehicle. Historian: patient. Unaccompanied. Primary physician (Carin). Onset. (30 minutes ago). ( Patient reports left lower back and left leg pain that started shortly after working on cars). History of recent trauma- (States he was working on cars today). Occurred at home. 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 PAST MEDICAL HX: Tetanus status: up-to-date. Immunizations: up-to-date. SOCIAL HX: Current every day heavy tobacco smoker- 1-2 packs per day. No alcohol use or drug use. No infectious disease exposure. ABUSE ASSESSMENT: No report of abuse. FALL RISK ASSESSMENT: Fall risk assessment completed. No fall risk identified. NUTRITIONAL RISK ASSESSMENT: The nutritional risk assessment revealed no deficiencies. FUNCTIONAL ASSESSMENT: Functional assessment: no impairments noted. LEARNING NEEDS ASSESSMENT: The learning needs assessment revealed no barriers. SKIN INTEGRITY ASSESSMENT: Skin integrity risk assessment completed. No skin integrity risk identified. --21:27 Reginaldo Plascencia R.N. PROBLEMS: Chronic Back Pain. Pneumonia. Heart Disease. Cellulitis. Sciatica. Back Pain. Lung Disease. Cholecystitis. Congestive Heart Failure. URI. Asthma. Bronchospasm. Bronchitis. Hypothyroidism. Hypertension. Bipolar Disorder. COPD - Chronic Obstructive Pulmonary Disease. Substance Abuse. --21:25 Reginaldo Plascencia R.N. Interventions ID band on patient. To treatment room. --21:27 Reginaldo Plascencia R.N. PHYSICAL ASSESSMENT 21:27. Ambulatory to room. Patient gowned. GENERAL / NEURO / PSYCH: Alert. Oriented X 4. RESPIRATORY: Respirations not labored. EXTREMITIES: Sensation intact in extremities. ROM of extremities within normal limits. --21:27 Reginaldo Plascencia R.N. NURSING PROGRESS NOTES 21:28 Patient seated in chair. Two patient identifiers checked. Call light placed in reach. Bed placed in lowest position. Brakes of bed on. --21:28 Reginaldo Plascencia R.N. 21:51. The patient is calm and resting quietly. GENERAL / NEURO / PSYCH: Alert. Oriented X 4. No sensory deficit. RESPIRATORY: No respiratory distress. SKIN: Skin is warm and dry. Skin color within normal limits. --21:56 Reginaldo Plascencia R.N. DISPOSITION / DISCHARGE Departure time: 21:55. Condition at departure: stable. No learning barriers present. Discharge instructions provided and reviewed with the patient. Reviewed medication(s) side effects, precautions, dosing and course information. Prescription(s) given to the patient. Patient verbalized understanding. Written instructions provided in Korean. The patient was discharged home and unaccompanied at time of discharge. He left the Emergency Department ambulatory and via private vehicle. Patient driving. FALL RISK ASSESSMENT: Fall risk assessment completed. No fall risk identified. --21:55 Reginaldo Plascencia R.N. 21:52 05/20/16. BP: 121/76. HR: 96. RR: 17. O2 saturation: 95% on room air. Pain level now: 10/09. --21:55 Reginaldo Plascencia R.N. Locked/Released at 05/20/2016 22:07 by Reginaldo Plascencia R.N.
--- NOTE | 2016-05-21 02:16 | ED MAR SUMMARY ---
..... Medication Administration Record [facility] [address] [place] [address] Patient: JACK SINGLETON Visit ID: [id number], M Weight: 89.3 kg Height/Length: 69 in BMI: 29.1 ALLERGIES: Naproxen, Tegretol
--- NOTE | 2016-05-21 02:16 | ED DISCHARGE INSTRUCTIONS ---
Patient: JACK SINGLETON General Instructions [facility] VisitID: [id number] [address] [place] [address] 56y, M Registration Date/Time: 05/20/2016 Acute lumbar strain (acute exacerbation of chronic pain). Essential hypertension. INSTRUCTIONS Apply ice. Do not work for two days. Warnings: CONTROLLED SUBSTANCE WARNINGS. GENERAL WARNINGS: Return or contact your physician immediately if your condition worsens or changes unexpectedly, if not improving as expected, or if other problems arise. Your Current Medications: CONTINUE TAKING THE FOLLOWING MEDICATIONS: AmLODIPine Besylate Oral : Tablet 5 mg, 1 tablet daily. Arnuity* : 200mcg 2x a day, inhaled powder. CeleXA Oral : 40 mg daily. HydrOXYzine HCl Oral : 25 mg daily. Levothyroxine Sodium Oral : 175 mcg daily. Losartan Potassium Oral : Tablet 25 mg, 1 tablet daily. Methocarbamol Oral. Ventolin HFA Inhalation : 2 puffs 4x a day. ZyPREXA Oral : 7.5 mg daily. Prescription Medications: Hydrocodone/APAP 5mg / 325mg: take 1-2 orally every 8 hours as needed for pain. Dispense ten (10). No refill. Flexeril 10 mg: Take 1 orally every 8 hours as needed for muscle spasm. Dispense twenty (20). No refills. Substitution is permissible. OTC Medications: Acetaminophen (available over the counter): take according to label instructions. Follow-up: Screening today revealed the patient's blood pressure to be in the hypertensive range. The patient should follow up with a primary care provider for blood pressure management. Follow-up with: Veronica Royal, Advanced Registered Nurse Practitioner, , [facility], [address] [place] [address] Follow up in two days. ADDITIONAL INFORMATION Back Pain [Acute Or Chronic] Back pain is usually caused by an injury to the muscles or ligaments of the spine. Sometimes the disks that separate each bone in the spine may bulge and cause pain by pressing on a nearby nerve. Back pain may also appear after a sudden twisting/bending force (such as in a car accident), after a simple awkward movement, or lifting something heavy with poor body positioning. In either case, muscle spasm is often present and adds to the pain. Acute back pain usually gets better in one to two weeks. Back pain related to disk disease, arthritis in the spinal joints or spinal stenosis (narrowing of the spinal canal) can become chronic and last for months or years. Unless you had a physical injury (for example, a car accident or fall) X-rays are usually not ordered for the initial evaluation of back pain. If pain continues and does not respond to medical treatment, x-rays and other tests may be performed at a later time. Home Care: You may need to stay in bed the first few days. But, as soon as possible, begin sitting or walking to avoid problems with prolonged bed rest (muscle weakness, worsening back stiffness and pain, blood clots in the legs). When in bed, try to find a position of comfort. A firm mattress is best. Try lying flat on your back with pillows under your knees. You can also try lying on your side with your knees bent up towards your chest and a pillow between your knees. Avoid prolonged sitting. This puts more stress on the lower back than standing or walking. During the first two days after injury, apply an ICE PACK to the painful area for 20 minutes every 2-4 hours. This will reduce swelling and pain. HEAT (hot shower, hot bath or heating pad) works well for muscle spasm. You can start with ice, then switch to heat after two days. Some patients feel best alternating ice and heat treatments. Use the one method that feels the best to you. You may use acetaminophen (Tylenol) or ibuprofen (Motrin, Advil) to control pain, unless another pain medicine was prescribed. [NOTE: If you have chronic liver or kidney disease or ever had a stomach ulcer or GI bleeding, talk with your doctor before using these medicines.] Be aware of safe lifting methods and do not lift anything over 15 pounds until all the pain is gone. Follow Up with your doctor or this facility if your symptoms do not start to improve after one week. Physical therapy may be needed. [NOTE: If X-rays were taken, they will be reviewed by a radiologist. You will be notified of any new findings that may affect your care.] Get Prompt Medical Attention if any of the following occur: Pain becomes worse or spreads to your legs Weakness or numbness in one or both legs Loss of bowel or bladder control Numbness in the groin or genital area Hydrocodone Bitartrate, Acetaminophen Oral tablet What is this medicine? ACETAMINOPHEN; HYDROCODONE (a set a JEREMIAH radha fen; cricket droe KOE done) is a pain reliever. It is used to treat mild to moderate pain. How should I use this medicine? Take this medicine by mouth. Swallow it with a full glass of water. Follow the directions on the prescription label. If the medicine upsets your stomach, take the medicine with food or milk. Do not take more than you are told to take. Talk to your nurse practitioner per diem regarding the use of this medicine in children. This medicine is not approved for use in children. What side effects may I notice from receiving this medicine? Side effects that you should report to your doctor or health home care coordinator as soon as possible: allergic reactions like skin rash, itching or hives, swelling of the face, lips, or tongue breathing problems confusion feeling faint or lightheaded, falls stomach pain yellowing of the eyes or skin Side effects that usually do not require medical attention (report to your doctor or health home care coordinator if they continue or are bothersome): nausea, vomiting stomach upset What may interact with this medicine? alcohol antihistamines isoniazid medicines for depression, anxiety, or psychotic disturbances medicines for sleep muscle relaxants naltrexone narcotic medicines (opiates) for pain phenobarbital ritonavir tramadol What if I miss a dose? If you miss a dose, take it as soon as you can. If it is almost time for your next dose, take only that dose. Do not take double or extra doses. Where should I keep my medicine? Keep out of the reach of children. This medicine can be abused. Keep your medicine in a safe place to protect it from theft. Do not share this medicine with anyone. Selling or giving away this medicine is dangerous and against the law. Store at room temperature between 15 and 30 degrees C (59 and 86 degrees F). Protect from light. Keep container tightly closed. Throw away any unused medicine after the expiration date. Discard unused medicine and used packaging carefully. Pets and children can be harmed if they find used or lost packages. What should I tell my health care provider before I take this medicine? They need to know if you have any of these conditions: brain tumor Crohn's disease, inflammatory bowel disease, or ulcerative colitis drink more than 3 alcohol-containing drinks per day drug abuse or addiction head injury heart or circulation problems kidney disease or problems going to the bathroom liver disease lung disease, asthma, or breathing problems an unusual or allergic reaction to acetaminophen, hydrocodone, other opioid analgesics, other medicines, foods, dyes, or preservatives or trying to get breast-feeding What should I watch for while using this medicine? Tell your doctor or health home care coordinator if your pain does not go away, if it gets worse, or if you have new or a different type of pain. You may develop tolerance to the medicine. Tolerance means that you will need a higher dose of the medicine for pain relief. Tolerance is normal and is expected if you take the medicine for a long time. Do not suddenly stop taking your medicine because you may develop a severe reaction. Your body becomes used to the medicine. This does NOT mean you are addicted. Addiction is a behavior related to getting and using a drug for a non-medical reason. If you have pain, you have a medical reason to take pain medicine. Your doctor will tell you how much medicine to take. If your doctor wants you to stop the medicine, the dose will be slowly lowered over time to avoid any side effects. You may get drowsy or dizzy when you first start taking the medicine or change doses. Do not drive, use machinery, or do anything that may be dangerous until you know how the medicine affects you. Stand or sit up slowly. There are different types of narcotic medicines (opiates) for pain. If you take more than one type at the same time, you may have more side effects. Give your health care provider a list of all medicines you use. Your doctor will tell you how much medicine to take. Do not take more medicine than directed. Call emergency for help if you have problems breathing. The medicine will cause constipation. Try to have a bowel movement at least every 2 to 3 days. If you do not have a bowel movement for 3 days, call your doctor or health home care coordinator. Too much acetaminophen can be very dangerous. Do not take Tylenol (acetaminophen) or medicines that contain acetaminophen with this medicine. Many non-prescription medicines contain acetaminophen. Always read the labels carefully. Cyclobenzaprine Hydrochloride Oral tablet What is this medicine? CYCLOBENZAPRINE (lisa mcgee) is a muscle relaxer. It is used to treat muscle pain, spasms, and stiffness. How should I use this medicine? Take this medicine by mouth with a glass of water. Follow the directions on the prescription label. If this medicine upsets your stomach, take it with food or milk. Take your medicine at regular intervals. Do not take it more often than directed. Talk to your nurse practitioner per diem regarding the use of this medicine in children. Special care may be needed. What side effects may I notice from receiving this medicine? Side effects that you should report to your doctor or health home care coordinator as soon as possible: allergic reactions like skin rash, itching or hives, swelling of the face, lips, or tongue chest pain fast heartbeat hallucinations seizures vomiting Side effects that usually do not require medical attention (report to your doctor or health home care coordinator if they continue or are bothersome): headache What may interact with this medicine? Do not take this medicine with any of the following medications: cisapride droperidol flecainide grepafloxacin halofantrine levomethadyl MAOIs like Carbex, Eldepryl, Marplan, Nardil, and Parnate nilotinib pimozide probucol sertindole This medicine may also interact with the following medications: abarelix alcohol contrast dyes dolasetron guanethidine medicines for cancer medicines for depression, anxiety, or psychotic disturbances medicines to treat an irregular heartbeat medicines used for sleep or numbness during surgery or procedure methadone octreotide ondansetron palonosetron phenothiazines like chlorpromazine, mesoridazine, prochlorperazine, thioridazine some medicines for infection like alfuzosin, chloroquine, clarithromycin, levofloxacin, mefloquine, pentamidine, troleandomycin tramadol vardenafil What if I miss a dose? If you miss a dose, take it as soon as you can. If it is almost time for your next dose, take only that dose. Do not take double or extra doses. Where should I keep my medicine? Keep out of the reach of children. Store at room temperature between 15 and 30 degrees C (59 and 86 degrees F). Keep container tightly closed. Throw away any unused medicine after the expiration date. What should I tell my health care provider before I take this medicine? They need to know if you have any of these conditions: heart disease, irregular heartbeat, or previous heart attack liver disease thyroid problem an unusual or allergic reaction to cyclobenzaprine, tricyclic antidepressants, lactose, other medicines, foods, dyes, or preservatives or trying to get breast-feeding What should I watch for while using this medicine? Check with your doctor or health home care coordinator if your condition does not improve within 1 to 3 weeks. You may get drowsy or dizzy when you first start taking the medicine or change doses. Do not drive, use machinery, or do anything that may be dangerous until you know how the medicine affects you. Stand or sit up slowly. Your mouth may get dry. Drinking water, chewing sugarless gum, or sucking on hard candy may help. Acetaminophen Oral tablet What is this medicine? ACETAMINOPHEN (a set a JEREMIAH radha fen) is a pain reliever. It is used to treat mild pain and fever. How should I use this medicine? Take this medicine by mouth with a glass of water. Follow the directions on the package or prescription label. Take your medicine at regular intervals. Do not take your medicine more often than directed. Talk to your nurse practitioner per diem regarding the use of this medicine in children. While this drug may be prescribed for children as young as 6 years of age for selected conditions, precautions do apply. What side effects may I notice from receiving this medicine? Side effects that you should report to your doctor or health home care coordinator as soon as possible: allergic reactions like skin rash, itching or hives, swelling of the face, lips, or tongue breathing problems fever or sore throat redness, blistering, peeling or loosening of the skin, including inside the mouth trouble passing urine or change in the amount of urine unusual bleeding or bruising unusually weak or tired yellowing of the eyes or skin Side effects that usually do not require medical attention (report to your doctor or health home care coordinator if they continue or are bothersome): headache nausea, stomach upset What may interact with this medicine? alcohol imatinib isoniazid other medicines with acetaminophen What if I miss a dose? If you miss a dose, take it as soon as you can. If it is almost time for your next dose, take only that dose. Do not take double or extra doses. Where should I keep my medicine? Keep out of reach of children. Store at room temperature between 20 and 25 degrees C (68 and 77 degrees F). Protect from moisture and heat. Throw away any unused medicine after the expiration date. What should I tell my health care provider before I take this medicine? They need to know if you have any of these conditions: if you frequently drink alcohol containing drinks liver disease an unusual or allergic reaction to acetaminophen, other medicines, foods, dyes or preservatives or trying to get breast-feeding What should I watch for while using this medicine? Tell your doctor or health home care coordinator if the pain lasts more than 10 days (5 days for children), if it gets worse, or if there is a new or different kind of pain. Also, check with your doctor if a fever lasts for more than 3 days. Do not take other medicines that contain acetaminophen with this medicine. Always read labels carefully. If you have questions, ask your doctor or pharmacist. If you take too much acetaminophen get medical help right away. Too much acetaminophen can be very dangerous and cause liver damage. Even if you do not have symptoms, it is important to get help right away. You have been given the following additional information: Back Pain (Acute Or Chronic) Hydrocodone Bitartrate, Acetaminophen Oral tablet Cyclobenzaprine Hydrochloride Oral tablet Acetaminophen Oral tablet Do not work for two days. (Electronically signed by Mike Hickman DO 05/21/2016 2:16)
--- NOTE | 2016-05-21 02:16 | ED MAR SUMMARY ---
..... Medication Administration Record [facility] [address] [place] [address] Patient: JACK SINGLETON Visit ID: [id number] 56y, M Weight: 89.3 kg Height/Length: 69 in BMI: 29.1 ALLERGIES: Naproxen, Tegretol
--- NOTE | 2016-05-21 02:17 | ED MED RECONCILIATION SUMMARY ---
Patient: JACK SINGLETON Medication Reconciliation Report [facility] VisitID: [id number] [address] [place] [address] 56y, M Registration Date/Time: 05/20/2016 Weight: 89.3 kg Height/Length: 69 in. BMI: 29.1 ALLERGIES: Naproxen, Tegretol The patient's Home Medications are listed below: CONTINUE TAKING THE FOLLOWING MEDICATIONS: AmLODIPine Besylate Oral (5 mg) 1 tablet, daily Arnuity 200mcg, 2x a day, inhaled powder CeleXA Oral 40 mg, daily HydrOXYzine HCl Oral 25 mg, daily Levothyroxine Sodium Oral 175 mcg, daily Losartan Potassium Oral (25 mg) 1 tablet, daily Methocarbamol Oral Ventolin HFA Inhalation 2 puffs, 4x a day ZyPREXA Oral 7.5 mg, daily The source(s) of the original Home Medication information: patient The following Medications were given to the patient in the Emergency Department: None. The following Medications were prescribed to the patient: Acetaminophen (available over the counter): take according to label instructions. -- Mike Hickman DO Hydrocodone/APAP 5mg / 325mg: take 1-2 orally every 8 hours as needed for pain. Dispense ten (10). No refill. -- Mike Hickman DO Flexeril 10 mg: Take 1 orally every 8 hours as needed for muscle spasm. Dispense twenty (20). No refills. Substitution is permissible. -- Mike Hickman DO
--- NOTE | 2016-05-21 02:17 | ED MED RECONCILIATION SUMMARY ---
Patient: JACK SINGLETON Medication Reconciliation Report [facility] VisitID: [id number] [address] [place] [address] 56y, M Registration Date/Time: 05/20/2016 Weight: 89.3 kg Height/Length: 69 in. BMI: 29.1 ALLERGIES: Naproxen, Tegretol The patient's Home Medications are listed below: CONTINUE TAKING THE FOLLOWING MEDICATIONS: AmLODIPine Besylate Oral (5 mg) 1 tablet, daily Arnuity 200mcg, 2x a day, inhaled powder CeleXA Oral 40 mg, daily HydrOXYzine HCl Oral 25 mg, daily Levothyroxine Sodium Oral 175 mcg, daily Losartan Potassium Oral (25 mg) 1 tablet, daily Methocarbamol Oral Ventolin HFA Inhalation 2 puffs, 4x a day ZyPREXA Oral 7.5 mg, daily The source(s) of the original Home Medication information: patient The following Medications were given to the patient in the Emergency Department: None. The following Medications were prescribed to the patient: Acetaminophen (available over the counter): take according to label instructions. -- Mike Hickman DO Hydrocodone/APAP 5mg / 325mg: take 1-2 orally every 8 hours as needed for pain. Dispense ten (10). No refill. -- Mike Hickman DO Flexeril 10 mg: Take 1 orally every 8 hours as needed for muscle spasm. Dispense twenty (20). No refills. Substitution is permissible. -- Mike Hickman DO
== END 2016-05-20 21:55 | disposition home or self-care (01) ==
LOC: ED SRH 21:02
DX: S39.012S Strain of muscle, fascia and tendon of lower back, sequela (principal); G89.21 Chronic pain due to trauma; X50.0XXA Overexertion from strenuous movement or load, initial encounter; Y93.89 Activity, other specified; Y92.009 Unspecified place in unspecified non-institutional (private) residence as the place of occurrence of the external cause; Y99.9 Unspecified external cause status; I10 Essential (primary) hypertension; E07.9 Disorder of thyroid, unspecified; J44.9 Chronic obstructive pulmonary disease, unspecified; Z79.899 Other long term (current) drug therapy

== ENCOUNTER 2016-06-08 20:22 | Emergency (ER) | payer OTHER ==
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
--- NOTE | 2016-06-10 21:46 | ED DISCHARGE INSTRUCTIONS ---
Patient: JACK SINGLETON General Instructions [facility] VisitID: [id number] [address] [place] [address] 56y, M Registration Date/Time: 06/08/2016 Muscle strain of the left trapezius at the shoulder. INSTRUCTIONS (USE FLEXERIL INSTEAD OF ROBAXIN). Prescription Medications: Ibuprofen 600mg tablets: take 1 tablet orally every 8 hours as needed for pain. Dispense thirty (30). No refills. Flexeril 10 mg: Take 1 orally every 8 hours as needed for muscle spasm. Dispense twenty (20). No refills. Substitution is permissible. Follow-up: Follow up with your doctor in six days if not better. Understanding of the discharge instructions verbalized by patient. ADDITIONAL INFORMATION Muscle Strain,Extremity A MUSCLE STRAIN is a stretching and tearing of muscle fibers. This causes pain, especially with motion of that muscle. There may also be some swelling and bruising. Home Care: 1) Keep the injured area raised to reduce pain and swelling. This is especially important during the first 48 hours. 2) Make an ice pack (ice cubes in a plastic bag, wrapped in a towel) and apply for 20 minutes every 1-2 hours the first day. You should continue with ice packs 3-4 times a day for the second and third days. Unless otherwise instructed, on the fourth day you may begin hot soaks or hot packs (small towel soaked in hot water) 3-4 times a day while you gently exercise the involved area. 3) You may use acetaminophen (Tylenol) or ibuprofen (Motrin, Advil) to control pain, unless another medicine was prescribed. [ NOTE : If you have chronic liver or kidney disease or ever had a stomach ulcer or GI bleeding, talk with your doctor before using these medicines.] 4) For LEG STRAINS: If CRUTCHES have been recommended, do not bear full weight on the injured leg until you can do so without pain. You may return to sports when you are able to hop and run on the injured leg without pain. Follow Up with your doctor or this facility if you are not improving within the next five days. Get Prompt Medical Attention if any of the following occur: -- Fingers or toes become swollen, cold, blue, numb or tingly -- Pain or swelling increases You have been given the following additional information: Muscle Strain, Extremity (Electronically signed by Rock Elliott MD 06/10/2016 21:46)
--- NOTE | 2016-06-10 21:46 | ED DISCHARGE INSTRUCTIONS ---
Patient: JACK SINGLETON General Instructions [facility] VisitID: [id number] [address] [place] [address] 56y, M Registration Date/Time: 06/08/2016 Muscle strain of the left trapezius at the shoulder. INSTRUCTIONS (USE FLEXERIL INSTEAD OF ROBAXIN). Prescription Medications: Ibuprofen 600mg tablets: take 1 tablet orally every 8 hours as needed for pain. Dispense thirty (30). No refills. Flexeril 10 mg: Take 1 orally every 8 hours as needed for muscle spasm. Dispense twenty (20). No refills. Substitution is permissible. Follow-up: Follow up with your doctor in six days if not better. Understanding of the discharge instructions verbalized by patient. ADDITIONAL INFORMATION Muscle Strain,Extremity A MUSCLE STRAIN is a stretching and tearing of muscle fibers. This causes pain, especially with motion of that muscle. There may also be some swelling and bruising. Home Care: 1) Keep the injured area raised to reduce pain and swelling. This is especially important during the first 48 hours. 2) Make an ice pack (ice cubes in a plastic bag, wrapped in a towel) and apply for 20 minutes every 1-2 hours the first day. You should continue with ice packs 3-4 times a day for the second and third days. Unless otherwise instructed, on the fourth day you may begin hot soaks or hot packs (small towel soaked in hot water) 3-4 times a day while you gently exercise the involved area. 3) You may use acetaminophen (Tylenol) or ibuprofen (Motrin, Advil) to control pain, unless another medicine was prescribed. [ NOTE : If you have chronic liver or kidney disease or ever had a stomach ulcer or GI bleeding, talk with your doctor before using these medicines.] 4) For LEG STRAINS: If CRUTCHES have been recommended, do not bear full weight on the injured leg until you can do so without pain. You may return to sports when you are able to hop and run on the injured leg without pain. Follow Up with your doctor or this facility if you are not improving within the next five days. Get Prompt Medical Attention if any of the following occur: -- Fingers or toes become swollen, cold, blue, numb or tingly -- Pain or swelling increases You have been given the following additional information: Muscle Strain, Extremity (Electronically signed by Rock Elliott MD 06/10/2016 21:46)
--- NOTE | 2016-06-10 21:46 | ED MED RECONCILIATION SUMMARY ---
Patient: JACK SINGLETON Medication Reconciliation Report [facility] VisitID: [id number] [address] [place] [address] 56y, M Registration Date/Time: 06/08/2016 Weight: 89.8 kg Height/Length: 69 in. BMI: 29.3 ALLERGIES: Naproxen, Tegretol The patient's Home Medications are listed below: THE FOLLOWING MEDICATIONS NEED TO BE RECONCILED: AmLODIPine Besylate Oral (5 mg) 1 tablet, daily Arnuity 200mcg, 2x a day, inhaled powder CeleXA Oral 40 mg, daily HydrOXYzine HCl Oral 25 mg, daily Levothyroxine Sodium Oral 175 mcg, daily Losartan Potassium Oral (25 mg) 1 tablet, daily Methocarbamol Oral Ventolin HFA Inhalation 2 puffs, 4x a day ZyPREXA Oral 7.5 mg, daily The source(s) of the original Home Medication information: Not obtained. The following Medications were given to the patient in the Emergency Department: None. The following Medications were prescribed to the patient: Ibuprofen 600mg tablets: take 1 tablet orally every 8 hours as needed for pain. Dispense thirty (30). No refills. -- Rock Elliott MD Flexeril 10 mg: Take 1 orally every 8 hours as needed for muscle spasm. Dispense twenty (20). No refills. Substitution is permissible. -- Rock Elliott MD
--- NOTE | 2016-06-10 21:46 | ED MED RECONCILIATION SUMMARY ---
Patient: JACK SINGLETON Medication Reconciliation Report [facility] VisitID: [id number] [address] [place] [address] 56y, M Registration Date/Time: 06/08/2016 Weight: 89.8 kg Height/Length: 69 in. BMI: 29.3 ALLERGIES: Naproxen, Tegretol The patient's Home Medications are listed below: THE FOLLOWING MEDICATIONS NEED TO BE RECONCILED: AmLODIPine Besylate Oral (5 mg) 1 tablet, daily Arnuity 200mcg, 2x a day, inhaled powder CeleXA Oral 40 mg, daily HydrOXYzine HCl Oral 25 mg, daily Levothyroxine Sodium Oral 175 mcg, daily Losartan Potassium Oral (25 mg) 1 tablet, daily Methocarbamol Oral Ventolin HFA Inhalation 2 puffs, 4x a day ZyPREXA Oral 7.5 mg, daily The source(s) of the original Home Medication information: Not obtained. The following Medications were given to the patient in the Emergency Department: None. The following Medications were prescribed to the patient: Ibuprofen 600mg tablets: take 1 tablet orally every 8 hours as needed for pain. Dispense thirty (30). No refills. -- Rock Elliott MD Flexeril 10 mg: Take 1 orally every 8 hours as needed for muscle spasm. Dispense twenty (20). No refills. Substitution is permissible. -- Rock Elliott MD
--- NOTE | 2016-06-10 21:46 | ED MAR SUMMARY ---
..... Medication Administration Record [facility] [address] [place] [address] Patient: JACK SINGLETON Visit ID: [id number] 56y, M Weight: 89.8 kg Height/Length: 69 in BMI: 29.3 ALLERGIES: Naproxen, Tegretol
--- NOTE | 2016-06-10 21:46 | ED MAR SUMMARY ---
..... Medication Administration Record [facility] [address] [place] [address] Patient: JACK SINGLETON Visit ID: [id number] 56y, M Weight: 89.8 kg Height/Length: 69 in BMI: 29.3 ALLERGIES: Naproxen, Tegretol
== END 2016-06-08 22:45 | disposition home or self-care (01) ==
LOC: ED SRH 20:22
DX: S46.812A Strain of other muscles, fascia and tendons at shoulder and upper arm level, left arm, initial encounter (principal); X58.XXXA Exposure to other specified factors, initial encounter; I50.9 Heart failure, unspecified; Z79.899 Other long term (current) drug therapy; Z79.51 Long term (current) use of inhaled steroids; Z88.6 Allergy status to analgesic agent; Z88.8 Allergy status to other drugs, medicaments and biological substances

== ENCOUNTER 2016-10-04 22:54 | Emergency (ER) | payer OTHER ==
--- NOTE | 2016-10-05 00:16 | DIAGNOSTIC IMAGING REPORT ---
PROCEDURE: XR CHEST 2 VIEW INDICATION: COUGH TECHNIQUE: PA and lateral views. COMPARISON: Compared to chest x-ray on 24:17. FINDINGS: Allowing for overlying wires and electrodes, lungs are clear. Prominent fat pads at the cardiophrenic angles. Heart and mediastinum are normal. Thorax is normal. IMPRESSION: 1. Negative chest.
--- NOTE | 2016-10-05 00:43 | ED NURSING NOTES ---
Clinical Report - Nurses [facility] [address] [place] [address] 10/04/2016 22:54 Patient: JACK SINGLETON TRIAGE Triage time 23:Oct 04 2016. Acuity: LEVEL 3. Chief Complaint: SHORTNESS OF BREATH and DIFFICULTY BREATHING and COUGH. SEPSIS SCREEN: Sepsis Screen: negative. Infection suspected/documented. Heart rate greater than 90. VERITO COMA SCORE: Verito Coma Scale: 15- eyes open spontaneously (4); best verbal response- oriented x 4 (5); best motor response- obeys commands (6). --23:12 Charisse Mathew 23:07 10/04/16. BP: 146/88. HR: 103. RR: 24. O2 saturation: 93% on room air. Temp: 98.1 F (oral). Pain level now: 10/09. --23:12 Charisse Mathew. Weight: 88.4 kg stated. Height/Length: 69 inches Per Patient. BMI: 28.8. --23:10 Charisse Mathew. Medications AmLODIPine Besylate Oral (Tablet 5 mg) 1 tablet, daily. Arnuity 200mcg, 2x a day (inhaled powder). CeleXA Oral 40 mg, daily. HydrOXYzine HCl Oral 25 mg, daily. Levothyroxine Sodium Oral 175 mcg, daily. Losartan Potassium Oral (Tablet 25 mg) 1 tablet, daily. Methocarbamol Oral. Ventolin HFA Inhalation 2 puffs, 4x a day. ZyPREXA Oral 7.5 mg, daily. --23:09 Charisse Mathew Steroid, unsure of medication name . --23:10 Charisse Mathew. Allergies Naproxen.(nausea) Tegretol. --23:09 Charisse Mathew. History Arrived by private vehicle. Historian: patient. Unaccompanied. Onset. (2 days). ( Patient reports cough for two days. He reports history of COPD. He states his nebulizer medication is not assisting him with his shortness of breath. He reports pain in his chest when coughing. He reports headache and body aches.). PAST MEDICAL HX: Chronic obstructive pulmonary disease. Immunizations: up-to-date. SOCIAL HX: Heavy tobacco smoker- 1-2 packs per day. No alcohol use or drug use. No infectious disease exposure. ABUSE ASSESSMENT: No report of abuse. FALL RISK ASSESSMENT: Fall risk assessment completed. No fall risk identified. NUTRITIONAL RISK ASSESSMENT: The nutritional risk assessment revealed no deficiencies. FUNCTIONAL ASSESSMENT: Functional assessment: no impairments noted. LEARNING NEEDS ASSESSMENT: The learning needs assessment revealed no barriers. SKIN INTEGRITY ASSESSMENT: Skin integrity risk assessment completed. No skin integrity risk identified. --23:12 Charisse Mathew. PROBLEMS: Influenza. Chronic Back Pain. Pneumonia. Heart Disease. Sciatica. Lumbar Strain. Lung Disease. Myalgias. Abnormal Test. Cholecystitis. Peptic Ulcer Disease. Asthma. Bronchitis. Immunizations. Hypertension. Bipolar Disorder. COPD - Chronic Obstructive Pulmonary Disease. --23:10 Charisse Mathew. ADDITIONAL SURGERIES: Cholecystectomy. Endoscopy. Hernia Repair. --23:10 Charisse Mathew. Interventions ID band on patient. To treatment room. --23:12 Charisse Mathew. PHYSICAL ASSESSMENT Ambulatory to room. Patient gowned. GENERAL / NEURO / PSYCH: Alert. Oriented X 4. He appears uncomfortable. RESPIRATORY: Mild respiratory distress. The patient can speak in full sentences. Nonproductive cough. CVS: Cardiac rhythm: sinus tachycardia; (103). GI / : Abdomen soft and nontender. SKIN: Skin is warm and dry. Skin is slightly diaphoretic. --23:12 Charisse Mathew. NURSING PROGRESS NOTES monitoring analyst, pulse oximeter and NIBP monitor placed on patient; monitor alarms on. Patient gowned. Head of bed elevated 90 degrees. Reassurance given to the patient. Two patient identifiers checked. Call light placed in reach. Side rails up x 1. Bed placed in lowest position. Brakes of bed on. Patient ready for evaluation- chart flagged and ED physician notified. ( RT called to bedside). --23:13 Charisse Mathew EKG time: (23:15 Oct 04 2016). EKG was performed by a tech and shown to the ED physician. --23:14 Charisse Mathew ( RT at bedside performing breathing treatment). --23:20 PriyankaSidneyCharsise ( Feels slightly improved after breathing treatment). --00:11 Priyanka Charisse 00:10/05/16. BP: 140/70. HR: 95. RR: 20. O2 saturation: 96% on room air. --00:11 Priyanka Charisse 23:07 10/04/2016 Duoneb (Ipratropium-Albuterol) Neb TX Nebulizer 1 unit dose given. Given by the respiratory therapist. Allergies verified and confirmed 5 rights. --00:45 PriyankaSidneyCharisse 23:20 10/04/2016 Site #1 started via IV in the right antecubital space with an 20g angiocath, with aseptic technique and good blood return; one attempt. Blood drawn: rainbow set. Labeled in the presence of the patient and sent to the lab. Saline lock flushed with 10 mL saline. --23:20 Priyanka Charisse 00:10/05/2016 SOLU-MEDROL (MethylPREDNISolone Sodium Succ) IVP 125 mg given over 3 minute(s) via site #1. Allergies verified and confirmed 5 rights. IV patency established. IV site checked: no pain, redness, or swelling. IV flushed thoroughly pre- and post-medication administration. IVP given by RN. --00:10 Priyanka Charisse 00:10/05/2016 Azithromycin PO Tablets 500 mg given. Allergies verified and confirmed 5 rights. --00:10 Priyanka Charisse 00:10/05/2016 Toradol IVP 30 mg given over 1 minute(s) via site #1. Allergies verified and confirmed 5 rights. IV patency established. IV site checked: no pain, redness, or swelling. IV flushed thoroughly pre- and post-medication administration. IVP given by RN. --00:10 Charisse Mathew. DISPOSITION / DISCHARGE :10/05/16. The goals identified in the patient's plan of care were met. FALL RISK ASSESSMENT: Fall risk assessment completed. No fall risk identified. --01:20 Charisse Mathew 01:10/05/16. BP: 140/73. HR: 95. RR: 18. O2 saturation: 95% on room air. Temp: 98.9 F (oral). Pain level now: 11/09. --01:20 Charisse Mathew 01:05 10/05/16. No learning barriers present. Discharge instructions provided and reviewed with the patient. Reviewed warnings (Do not drive while taking sedative medications). Reviewed medication(s) side effects, precautions, dosing and course information. Prescription(s) given to the patient. Reviewed need for increased fluid intake. Patient verbalized understanding. Written instructions provided in [place]. ( Follow up with your PCP in three days. Return if your symptoms worsen or do not improve with medications. Encouraged patient to practice deep breathing and cough. Encouraged patient with smoking cessation. Patient verbalized understanding and had no additional questions at this time.). The patient was discharged by the physician. He was discharged home and accompanied by credit charge authorizer. He left the Emergency Department ambulatory and via private vehicle. Bookkeeping Assistant driving. --01:45 Charisse Mathew 01:05 10/05/2016 Site #1 removed upon discharge. Catheter intact. Bandaid applied. --01:45 Charisse Mathew. Locked/Released at 10/05/2016 1:46 by Charisse Mathew,
--- NOTE | 2016-10-05 00:43 | ED ORDER SUMMARY ---
..... Patient: JACK SINGLETON OrderSheet [facility] VisitID: [id number] [address] [place] [address] 56y, M Registration Date/Time: 10/04/2016 ORDER SHEET Weight: 88.4 kg (stated) Allergies: Naproxen, Tegretol GENERAL ORDERS: Chest 2V Urgent (23:03 10/04/2016 Molina Estrada) (Ack 23:04 AMcQuoid ER Tech1) (23:43 GUnger) MEDICATION ORDERS: Azithromycin PO 500 mg (NOW) (23:57 10/04/2016 Molina Estrada) (Ack 0:01 HSoule) (0:10 HSoule) DuoNeb Neb Tx 1 unit dose (back logged for just after time patient roomed) (00:38 10/05/2016 Molina Estrada) (0:45 HSoule) IV FLUIDS: Solu-MEDROL IV 125 mg (NOW) (:57 10/04/2016 Molina Estrada) (Ack 0:01 HSoule) (0:10 HSoule) Toradol IV 30 mg (NOW) (:57 10/04/2016 Molina Estrada) (Ack 0:01 HSoule) (0:10 HSoule) ORDER SHEET NOTES: [Electronically signed by Charisse Mathew (01:46 10/05/2016)] [Electronically signed by Gurjit Granados Dr. (00:11 10/08/2016)] [Electronically locked/signed by Charisse Mathew (01:46 10/05/2016)]
--- NOTE | 2016-10-05 00:43 | ED NURSING NOTES ---
Clinical Report - Nurses [facility] [address] [place] [address] 10/04/2016 22:54 Patient: JACK SINGLETON TRIAGE Triage time 23:Oct 04 2016. Acuity: LEVEL 3. Chief Complaint: SHORTNESS OF BREATH and DIFFICULTY BREATHING and COUGH. SEPSIS SCREEN: Sepsis Screen: negative. Infection suspected/documented. Heart rate greater than 90. VERITO COMA SCORE: Verito Coma Scale: 15- eyes open spontaneously (4); best verbal response- oriented x 4 (5); best motor response- obeys commands (6). --23:12 Charisse Mathew 23:07 10/04/16. BP: 146/88. HR: 103. RR: 24. O2 saturation: 93% on room air. Temp: 98.1 F (oral). Pain level now: 10/09. --23:12 Charisse Mathew. Weight: 88.4 kg stated. Height/Length: 69 inches Per Patient. BMI: 28.8. --23:10 Charisse Mathew. Medications AmLODIPine Besylate Oral (Tablet 5 mg) 1 tablet, daily. Arnuity 200mcg, 2x a day (inhaled powder). CeleXA Oral 40 mg, daily. HydrOXYzine HCl Oral 25 mg, daily. Levothyroxine Sodium Oral 175 mcg, daily. Losartan Potassium Oral (Tablet 25 mg) 1 tablet, daily. Methocarbamol Oral. Ventolin HFA Inhalation 2 puffs, 4x a day. ZyPREXA Oral 7.5 mg, daily. --23:09 Charisse Mathew Steroid, unsure of medication name . --23:10 Charisse Mathew. Allergies Naproxen.(nausea) Tegretol. --23:09 Charisse Mathew. History Arrived by private vehicle. Historian: patient. Unaccompanied. Onset. (2 days). ( Patient reports cough for two days. He reports history of COPD. He states his nebulizer medication is not assisting him with his shortness of breath. He reports pain in his chest when coughing. He reports headache and body aches.). PAST MEDICAL HX: Chronic obstructive pulmonary disease. Immunizations: up-to-date. SOCIAL HX: Heavy tobacco smoker- 1-2 packs per day. No alcohol use or drug use. No infectious disease exposure. ABUSE ASSESSMENT: No report of abuse. FALL RISK ASSESSMENT: Fall risk assessment completed. No fall risk identified. NUTRITIONAL RISK ASSESSMENT: The nutritional risk assessment revealed no deficiencies. FUNCTIONAL ASSESSMENT: Functional assessment: no impairments noted. LEARNING NEEDS ASSESSMENT: The learning needs assessment revealed no barriers. SKIN INTEGRITY ASSESSMENT: Skin integrity risk assessment completed. No skin integrity risk identified. --23:12 Charisse Mathew. PROBLEMS: Influenza. Chronic Back Pain. Pneumonia. Heart Disease. Sciatica. Lumbar Strain. Lung Disease. Myalgias. Abnormal Test. Cholecystitis. Peptic Ulcer Disease. Asthma. Bronchitis. Immunizations. Hypertension. Bipolar Disorder. COPD - Chronic Obstructive Pulmonary Disease. --23:10 Charisse Mathew. ADDITIONAL SURGERIES: Cholecystectomy. Endoscopy. Hernia Repair. --23:10 Charisse Mathew. Interventions ID band on patient. To treatment room. --23:12 Charisse Mathew. PHYSICAL ASSESSMENT Ambulatory to room. Patient gowned. GENERAL / NEURO / PSYCH: Alert. Oriented X 4. He appears uncomfortable. RESPIRATORY: Mild respiratory distress. The patient can speak in full sentences. Nonproductive cough. CVS: Cardiac rhythm: sinus tachycardia; (103). GI / : Abdomen soft and nontender. SKIN: Skin is warm and dry. Skin is slightly diaphoretic. --23:12 Charisse Mathew. NURSING PROGRESS NOTES monitoring coordinator, pulse oximeter and NIBP monitor placed on patient; monitor alarms on. Patient gowned. Head of bed elevated 90 degrees. Reassurance given to the patient. Two patient identifiers checked. Call light placed in reach. Side rails up x 1. Bed placed in lowest position. Brakes of bed on. Patient ready for evaluation- chart flagged and ED physician notified. ( RT called to bedside). --23:13 Charisse Mathew EKG time: (23:15 Oct 04 2016). EKG was performed by a tech and shown to the ED physician. --23:14 Charisse Mathew ( RT at bedside performing breathing treatment). --23:20 PriyankaSidneyCharisse ( Feels slightly improved after breathing treatment). --00:11 Priyanka Charisse 00:10/05/16. BP: 140/70. HR: 95. RR: 20. O2 saturation: 96% on room air. --00:11 Priyanka Charisse 23:07 10/04/2016 Duoneb (Ipratropium-Albuterol) Neb TX Nebulizer 1 unit dose given. Given by the respiratory therapist. Allergies verified and confirmed 5 rights. --00:45 PriyankaSidneyCharisse 23:20 10/04/2016 Site #1 started via IV in the right antecubital space with an 20g angiocath, with aseptic technique and good blood return; one attempt. Blood drawn: rainbow set. Labeled in the presence of the patient and sent to the lab. Saline lock flushed with 10 mL saline. --23:20 Priyanka Charisse 00:10/05/2016 SOLU-MEDROL (MethylPREDNISolone Sodium Succ) IVP 125 mg given over 3 minute(s) via site #1. Allergies verified and confirmed 5 rights. IV patency established. IV site checked: no pain, redness, or swelling. IV flushed thoroughly pre- and post-medication administration. IVP given by RN. --00:10 Priyanka Charisse 00:10/05/2016 Azithromycin PO Tablets 500 mg given. Allergies verified and confirmed 5 rights. --00:10 Priyanka Charisse 00:10/05/2016 Toradol IVP 30 mg given over 1 minute(s) via site #1. Allergies verified and confirmed 5 rights. IV patency established. IV site checked: no pain, redness, or swelling. IV flushed thoroughly pre- and post-medication administration. IVP given by RN. --00:10 Charisse Mathew. DISPOSITION / DISCHARGE :10/05/16. The goals identified in the patient's plan of care were met. FALL RISK ASSESSMENT: Fall risk assessment completed. No fall risk identified. --01:20 Charisse Mathew 01:10/05/16. BP: 140/73. HR: 95. RR: 18. O2 saturation: 95% on room air. Temp: 98.9 F (oral). Pain level now: 11/09. --01:20 Charisse Mathew 01:05 10/05/16. No learning barriers present. Discharge instructions provided and reviewed with the patient. Reviewed warnings (Do not drive while taking sedative medications). Reviewed medication(s) side effects, precautions, dosing and course information. Prescription(s) given to the patient. Reviewed need for increased fluid intake. Patient verbalized understanding. Written instructions provided in Burkinan. ( Follow up with your PCP in three days. Return if your symptoms worsen or do not improve with medications. Encouraged patient to practice deep breathing and cough. Encouraged patient with smoking cessation. Patient verbalized understanding and had no additional questions at this time.). The patient was discharged by the physician. He was discharged home and accompanied by critical care physician. He left the Emergency Department ambulatory and via private vehicle. Card Stripper driving. --01:45 Charisse Mathew 01:05 10/05/2016 Site #1 removed upon discharge. Catheter intact. Bandaid applied. --01:45 Charisse Mathew. Locked/Released at 10/05/2016 1:46 by Charisse Mathew,
--- NOTE | 2016-10-05 00:43 | ED ORDER SUMMARY ---
..... Patient: JACK SINGLETON OrderSheet [facility] VisitID: [id number] [address] [place] [address] 56y, M Registration Date/Time: 10/04/2016 ORDER SHEET Weight: 88.4 kg (stated) Allergies: Naproxen, Tegretol GENERAL ORDERS: Chest 2V Urgent (23:03 10/04/2016 Molina Estrada) (Ack 23:04 AMcQuoid ER Tech1) (23:43 GUnger) MEDICATION ORDERS: Azithromycin PO 500 mg (NOW) (23:57 10/04/2016 Molina Estrada) (Ack 0:01 HSoule) (0:10 HSoule) DuoNeb Neb Tx 1 unit dose (back logged for just after time patient roomed) (00:38 10/05/2016 Molina Estrada) (0:45 HSoule) IV FLUIDS: Solu-MEDROL IV 125 mg (NOW) (:57 10/04/2016 Molina Estrada) (Ack 0:01 HSoule) (0:10 HSoule) Toradol IV 30 mg (NOW) (:57 10/04/2016 Molina Estrada) (Ack 0:01 HSoule) (0:10 HSoule) ORDER SHEET NOTES: [Electronically signed by Charisse Mathew (01:46 10/05/2016)] [Electronically signed by Gurjit Granados Dr. (00:11 10/08/2016)] [Electronically locked/signed by Charisse Mathew (01:46 10/05/2016)]
--- NOTE | 2016-10-05 00:43 | ED CLINICAL REPORT ---
Clinical Report - Physicians/Mid Levels [facility] [address] [place] [address] 10/04/2016 22:54 Patient: JACK SINGLETON Time Seen: 2255; initial patient contact. Arrived- By private vehicle. Historian- patient. HISTORY OF PRESENT ILLNESS Chief Complaint: WHEEZING. This started past 2 days and is still present and worsening. It was abrupt in onset and has been constant but is not gone now. The dyspnea is described as moderate. The patient has had sputum production and a cough. No orthopnea or chest pain or discomfort. Asthma triggers: unknown. Takes asthma medications. (no hemoptysis or leg swelling. no recent trauma.). Similar symptoms previously: Many times (hx of COPD). Recent medical care: Not recently seen/assessed. REVIEW OF SYSTEMS No fever, chills, headache, calf pain or skin rash. All systems otherwise negative, except as recorded above. PAST HISTORY See nurses notes. Has not had recent surgery or recent DC. No history of CHF or cancer. Not taking estrogens. Does not have advanced age as a risk factor or immobility as a risk factor. Is not obese. Medications: Steroid, unsure of medication name . AmLODIPine Besylate Oral (Tablet 5 mg) 1 tablet, daily. Arnuity 200mcg, 2x a day (inhaled powder). CeleXA Oral 40 mg, daily. HydrOXYzine HCl Oral 25 mg, daily. Levothyroxine Sodium Oral 175 mcg, daily. Losartan Potassium Oral (Tablet 25 mg) 1 tablet, daily. Methocarbamol Oral. Ventolin HFA Inhalation 2 puffs, 4x a day. ZyPREXA Oral 7.5 mg, daily. Allergies: Naproxen.(nausea) Tegretol. SOCIAL HISTORY Smoker- current status unknown. No alcohol use or drug use. No recent travel. Is a local resident. ADDITIONAL NOTES The nursing notes have been reviewed. PHYSICAL EXAM Vital Signs: 10/04/2016 23:07 BP: 146/88. HR: 103. RR: 24. O2 saturation: 93%. Temp: 98.1 F. Pain level now: 7/10. Oxygen saturation normal. Appearance: Alert. Patient in mild distress. Eyes: Pupils equal, round and reactive to light. Eyes normal inspection. ENT: Ears normal. Nose normal. Pharynx normal. Uvula midline. Neck: Normal inspection. Neck supple. CVS: Normal heart rate and rhythm. Heart sounds normal. Pulses normal. Respiratory: Mild respiratory distress. Expiratory mild bilateral wheezes diffusely. Breath sounds normal. No stridor, rales or rhonchi. Abdomen: Soft and nontender. No organomegaly. Skin: Skin warm and dry. Normal skin color. No rash. Normal skin turgor. Extremities: Extremities exhibit normal ROM. No lower extremity edema. LABS, X-RAYS, AND EKG Chest X-ray: (PROCEDURE: XR CHEST 2 VIEW INDICATION: COUGH TECHNIQUE: PA and lateral views. COMPARISON: Compared to chest x-ray on 24:17. FINDINGS: Allowing for overlying wires and electrodes, lungs are clear. Prominent fat pads at the cardiophrenic angles. Heart and mediastinum are normal. Thorax is normal. IMPRESSION: 1. Negative chest.). The X-rays were independently viewed by me and interpreted by the radiologist. The X-rays were discussed with the radiologist (via pacs). PROGRESS AND PROCEDURES Course of Care: patient with hx of COPD. Wheezing on exam. Do not feel this is AMI or PE. patient evaluated with CXR and breathing treatments. If patient does not improve as expected, will consider other causes for shortness of breath. Patient with significant improvement with breathing. Patient in no acute distress. Patient reports that if he was a 10 when he came in, now his is a 1 or a 2. Reports he is comfortable going home with this level. Patient with significantly improved exam. CXR clear. Improved outcomes with abx treatment in COPD exacerbation. First dose provided here. Disposition: Discharged. Condition: good. CLINICAL IMPRESSION Acute exacerbation of COPD. INSTRUCTIONS Warnings: GENERAL WARNINGS: Return or contact your physician immediately if your condition worsens or changes unexpectedly, if not improving as expected, or if other problems arise. Specifically return if pain, vomiting, bleeding, breathing difficulty or fever. Your Current Medications: CONTINUE TAKING THE FOLLOWING MEDICATIONS: AmLODIPine Besylate Oral : Tablet 5 mg, 1 tablet daily. Arnuity* : 200mcg 2x a day, inhaled powder. CeleXA Oral : 40 mg daily. HydrOXYzine HCl Oral : 25 mg daily. Levothyroxine Sodium Oral : 175 mcg daily. Losartan Potassium Oral : Tablet 25 mg, 1 tablet daily. Methocarbamol Oral. Steroid, unsure of medication name *. Ventolin HFA Inhalation : 2 puffs 4x a day. ZyPREXA Oral : 7.5 mg daily. Prescription Medications: Zithromax Z-Deep: Take according to package instructions. No refills. Substitution is permissible. [place] 5 mg / 325 mg tablets: take 1 orally every 6 hours as needed for pain. Dispense ten (10). No refill. Substitution is permissible. Phenergan w/ Codeine 10mg / 6.25mg per 5 mL: take 1-2 teaspoons every 6 hours as needed for cough. Dispense sixty (60) mL. No refill. Substitution is permissible. (at night only) Prednisone every day for 5 days. Dispense sufficient quantity. No refills. (60 mg PO.) Follow-up: Return to the emergency department as needed. Follow up with your doctor in three days. Reason for referral: recheck today's concerns. Summary of care provided to patient via paper. Screening today revealed the patient's blood pressure to be in the normal range. The patient should follow up with a primary care provider for blood pressure management. Understanding of the discharge instructions verbalized by patient. (Electronically signed by Gurjit Granados Dr. 10/08/2016 0:11)
--- NOTE | 2016-10-08 00:12 | ED MAR SUMMARY ---
..... Medication Administration Record [facility] [address] [place] [address] Patient: JACK SINGLETON Visit ID: [id number] 56y, M Weight: 88.4 kg Height/Length: 69 in BMI: 28.8 ALLERGIES: Naproxen, Tegretol Given 23:07 10/04/2016 Charisse Mathew, Medication Administered: DUONEB [NEB TX] (IPRATROPIUM-ALBUTEROL), Dose: 1 unit dose Nebulizer Neb TX. Medication Ordered: DuoNeb Neb Tx 1 unit dose (back logged for just after time patient roomed). Given 00:10/05/2016 Charisse Mathew, Medication Administered: SOLU-MEDROL [IVP] (METHYLPREDNISOLONE SODIUM SUCC), Dose: 125 mg IVP over 3 minute(s), Site: #1 right AC. Medication Ordered: Solu-MEDROL IV 125 mg (NOW). Given 00:10/05/2016 Charisse Mathew, Medication Administered: AZITHROMYCIN [PO], Dose: 500 mg Tablets PO. Medication Ordered: Azithromycin PO 500 mg (NOW). Given 00:10/05/2016 Charisse Mathew, Medication Administered: TORADOL [IVP], Dose: 30 mg IVP over 1 minute(s), Site: #1 right AC. Medication Ordered: Toradol IV 30 mg (NOW).
--- NOTE | 2016-10-08 00:12 | ED MAR SUMMARY ---
..... Medication Administration Record [facility] [address] [place] [address] Patient: JACK SINGLETON Visit ID: [id number] 56y, M Weight: 88.4 kg Height/Length: 69 in BMI: 28.8 ALLERGIES: Naproxen, Tegretol Given 23:07 10/04/2016 Charisse Mathew, Medication Administered: DUONEB [NEB TX] (IPRATROPIUM-ALBUTEROL), Dose: 1 unit dose Nebulizer Neb TX. Medication Ordered: DuoNeb Neb Tx 1 unit dose (back logged for just after time patient roomed). Given 00:10/05/2016 Charisse Mathew, Medication Administered: SOLU-MEDROL [IVP] (METHYLPREDNISOLONE SODIUM SUCC), Dose: 125 mg IVP over 3 minute(s), Site: #1 right AC. Medication Ordered: Solu-MEDROL IV 125 mg (NOW). Given 00:10/05/2016 Charisse Mathew, Medication Administered: AZITHROMYCIN [PO], Dose: 500 mg Tablets PO. Medication Ordered: Azithromycin PO 500 mg (NOW). Given 00:10/05/2016 Charisse Mathew, Medication Administered: TORADOL [IVP], Dose: 30 mg IVP over 1 minute(s), Site: #1 right AC. Medication Ordered: Toradol IV 30 mg (NOW).
--- NOTE | 2016-10-08 00:12 | ED MED RECONCILIATION SUMMARY ---
Patient: JACK SINGLETON Medication Reconciliation Report [facility] VisitID: [id number] [address] [place] [address] 56y, M Registration Date/Time: 10/04/2016 Weight: 88.4 kg Height/Length: 69 in. BMI: 28.8 ALLERGIES: Naproxen, Tegretol The patient's Home Medications are listed below: CONTINUE TAKING THE FOLLOWING MEDICATIONS: AmLODIPine Besylate Oral (5 mg) 1 tablet, daily Arnuity 200mcg, 2x a day, inhaled powder CeleXA Oral 40 mg, daily HydrOXYzine HCl Oral 25 mg, daily Levothyroxine Sodium Oral 175 mcg, daily Losartan Potassium Oral (25 mg) 1 tablet, daily Methocarbamol Oral Steroid, unsure of medication name Ventolin HFA Inhalation 2 puffs, 4x a day ZyPREXA Oral 7.5 mg, daily The source(s) of the original Home Medication information: Not obtained. The following Medications were given to the patient in the Emergency Department: SOLU-MEDROL [IVP] IVP 125 mg, administered: 10/05/2016 12:10:00 AM Azithromycin [PO] PO 500 mg, administered: 10/05/2016 12:10:00 AM Toradol [IVP] IVP 30 mg, administered: 10/05/2016 12:10:00 AM Duoneb [Neb Tx] Neb TX 1 unit dose, administered: 10/04/2016 11:07:00 PM The following Medications were prescribed to the patient: Zithromax Z-Deep: Take according to package instructions. No refills. Substitution is permissible. -- Gurjit Granados Dr. [place] 5 mg / 325 mg tablets: take 1 orally every 6 hours as needed for pain. Dispense ten (10). No refill. Substitution is permissible. -- Gurjit Granados Dr. Phenergan w/ Codeine 10mg / 6.25mg per 5 mL: take 1-2 teaspoons every 6 hours as needed for cough. Dispense sixty (60) mL. No refill. Substitution is permissible.(at night only) -- Gurjit Granados Dr. Prednisone every day for 5 days. Dispense sufficient quantity. No refills.(60 mg PO.) -- Gurjit Granados Dr.
--- NOTE | 2016-10-08 00:12 | ED DISCHARGE INSTRUCTIONS ---
Patient: JACK SINGLETON General Instructions [facility] VisitID: [id number] [place] [address] 56y, M Registration Date/Time: 10/04/2016 Acute exacerbation of COPD. INSTRUCTIONS Warnings: GENERAL WARNINGS: Return or contact your physician immediately if your condition worsens or changes unexpectedly, if not improving as expected, or if other problems arise. Specifically return if pain, vomiting, bleeding, breathing difficulty or fever. Your Current Medications: CONTINUE TAKING THE FOLLOWING MEDICATIONS: AmLODIPine Besylate Oral : Tablet 5 mg, 1 tablet daily. Arnuity* : 200mcg 2x a day, inhaled powder. CeleXA Oral : 40 mg daily. HydrOXYzine HCl Oral : 25 mg daily. Levothyroxine Sodium Oral : 175 mcg daily. Losartan Potassium Oral : Tablet 25 mg, 1 tablet daily. Methocarbamol Oral. Steroid, unsure of medication name *. Ventolin HFA Inhalation : 2 puffs 4x a day. ZyPREXA Oral : 7.5 mg daily. Prescription Medications: Zithromax Z-Deep: Take according to package instructions. No refills. Substitution is permissible. [place] 5 mg / 325 mg tablets: take 1 orally every 6 hours as needed for pain. Dispense ten (10). No refill. Substitution is permissible. Phenergan w/ Codeine 10mg / 6.25mg per 5 mL: take 1-2 teaspoons every 6 hours as needed for cough. Dispense sixty (60) mL. No refill. Substitution is permissible. (at night only) Prednisone every day for 5 days. Dispense sufficient quantity. No refills. (60 mg PO.) Follow-up: Return to the emergency department as needed. Follow up with your doctor in three days. Reason for referral: recheck today's concerns. Summary of care provided to patient via paper. Screening today revealed the patient's blood pressure to be in the normal range. The patient should follow up with a primary care provider for blood pressure management. Understanding of the discharge instructions verbalized by patient. ADDITIONAL INFORMATION COPD Flare Both emphysema and chronic bronchitis are forms of chronic obstructive pulmonary disease (COPD). It is most often caused by many years of smoking tobacco. Many things can make your lung disease suddenly get worse. These causes include the common cold, pneumonia, acute bronchitis, missing doses of your regular breathing medicines, or being around smoke, dust, or other air pollutants. A COPD flare may last 7 to 14 days. Your doctor may prescribe medicineto relax your airways and prevent wheezing. Your doctor may also prescribe antibiotics if he or she thinks you havea bacterial infection. Prednisone can helpease inflammation in a severe attack. Home care Here are things you can do at home: Drink lots of water or other fluids (at least 10 glasses a day) during an attack. This will loosen lung secretions and make it easier to breathe. If you have heart or kidney disease, check with your doctor before you drink extra amounts of fluids. Take prescribed medicine exactly at the times advised. If you have a hand-held inhaler or aerosol breathing medicine, don't use it more than once every 4 hours, unless your doctor tells you to. If you were givenan antibiotic or prednisone, take all of the medicine even if you are feeling better after a few days. Don't smoke. Avoid being aroundthe smoke of others. If you were given an inhaler, use it exactly as directed. If you need to use it more often than prescribed, your condition may be getting worse. Call your doctor. Follow-up care Follow up with your health care provider.If you are 65 or older or have chronic asthma or COPD, you should get a single dose of the pneumococcal vaccine and aflu shot each year. You may need a second dose of the pneumococcal vaccine if you had the first dose at a younger age. Your health care provider will let you know if you need a second dose. For all other people, the usual dose for the pneumococcal vaccine is 1 or 2 shots. Yourprovider can discuss this with you. When to seek medical care Get prompt medical attention ifany of these occur: Increased wheezing or shortness of breath Need to use your inhalers more often than usual without relief Fever of 100.4F(38C) or higher, or as directed by your health care provider Coughing up lots of dark-colored or bloody sputum (mucus) Chest pain with each breath You do not start to improve within 24 hours Azithromycin Oral tablet What is this medicine? AZITHROMYCIN (az ith mariama MYE sin) is a macrolide antibiotic. It is used to treat or prevent certain kinds of bacterial infections. It will not work for colds, flu, or other viral infections. How should I use this medicine? Take this medicine by mouth with a full glass of water. Follow the directions on the prescription label. The tablets can be taken with food or on an empty stomach. If the medicine upsets your stomach, take it with food. Take your medicine at regular intervals. Do not take your medicine more often than directed. Take all of your medicine as directed even if you think your are better. Do not skip doses or stop your medicine early. Talk to your recovery manager regarding the use of this medicine in children. Special care may be needed. What side effects may I notice from receiving this medicine? Side effects that you should report to your doctor or health team primary care physician as soon as possible: allergic reactions like skin rash, itching or hives, swelling of the face, lips, or tongue confusion, nightmares or hallucinations dark urine difficulty breathing hearing loss irregular heartbeat or chest pain pain or difficulty passing urine redness, blistering, peeling or loosening of the skin, including inside the mouth white patches or sores in the mouth yellowing of the eyes or skin Side effects that usually do not require medical attention (report to your doctor or health team primary care physician if they continue or are bothersome): diarrhea dizziness, drowsiness headache stomach upset or vomiting tooth discoloration vaginal irritation What may interact with this medicine? Do not take this medicine with any of the following medications: lincomycin This medicine may also interact with the following medications: amiodarone antacids cyclosporine digoxin magnesium nelfinavir phenytoin warfarin What if I miss a dose? If you miss a dose, take it as soon as you can. If it is almost time for your next dose, take only that dose. Do not take double or extra doses. Where should I keep my medicine? Keep out of the reach of children. Store at room temperature between 15 and 30 degrees C (59 and 86 degrees F). Throw away any unused medicine after the expiration date. What should I tell my health care provider before I take this medicine? They need to know if you have any of these conditions: kidney disease liver disease irregular heartbeat or heart disease an unusual or allergic reaction to azithromycin, erythromycin, other macrolide antibiotics, foods, dyes, or preservatives or trying to get breast-feeding What should I watch for while using this medicine? Tell your doctor or health team primary care physician if your symptoms do not improve. Do not treat diarrhea with over the counter products. Contact your doctor if you have diarrhea that lasts more than 2 days or if it is severe and watery. This medicine can make you more sensitive to the sun. Keep out of the sun. If you cannot avoid being in the sun, wear protective clothing and use sunscreen. Do not use sun lamps or tanning beds/booths. Hydrocodone Bitartrate, Acetaminophen Oral tablet What is this medicine? ACETAMINOPHEN; HYDROCODONE (a set a JEREMIAH radha fen; cricket droe KOE done) is a pain reliever. It is used to treat mild to moderate pain. How should I use this medicine? Take this medicine by mouth. Swallow it with a full glass of water. Follow the directions on the prescription label. If the medicine upsets your stomach, take the medicine with food or milk. Do not take more than you are told to take. Talk to your recovery manager regarding the use of this medicine in children. This medicine is not approved for use in children. What side effects may I notice from receiving this medicine? Side effects that you should report to your doctor or health team primary care physician as soon as possible: allergic reactions like skin rash, itching or hives, swelling of the face, lips, or tongue breathing problems confusion feeling faint or lightheaded, falls stomach pain yellowing of the eyes or skin Side effects that usually do not require medical attention (report to your doctor or health team primary care physician if they continue or are bothersome): nausea, vomiting stomach upset What may interact with this medicine? alcohol antihistamines isoniazid medicines for depression, anxiety, or psychotic disturbances medicines for sleep muscle relaxants naltrexone narcotic medicines (opiates) for pain phenobarbital ritonavir tramadol What if I miss a dose? If you miss a dose, take it as soon as you can. If it is almost time for your next dose, take only that dose. Do not take double or extra doses. Where should I keep my medicine? Keep out of the reach of children. This medicine can be abused. Keep your medicine in a safe place to protect it from theft. Do not share this medicine with anyone. Selling or giving away this medicine is dangerous and against the law. Store at room temperature between 15 and 30 degrees C (59 and 86 degrees F). Protect from light. Keep container tightly closed. Throw away any unused medicine after the expiration date. Discard unused medicine and used packaging carefully. Pets and children can be harmed if they find used or lost packages. What should I tell my health care provider before I take this medicine? They need to know if you have any of these conditions: brain tumor Crohn's disease, inflammatory bowel disease, or ulcerative colitis drink more than 3 alcohol-containing drinks per day drug abuse or addiction head injury heart or circulation problems kidney disease or problems going to the bathroom liver disease lung disease, asthma, or breathing problems an unusual or allergic reaction to acetaminophen, hydrocodone, other opioid analgesics, other medicines, foods, dyes, or preservatives or trying to get breast-feeding What should I watch for while using this medicine? Tell your doctor or health team primary care physician if your pain does not go away, if it gets worse, or if you have new or a different type of pain. You may develop tolerance to the medicine. Tolerance means that you will need a higher dose of the medicine for pain relief. Tolerance is normal and is expected if you take the medicine for a long time. Do not suddenly stop taking your medicine because you may develop a severe reaction. Your body becomes used to the medicine. This does NOT mean you are addicted. Addiction is a behavior related to getting and using a drug for a non-medical reason. If you have pain, you have a medical reason to take pain medicine. Your doctor will tell you how much medicine to take. If your doctor wants you to stop the medicine, the dose will be slowly lowered over time to avoid any side effects. You may get drowsy or dizzy when you first start taking the medicine or change doses. Do not drive, use machinery, or do anything that may be dangerous until you know how the medicine affects you. Stand or sit up slowly. There are different types of narcotic medicines (opiates) for pain. If you take more than one type at the same time, you may have more side effects. Give your health care provider a list of all medicines you use. Your doctor will tell you how much medicine to take. Do not take more medicine than directed. Call emergency for help if you have problems breathing. The medicine will cause constipation. Try to have a bowel movement at least every 2 to 3 days. If you do not have a bowel movement for 3 days, call your doctor or health team primary care physician. Too much acetaminophen can be very dangerous. Do not take Tylenol (acetaminophen) or medicines that contain acetaminophen with this medicine. Many non-prescription medicines contain acetaminophen. Always read the labels carefully. Prednisone Oral tablet What is this medicine? PREDNISONE (PRED ni sone) is a corticosteroid. It is commonly used to treat inflammation of the skin, joints, lungs, and other organs. Common conditions treated include asthma, allergies, and arthritis. It is also used for other conditions, such as blood disorders and diseases of the adrenal glands. How should I use this medicine? Take this medicine by mouth with a glass of water. Follow the directions on the prescription label. Take this medicine with food. If you are taking this medicine once a day, take it in the morning. Do not take more medicine than you are told to take. Do not suddenly stop taking your medicine because you may develop a severe reaction. Your doctor will tell you how much medicine to take. If your doctor wants you to stop the medicine, the dose may be slowly lowered over time to avoid any side effects. Talk to your recovery manager regarding the use of this medicine in children. Special care may be needed. What side effects may I notice from receiving this medicine? Side effects that you should report to your doctor or health team primary care physician as soon as possible: allergic reactions like skin rash, itching or hives, swelling of the face, lips, or tongue changes in emotions or moods changes in vision depressed mood eye pain fever or chills, cough, sore throat, pain or difficulty passing urine increased thirst swelling of ankles, feet Side effects that usually do not require medical attention (report to your doctor or health team primary care physician if they continue or are bothersome): confusion, excitement, restlessness headache nausea, vomiting skin problems, acne, thin and shiny skin trouble sleeping weight gain What may interact with this medicine? Do not take this medicine with any of the following medications: metyrapone mifepristone This medicine may also interact with the following medications: aminoglutethimide amphotericin B aspirin and aspirin-like medicines barbiturates certain medicines for diabetes, like glipizide or glyburide cholestyramine cholinesterase inhibitors cyclosporine digoxin diuretics ephedrine female hormones, like estrogens and control pills isoniazid ketoconazole NSAIDS, medicines for pain and inflammation, like ibuprofen or naproxen phenytoin rifampin toxoids vaccines warfarin What if I miss a dose? If you miss a dose, take it as soon as you can. If it is almost time for your next dose, talk to your doctor or health team primary care physician. You may need to miss a dose or take an extra dose. Do not take double or extra doses without advice. Where should I keep my medicine? Keep out of the reach of children. Store at room temperature between 15 and 30 degrees C (59 and 86 degrees F). Protect from light. Keep container tightly closed. Throw away any unused medicine after the expiration date. What should I tell my health care provider before I take this medicine? They need to know if you have any of these conditions: Tania's syndrome diabetes glaucoma heart disease high blood pressure infection (especially a virus infection such as chickenpox, cold sores, or herpes) kidney disease liver disease mental illness myasthenia gravis osteoporosis seizures stomach or intestine problems thyroid disease an unusual or allergic reaction to lactose, prednisone, other medicines, foods, dyes, or preservatives or trying to get breast-feeding What should I watch for while using this medicine? Visit your doctor or health team primary care physician for regular checks on your progress. If you are taking this medicine over a prolonged period, carry an identification card with your name and address, the type and dose of your medicine, and your doctor's name and address. This medicine may increase your risk of getting an infection. Tell your doctor or health team primary care physician if you are around anyone with measles or chickenpox, or if you develop sores or blisters that do not heal properly. If you are going to have surgery, tell your doctor or health team primary care physician that you have taken this medicine within the last twelve months. Ask your doctor or health team primary care physician about your diet. You may need to lower the amount of salt you eat. This medicine may affect blood sugar levels. If you have diabetes, check with your doctor or health team primary care physician before you change your diet or the dose of your diabetic medicine. You have been given the following additional information: COPD Flare Azithromycin Oral tablet Hydrocodone Bitartrate, Acetaminophen Oral tablet Prednisone Oral tablet (Electronically signed by Gurjit Granados Dr. 10/08/2016 0:11)
--- NOTE | 2016-10-08 00:12 | ED MED RECONCILIATION SUMMARY ---
Patient: JACK SINGLETON Medication Reconciliation Report [facility] VisitID: [id number] [place] [address] 56y, M Registration Date/Time: 10/04/2016 Weight: 88.4 kg Height/Length: 69 in. BMI: 28.8 ALLERGIES: Naproxen, Tegretol The patient's Home Medications are listed below: CONTINUE TAKING THE FOLLOWING MEDICATIONS: AmLODIPine Besylate Oral (5 mg) 1 tablet, daily Arnuity 200mcg, 2x a day, inhaled powder CeleXA Oral 40 mg, daily HydrOXYzine HCl Oral 25 mg, daily Levothyroxine Sodium Oral 175 mcg, daily Losartan Potassium Oral (25 mg) 1 tablet, daily Methocarbamol Oral Steroid, unsure of medication name Ventolin HFA Inhalation 2 puffs, 4x a day ZyPREXA Oral 7.5 mg, daily The source(s) of the original Home Medication information: Not obtained. The following Medications were given to the patient in the Emergency Department: SOLU-MEDROL [IVP] IVP 125 mg, administered: 10/05/2016 12:10:00 AM Azithromycin [PO] PO 500 mg, administered: 10/05/2016 12:10:00 AM Toradol [IVP] IVP 30 mg, administered: 10/05/2016 12:10:00 AM Duoneb [Neb Tx] Neb [place] 1 unit dose, administered: 10/04/2016 11:07:00 PM The following Medications were prescribed to the patient: Zithromax Z-Deep: Take according to package instructions. No refills. Substitution is permissible. -- Gurjit Granados Dr. [place] 5 mg / 325 mg tablets: take 1 orally every 6 hours as needed for pain. Dispense ten (10). No refill. Substitution is permissible. -- Gurjit Granados Dr. Phenergan w/ Codeine 10mg / 6.25mg per 5 mL: take 1-2 teaspoons every 6 hours as needed for cough. Dispense sixty (60) mL. No refill. Substitution is permissible.(at night only) -- Gurjit Granados Dr. Prednisone every day for 5 days. Dispense sufficient quantity. No refills.(60 mg PO.) -- Gurjit Granados Dr.
--- NOTE | 2016-10-08 00:12 | ED DISCHARGE INSTRUCTIONS ---
Patient: JACK SINGLETON General Instructions [facility] VisitID: [id number] [place] [address] 56y, M Registration Date/Time: 10/04/2016 Acute exacerbation of COPD. INSTRUCTIONS Warnings: GENERAL WARNINGS: Return or contact your physician immediately if your condition worsens or changes unexpectedly, if not improving as expected, or if other problems arise. Specifically return if pain, vomiting, bleeding, breathing difficulty or fever. Your Current Medications: CONTINUE TAKING THE FOLLOWING MEDICATIONS: AmLODIPine Besylate Oral : Tablet 5 mg, 1 tablet daily. Arnuity* : 200mcg 2x a day, inhaled powder. CeleXA Oral : 40 mg daily. HydrOXYzine HCl Oral : 25 mg daily. Levothyroxine Sodium Oral : 175 mcg daily. Losartan Potassium Oral : Tablet 25 mg, 1 tablet daily. Methocarbamol Oral. Steroid, unsure of medication name *. Ventolin HFA Inhalation : 2 puffs 4x a day. ZyPREXA Oral : 7.5 mg daily. Prescription Medications: Zithromax Z-Deep: Take according to package instructions. No refills. Substitution is permissible. [place] 5 mg / 325 mg tablets: take 1 orally every 6 hours as needed for pain. Dispense ten (10). No refill. Substitution is permissible. Phenergan w/ Codeine 10mg / 6.25mg per 5 mL: take 1-2 teaspoons every 6 hours as needed for cough. Dispense sixty (60) mL. No refill. Substitution is permissible. (at night only) Prednisone every day for 5 days. Dispense sufficient quantity. No refills. (60 mg PO.) Follow-up: Return to the emergency department as needed. Follow up with your doctor in three days. Reason for referral: recheck today's concerns. Summary of care provided to patient via paper. Screening today revealed the patient's blood pressure to be in the normal range. The patient should follow up with a primary care provider for blood pressure management. Understanding of the discharge instructions verbalized by patient. ADDITIONAL INFORMATION COPD Flare Both emphysema and chronic bronchitis are forms of chronic obstructive pulmonary disease (COPD). It is most often caused by many years of smoking tobacco. Many things can make your lung disease suddenly get worse. These causes include the common cold, pneumonia, acute bronchitis, missing doses of your regular breathing medicines, or being around smoke, dust, or other air pollutants. A COPD flare may last 7 to 14 days. Your doctor may prescribe medicineto relax your airways and prevent wheezing. Your doctor may also prescribe antibiotics if he or she thinks you havea bacterial infection. Prednisone can helpease inflammation in a severe attack. Home care Here are things you can do at home: Drink lots of water or other fluids (at least 10 glasses a day) during an attack. This will loosen lung secretions and make it easier to breathe. If you have heart or kidney disease, check with your doctor before you drink extra amounts of fluids. Take prescribed medicine exactly at the times advised. If you have a hand-held inhaler or aerosol breathing medicine, don't use it more than once every 4 hours, unless your doctor tells you to. If you were givenan antibiotic or prednisone, take all of the medicine even if you are feeling better after a few days. Don't smoke. Avoid being aroundthe smoke of others. If you were given an inhaler, use it exactly as directed. If you need to use it more often than prescribed, your condition may be getting worse. Call your doctor. Follow-up care Follow up with your health care provider.If you are 65 or older or have chronic asthma or COPD, you should get a single dose of the pneumococcal vaccine and aflu shot each year. You may need a second dose of the pneumococcal vaccine if you had the first dose at a younger age. Your health care provider will let you know if you need a second dose. For all other people, the usual dose for the pneumococcal vaccine is 1 or 2 shots. Yourprovider can discuss this with you. When to seek medical care Get prompt medical attention ifany of these occur: Increased wheezing or shortness of breath Need to use your inhalers more often than usual without relief Fever of 100.4F(38C) or higher, or as directed by your health care provider Coughing up lots of dark-colored or bloody sputum (mucus) Chest pain with each breath You do not start to improve within 24 hours Azithromycin Oral tablet What is this medicine? AZITHROMYCIN (az ith maraima MYE sin) is a macrolide antibiotic. It is used to treat or prevent certain kinds of bacterial infections. It will not work for colds, flu, or other viral infections. How should I use this medicine? Take this medicine by mouth with a full glass of water. Follow the directions on the prescription label. The tablets can be taken with food or on an empty stomach. If the medicine upsets your stomach, take it with food. Take your medicine at regular intervals. Do not take your medicine more often than directed. Take all of your medicine as directed even if you think your are better. Do not skip doses or stop your medicine early. Talk to your restorative rehab aide regarding the use of this medicine in children. Special care may be needed. What side effects may I notice from receiving this medicine? Side effects that you should report to your doctor or health pet caretaker as soon as possible: allergic reactions like skin rash, itching or hives, swelling of the face, lips, or tongue confusion, nightmares or hallucinations dark urine difficulty breathing hearing loss irregular heartbeat or chest pain pain or difficulty passing urine redness, blistering, peeling or loosening of the skin, including inside the mouth white patches or sores in the mouth yellowing of the eyes or skin Side effects that usually do not require medical attention (report to your doctor or health pet caretaker if they continue or are bothersome): diarrhea dizziness, drowsiness headache stomach upset or vomiting tooth discoloration vaginal irritation What may interact with this medicine? Do not take this medicine with any of the following medications: lincomycin This medicine may also interact with the following medications: amiodarone antacids cyclosporine digoxin magnesium nelfinavir phenytoin warfarin What if I miss a dose? If you miss a dose, take it as soon as you can. If it is almost time for your next dose, take only that dose. Do not take double or extra doses. Where should I keep my medicine? Keep out of the reach of children. Store at room temperature between 15 and 30 degrees C (59 and 86 degrees F). Throw away any unused medicine after the expiration date. What should I tell my health care provider before I take this medicine? They need to know if you have any of these conditions: kidney disease liver disease irregular heartbeat or heart disease an unusual or allergic reaction to azithromycin, erythromycin, other macrolide antibiotics, foods, dyes, or preservatives or trying to get breast-feeding What should I watch for while using this medicine? Tell your doctor or health pet caretaker if your symptoms do not improve. Do not treat diarrhea with over the counter products. Contact your doctor if you have diarrhea that lasts more than 2 days or if it is severe and watery. This medicine can make you more sensitive to the sun. Keep out of the sun. If you cannot avoid being in the sun, wear protective clothing and use sunscreen. Do not use sun lamps or tanning beds/booths. Hydrocodone Bitartrate, Acetaminophen Oral tablet What is this medicine? ACETAMINOPHEN; HYDROCODONE (a set a JEREMIAH radha fen; cricket droe KOE done) is a pain reliever. It is used to treat mild to moderate pain. How should I use this medicine? Take this medicine by mouth. Swallow it with a full glass of water. Follow the directions on the prescription label. If the medicine upsets your stomach, take the medicine with food or milk. Do not take more than you are told to take. Talk to your restorative rehab aide regarding the use of this medicine in children. This medicine is not approved for use in children. What side effects may I notice from receiving this medicine? Side effects that you should report to your doctor or health pet caretaker as soon as possible: allergic reactions like skin rash, itching or hives, swelling of the face, lips, or tongue breathing problems confusion feeling faint or lightheaded, falls stomach pain yellowing of the eyes or skin Side effects that usually do not require medical attention (report to your doctor or health pet caretaker if they continue or are bothersome): nausea, vomiting stomach upset What may interact with this medicine? alcohol antihistamines isoniazid medicines for depression, anxiety, or psychotic disturbances medicines for sleep muscle relaxants naltrexone narcotic medicines (opiates) for pain phenobarbital ritonavir tramadol What if I miss a dose? If you miss a dose, take it as soon as you can. If it is almost time for your next dose, take only that dose. Do not take double or extra doses. Where should I keep my medicine? Keep out of the reach of children. This medicine can be abused. Keep your medicine in a safe place to protect it from theft. Do not share this medicine with anyone. Selling or giving away this medicine is dangerous and against the law. Store at room temperature between 15 and 30 degrees C (59 and 86 degrees F). Protect from light. Keep container tightly closed. Throw away any unused medicine after the expiration date. Discard unused medicine and used packaging carefully. Pets and children can be harmed if they find used or lost packages. What should I tell my health care provider before I take this medicine? They need to know if you have any of these conditions: brain tumor Crohn's disease, inflammatory bowel disease, or ulcerative colitis drink more than 3 alcohol-containing drinks per day drug abuse or addiction head injury heart or circulation problems kidney disease or problems going to the bathroom liver disease lung disease, asthma, or breathing problems an unusual or allergic reaction to acetaminophen, hydrocodone, other opioid analgesics, other medicines, foods, dyes, or preservatives or trying to get breast-feeding What should I watch for while using this medicine? Tell your doctor or health pet caretaker if your pain does not go away, if it gets worse, or if you have new or a different type of pain. You may develop tolerance to the medicine. Tolerance means that you will need a higher dose of the medicine for pain relief. Tolerance is normal and is expected if you take the medicine for a long time. Do not suddenly stop taking your medicine because you may develop a severe reaction. Your body becomes used to the medicine. This does NOT mean you are addicted. Addiction is a behavior related to getting and using a drug for a non-medical reason. If you have pain, you have a medical reason to take pain medicine. Your doctor will tell you how much medicine to take. If your doctor wants you to stop the medicine, the dose will be slowly lowered over time to avoid any side effects. You may get drowsy or dizzy when you first start taking the medicine or change doses. Do not drive, use machinery, or do anything that may be dangerous until you know how the medicine affects you. Stand or sit up slowly. There are different types of narcotic medicines (opiates) for pain. If you take more than one type at the same time, you may have more side effects. Give your health care provider a list of all medicines you use. Your doctor will tell you how much medicine to take. Do not take more medicine than directed. Call emergency for help if you have problems breathing. The medicine will cause constipation. Try to have a bowel movement at least every 2 to 3 days. If you do not have a bowel movement for 3 days, call your doctor or health pet caretaker. Too much acetaminophen can be very dangerous. Do not take Tylenol (acetaminophen) or medicines that contain acetaminophen with this medicine. Many non-prescription medicines contain acetaminophen. Always read the labels carefully. Prednisone Oral tablet What is this medicine? PREDNISONE (PRED ni sone) is a corticosteroid. It is commonly used to treat inflammation of the skin, joints, lungs, and other organs. Common conditions treated include asthma, allergies, and arthritis. It is also used for other conditions, such as blood disorders and diseases of the adrenal glands. How should I use this medicine? Take this medicine by mouth with a glass of water. Follow the directions on the prescription label. Take this medicine with food. If you are taking this medicine once a day, take it in the morning. Do not take more medicine than you are told to take. Do not suddenly stop taking your medicine because you may develop a severe reaction. Your doctor will tell you how much medicine to take. If your doctor wants you to stop the medicine, the dose may be slowly lowered over time to avoid any side effects. Talk to your restorative rehab aide regarding the use of this medicine in children. Special care may be needed. What side effects may I notice from receiving this medicine? Side effects that you should report to your doctor or health pet caretaker as soon as possible: allergic reactions like skin rash, itching or hives, swelling of the face, lips, or tongue changes in emotions or moods changes in vision depressed mood eye pain fever or chills, cough, sore throat, pain or difficulty passing urine increased thirst swelling of ankles, feet Side effects that usually do not require medical attention (report to your doctor or health pet caretaker if they continue or are bothersome): confusion, excitement, restlessness headache nausea, vomiting skin problems, acne, thin and shiny skin trouble sleeping weight gain What may interact with this medicine? Do not take this medicine with any of the following medications: metyrapone mifepristone This medicine may also interact with the following medications: aminoglutethimide amphotericin B aspirin and aspirin-like medicines barbiturates certain medicines for diabetes, like glipizide or glyburide cholestyramine cholinesterase inhibitors cyclosporine digoxin diuretics ephedrine female hormones, like estrogens and control pills isoniazid ketoconazole NSAIDS, medicines for pain and inflammation, like ibuprofen or naproxen phenytoin rifampin toxoids vaccines warfarin What if I miss a dose? If you miss a dose, take it as soon as you can. If it is almost time for your next dose, talk to your doctor or health pet caretaker. You may need to miss a dose or take an extra dose. Do not take double or extra doses without advice. Where should I keep my medicine? Keep out of the reach of children. Store at room temperature between 15 and 30 degrees C (59 and 86 degrees F). Protect from light. Keep container tightly closed. Throw away any unused medicine after the expiration date. What should I tell my health care provider before I take this medicine? They need to know if you have any of these conditions: Tania's syndrome diabetes glaucoma heart disease high blood pressure infection (especially a virus infection such as chickenpox, cold sores, or herpes) kidney disease liver disease mental illness myasthenia gravis osteoporosis seizures stomach or intestine problems thyroid disease an unusual or allergic reaction to lactose, prednisone, other medicines, foods, dyes, or preservatives or trying to get breast-feeding What should I watch for while using this medicine? Visit your doctor or health pet caretaker for regular checks on your progress. If you are taking this medicine over a prolonged period, carry an identification card with your name and address, the type and dose of your medicine, and your doctor's name and address. This medicine may increase your risk of getting an infection. Tell your doctor or health pet caretaker if you are around anyone with measles or chickenpox, or if you develop sores or blisters that do not heal properly. If you are going to have surgery, tell your doctor or health pet caretaker that you have taken this medicine within the last twelve months. Ask your doctor or health pet caretaker about your diet. You may need to lower the amount of salt you eat. This medicine may affect blood sugar levels. If you have diabetes, check with your doctor or health pet caretaker before you change your diet or the dose of your diabetic medicine. You have been given the following additional information: COPD Flare Azithromycin Oral tablet Hydrocodone Bitartrate, Acetaminophen Oral tablet Prednisone Oral tablet (Electronically signed by Grujit Granados Dr. 10/08/2016 0:11)
== END 2016-10-05 01:05 | disposition home or self-care (01) ==
LOC: ED SRH 22:54
DX: J44.1 Chronic obstructive pulmonary disease with (acute) exacerbation (principal); Z79.51 Long term (current) use of inhaled steroids; Z79.52 Long term (current) use of systemic steroids; Z79.899 Other long term (current) drug therapy; Z88.6 Allergy status to analgesic agent; Z88.8 Allergy status to other drugs, medicaments and biological substances